=== PATIENT | female | born 1960 | race Caucasian/White ===

== ENCOUNTER 2024-08-03 18:58 | Inpatient (IN) ==
[2024-08-03 19:34] LABS: Basophils % (auto) 0.5 %; Eosinophils # (auto) 0.17 K/uL (0.00-0.50); Eosinophils % (auto) 0.9 %; Hematocrit (blood only) 38.6 % (37.0-47.0); Immature Granulocytes % (auto) 0.5 %; Lymphocytes # (auto) 2.38 K/uL (1.20-3.40); Lymphocytes % (auto) 12.4 %; Mean Corpuscular Hemoglobin 28.2 pg (25.0-34.0); Mean Corpuscular Hgb Conc 33.7 g/dL (32.0-36.0); Mean Corpuscular Volume 83.7 fL (80.0-100.0); Mean Platelet Volume 9.5 fL (9.4-12.4); Monocytes # (auto) 1.62 K/uL (0.11-0.59); Monocytes % (auto) 8.5 %; Neutrophils # (auto) 14.75 K/uL (1.40-6.50); Neutrophils % (auto) 77.2 %; Platelet Count 442 K/uL (130-400); RDW Coefficient of Variation 13.5 % (11.5-14.5); RDW Standard Deviation 41.7 fL (36.4-46.3); Red Blood Count 4.61 M/uL (4.20-5.40); White Blood Count 19.12 K/ul (4.8-10.8)
[2024-08-03 19:53] LABS: Albumin Globulin Ratio 1.1 (0.9-2); Albumin Level 4.2 gm/dl (3.4-5.0); BUN Creatinine Ratio 20.5 (10-20); Bilirubin,Total 0.6 mg/dl (0.2-1.0); Calcium 9.6 mg/dl (8.6-10.3); Creatinine Clr Calc Pharmacy 80.7 ml/min; Est GFR (African American) 93.8 ml/min; Est GFR (Non-African American) 80.9 ml/min; Globulin 3.8 gm/dl (2.5-4.0); Potassium 3.7 mmol/L (3.5-5.1)
[2024-08-03] MEDS ORDERED: VANCOMYCIN CONSULT ACTIVE PRN (19:53)
[2024-08-03] MEDS: PIPERACILLIN/TAZOBACTAM 4.5 GM/100 ML BAG IV ONE (19:55)
[2024-08-03] MEDS: SODIUM CHLORIDE 0.9% 1,000 ML IV ONE ×2 (19:55→20:59)
--- NOTE | 2024-08-03 20:00 | Emergency Department Note ---
Impression & Plan Sepsis, Cellulitis of left leg ED Provider Note HISTORY OF PRESENT ILLNESS: Patient is a 63-year-old female presenting with left leg redness and swelling. Patient reports that she noticed the left lower leg being red and slightly swollen starting about a week ago. She reports over the last week her redness and swelling has progressed up her leg, more noticeably in the last 48 hours. She denies any recent antibiotic use. Denies any trauma to the leg. She reports she thought she got bit by something about a week ago, as she had an itchy wound on the back of her left calf. She is unsure what she was bit by. Denies any fevers at home. Denies any recent antibiotic or steroid use. She denies being diabetic. Denies any significant pain to the leg. She believes her tetanus is up-to-date. She noticed the progressively worsening redness coming up her leg, prompting her to come and get evaluated today. Patient denies any DVT or PE history. She is not on any anticoagulation. ROS: as above PHYSICAL EXAM: Constitutional: Patient appears in no acute distress. HENT: Head: Normocephalic and atraumatic. Eyes: EOMI, PERRL Mouth/Throat: Mucous membranes moist. Neck: Trachea midline. Neck supple. Cardiovascular: Tachycardic with regular rhythm. No murmurs, rubs or gallops. Intact distal pulses. Pulmonary/Chest: No respiratory distress. Breath sounds clear and equal bilaterally. No wheezes or rales. No chest wall tenderness to palpation. Abdominal: Abdomen soft, no tenderness, rebound or guarding. Musculoskeletal: - LLE: Left leg is erythematous from the ankle up to the knee. There are well-healed scabs to the anterior johnson. +2 pitting edema of the extremity. No palpable crepitus. Intact DP and PT pulses. Patient is able to wiggle toes and dorsiflex and plantarflex the ankle. She does have a scabbed over wound on the posterior calf. Skin: Warm and dry. No rash, erythema, pallor or cyanosis Psychiatric: Appropriate mood and affect for situation. Neurological: Alert and keenly responsive. CN II-XII grossly intact, moving all extremities equally and fully. MDM: - Vitals signs showed hypertension and tachycardia - History obtained via patient. History as above. - Chronic conditions affecting care: HTN - Differential diagnoses include, but are not limited to: Cellulitis; necrotizing fasciitis; contact dermatitis - Order placed for continuous cardiac monitoring. At this time, monitor showed rate of 95 bpm with normal sinus rhythm, per my interpretation. - External medical records reviewed. - EKG interpreted by myself showed normal sinus rhythm. Rate 98 bpm. QT 368. No acute ischemic changes. - Laboratory workup interpreted by myself showed leukocytosis (WBC 19.12) with neutrophilic predominance; normal lactate; grossly normal electrolytes; hyperglycemia (glucose 126); normal procalcitonin - CRP ordered - Xray left tib-fib's showed edema of the tissues of the lower extremity but no obvious gas, per my interpretation. - Patient has no appreciable tenderness to palpation of the overlying erythema. - Given patient's tachycardia, leukocytosis and obvious cellulitis of her left lower extremity, she meets sepsis criteria. - Blood culture obtained. - Patient given IV vancomycin, zosyn and clindamycin for antibiotic coverage. - Patient given 2L NS in ER. Tetanus updated. Patient sepsis fluid volume calculation based on ideal body weight is 1568.10 mL. - Discussion was had with wrapper caser about patient's case and need for admission - Hospitalist, Dr. Mohan, consulted for admission - Patient admitted to [facility] for further evaluation and management. I have personally spent 38 minutes of critical care time in the direct management of this patient. This includes bedside care, interpretation of diagnostic studies, and testing, discussion with consultants, patient, and family members, and other required patient management activities. This 38 minutes is in excess of all separately billable procedures. ASSESSMENT AND PLAN: Diagnosis: Sepsis; left lower extremity cellulitis Plan: Admit Past Med/Surg History Problem List (Updated 08/03/24 @ 20:44 by Aggie Avila MD) Cellulitis of left leg (Acute) Sepsis (Acute) Lab test negative for COVID-19 virus (Acute) Social History Smoking Status: Never smoker Preferred Language: Kazakh Feels Safe at Home: Yes Allergies Allergies Allergy/AdvReac Type Severity Reaction Status Date / Time No Known Allergies Allergy Unverified 08/03/24 20:39 Home Meds Home Medications Medication Instructions Recorded Confirmed nortriptyline 50 mg capsule 50 mg PO HS 03/20/24 08/03/24 propranolol 60 mg capsule,24 60 mg PO QAM 03/20/24 08/03/24 hr,extended release rosuvastatin 10 mg tablet 10 mg PO HS 03/20/24 08/03/24 tolterodine 2 mg capsule,extended 2 mg PO QAM 03/20/24 08/03/24 release 24 hr acetaminophen 300 mg-codeine 30 mg 1 tab PO Q6H PRN Mild Pain (Scale 08/03/24 08/03/24 tablet Score 1-4) aspirin 81 mg tablet,delayed 81 mg PO DAILY 08/03/24 08/03/24 release celecoxib 200 mg capsule 200 mg PO DAILY 08/03/24 08/03/24 gabapentin 300 mg capsule 300 mg PO BID 08/03/24 08/03/24 methimazole 5 mg tablet 5 mg PO QAM 08/03/24 08/03/24 oxycodone 5 mg tablet 5 mg PO Q4H PRN Pain 08/03/24 08/03/24 Results & Data (ED) Vital Signs Vital Signs - 24 hr 08/03/24 19:06 08/03/24 19:34 08/03/24 19:57 Temperature 36.2 C L Temperature Source Temporal Artery Scan Pulse Rate 97 H 95 H Pulse Rate [Finger] 97 H Pulse Rhythm [Finger] Regular Pulse Strength [Finger] Normal Respiratory Rate 16 20 Respiratory Effort / Characteristics Non-Labored Non-Labored Spontaneous Respiratory Depth Normal Normal Respiratory Pattern Regular Regular Blood Pressure 141/82 H Blood Pressure [Left Arm] 135/101 H Blood Pressure Mean 101 Blood Pressure Mean [Left Arm] 112 Pulse Oximetry 97 97 Oxygen Delivery Method Room Air Room Air Sepsis Recent Fever Within 48 Hours No Sepsis New/Unexplained Change in Mental Status No Sepsis Action Taken by Nursing No Action Required Laboratory Data 08/03/24 19:15 08/03/24 19:15 Lab Results 08/03/24 08/03/24 Range/Units 19:15 19:48 WBC 19.12 H (4.8-10.8) K/ul RBC 4.61 (4.20-5.40) M/uL Hgb 13.0 (12.0-16.0) g/dl Hct 38.6 (37.0-47.0) % MCV 83.7 (80.0-100.0) fL MCH 28.2 (25.0-34.0) pg MCHC 33.7 (32.0-36.0) g/dL RDW Std Deviation 41.7 (36.4-46.3) fL RDW Coeff of Elina 13.5 (11.5-14.5) % Plt Count 442 H (130-400) K/uL MPV 9.5 (9.4-12.4) fL Immature Gran % (Auto) 0.5 % Neut % (Auto) 77.2 % Lymph % (Auto) 12.4 % [place] % (Auto) 8.5 % Eos % (Auto) 0.9 % Baso % (Auto) 0.5 % Neut # (Auto) 14.75 H (1.40-6.50) K/uL Lymph # (Auto) 2.38 (1.20-3.40) K/uL [place] # (Auto) 1.62 H (0.11-0.59) K/uL Eos # (Auto) 0.17 (0.00-0.50) K/uL Baso # (Auto) 0.10 (0.00-0.20) K/uL Immature Gran # (Auto) 0.10 (0.01-0.20) K/uL Sodium 135 L (136-145) mmol/L Potassium 3.7 (3.5-5.1) mmol/L Chloride 100 (98-107) mmol/L Carbon Dioxide 27 (21-32) mmol/L Anion Gap 8 (3-11) BUN 16 (6-23) mg/dl Creatinine 0.78 (0.6-1.2) mg/dl Est Cr Clr Drug Dosing 80.7 ml/min Est GFR ( Amer) 93.8 ml/min Est GFR (Non-Af Amer) 80.9 ml/min BUN/Creatinine Ratio 20.5 H (10-20) Glucose 126 H (70-99(Fasting)) mg/dl Lactate 0.9 (0.4-2.0) mmol/L Calcium 9.6 (8.6-10.3) mg/dl Total Bilirubin 0.6 (0.2-1.0) mg/dl AST 17 (13-39) U/L ALT 17 (7-52) U/L Alkaline Phosphatase 149 H (34-104) U/L Total Protein 8.0 (6.0-8.3) gm/dl Albumin 4.2 (3.4-5.0) gm/dl Globulin 3.8 (2.5-4.0) gm/dl Albumin/Globulin Ratio 1.1 (0.9-2) Procalcitonin 0.09 (0-0.5) ng/ml Administered Medications Vancomycin HCl 2,250 mg/ (Sodium Chloride) 545 mls @ 200 mls/hr IV NOW ONE Stop: 08/03/24 22:36 Last Admin: 08/03/24 20:54 Dose: 200 mls/hr Documented By: SALOMON Sodium Chloride (Nss) 1,000 mls @ 999 mls/hr IV .Q1H1M ONE Stop: 08/03/24 21:43 Last Admin: 08/03/24 20:59 Dose: 999 mls/hr Documented By: SALOMON Discontinued Medications Diphtheria/Pertussis/Tetanus Vacc (Diphther/Tetan/Pertus Vaccine (Tdap, Adol/Adult) 0.5ml) 0.5 ml IM .ONCE ONE Stop: 08/03/24 20:10 Last Admin: 08/03/24 20:43 Dose: 0.5 ml Documented By: SALOMON Fentanyl Citrate (Fentanyl Citrate Pf 100 Mcg/2 Ml Vial) 50 mcg IV NOW STA Stop: 08/03/24 21:05 Last Admin: 08/03/24 21:18 Dose: 50 mcg Documented By: SALOMON Sodium Chloride (Nss) 1,000 mls @ 999 mls/hr IV .Q1H1M ONE Stop: 08/03/24 20:40 Last Infusion: 08/03/24 20:59 Dose: Infused Documented By: Admin: 08/03/24 19:55 Dose: 999 mls/hr Documented By: TOM Piperacillin Sod/Tazobactam Sod (Zosyn) 4.5 gm in 100 mls @ 200 mls/hr IV NOW ONE Stop: 08/03/24 20:09 Last Infusion: 08/03/24 20:42 Dose: Infused Documented By: Admin: 08/03/24 19:55 Dose: 200 mls/hr Documented By: TOM Clindamycin Phosphate (Cleocin/D5w) 900 mg in 50 mls @ 100 mls/hr IV NOW ONE Stop: 08/03/24 20:09 Last Infusion: 08/03/24 21:13 Dose: Infused Documented By: Admin: 08/03/24 20:42 Dose: 100 mls/hr Documented By: SALOMON Discharge Plan Visit Data Chief Complaint: Bite Stated Complaint: LEFT LEG SWOLLEN POSSIBLE BITE ED Provider: Aggie Avila Discharge Problem: Sepsis, Cellulitis of left leg Forms Stand Alone Forms: [facility] Prescriptions Prescriptions: No Action celecoxib 200 mg capsule 200 mg PO DAILY acetaminophen-codeine 300-30 mg tablet 1 tab PO Q6H PRN (Reason: Mild Pain (Scale Score 1-4)) aspirin 81 mg Tablet,Delayed Release (Dr/Ec) 81 mg PO DAILY methimazole 5 mg tablet 5 mg PO QAM gabapentin 300 mg capsule 300 mg PO BID oxycodone 5 mg tablet 5 mg PO Q4H PRN (Reason: Pain) tolterodine 2 mg capsule,extended release 24hr 2 mg PO QAM propranolol 60 mg capsule,extended release 24 hr 60 mg PO QAM nortriptyline 50 mg capsule 50 mg PO HS rosuvastatin 10 mg tablet 10 mg PO HS Referrals Referrals: Sophia Ramirez MD [Primary Care Provider] -
[2024-08-03] MEDS: CLINDAMYCIN/D5W 900 MG/50 ML BAG IV ONE (20:42)
[2024-08-03] MEDS: DIPHTHER/TETAN/PERTUS Vaccine (Tdap, Adol/Adult) 0.5mL IM ONE (20:43)
[2024-08-03] MEDS: VANCOMYCIN HCL 2,250 MG in SODIUM CHLORIDE 0.9% 500 ML IV ONE (20:54)
[2024-08-03] MEDS: fentaNYL citrate PF 100 MCG/2 ML VIAL IV STA (21:18)
[2024-08-03 22:25] LABS: C Reactive Protein 32.5 mg/dl (0-0.5)
--- NOTE | 2024-08-03 22:36 | History & Physical Report ---
Date of Service August 03, 2024 Assessment & Plan (1) Cellulitis of left leg: Plan: 63-year-old female with past medical history significant for prediabetes, hyperlipidemia, allergic rhinitis, incidental pulmonary nodule, hypertension, overactive bladder, osteoarthrosis, chronic bilateral low back pain, myelopathy, postconcussion syndrome, lichen sclerosis, obesity, insomnia, hyperthyroidism comes because of left lower extremity cellulitis. Patient states she had a bug bite in the left calf region about a week ago she thinks it might be a spider bite. She developed small wound at the bite site. Also developed erythema spreading into the left leg below knee downwards. And having a lot of pain. And having pain while ambulating. As it is is getting worse she came to the ER today. Denies any fevers. About 6 to 7 weeks ago she had a back surgery in [place] and she is ambulating with the cane currently. Has mild headache. Vision is okay. No runny nose or sore throat. Appetite is okay. No chest pain or shortness of breath. No nausea. No abdominal pain. Normal bowel and bladder movements. Hemodynamics are okay currently. Resting comfortably. Cellulitis of left leg Bug bite Will follow Lyme screen Hemodynamics okay Afebrile Lactic acid 0.9 CRP 32 WBC 19 Received Vanco and Zosyn and clinda in the ER Will continue with Vanco and Zosyn Gentle fluids Follow cultures Will also follow Dopplers to rule out DVT-No DVT Will Follow the response Close monitor Prediabetes Will follow HbA1c levels Diabetic diet Hyperthyroidism On methimazole Follow TSH Hypertension On propranolol and lisinopril/hctz Will monitor Hyperlipidemia On statin Chronic back pain Recent back surgery pt/ot when stable Continue home pain medications DVT prophylaxis Lovenox Disposition Medical floor Full code History of Present Illness Chief Complaint: Left lower extreme cellulitis Primary Care Provider: Sophia Ramirez MD 63-year-old female with past medical history significant for prediabetes, hyperlipidemia, allergic rhinitis, incidental pulmonary nodule, hypertension, ov eractive bladder, osteoarthrosis, chronic bilateral low back pain, myelopathy, postconcussion syndrome, lichen sclerosis, obesity, insomnia, hyperthyroidism comes because of left lower extremity cellulitis. Patient states she had a bug bite in the left calf region about a week ago she thinks it might be a spider bite. She developed small wound at the bite site. Also developed erythema spreading into the left leg below knee downwards. And having a lot of pain. And having pain while ambulating. As it is is getting worse she came to the ER today. Denies any fevers. About 6 to 7 weeks ago she had a back surgery in [place] and she is ambulating with the cane currently. Has mild headache. Vision is okay. No runny nose or sore throat. Appetite is okay. No chest pain or shortness of breath. No nausea. No abdominal pain. Normal bowel and bladder movements. Hemodynamics are okay currently. Resting comfortably. Past medical history. As mentioned above. Past surgical history.Colonoscopy. Ligation of oviducts. Laminectomy. Left Achilles tendon tenotomy. Social history. No smoking. Quit alcohol 1997. No drug use. Family history. Sister had breast cancer. Mother had hypertension. Maternal grandmother had SLE. Paternal grandmother had diabetes, heart disorder. Allergies Allergy/AdvReac Type Severity Reaction Status Date / Time No Known Allergies Allergy Unverified 08/03/24 20:39 Home Medications Medication Instructions Recorded Confirmed Type nortriptyline 50 mg capsule 50 mg PO HS 03/20/24 08/03/24 History propranolol 60 mg capsule,24 60 mg PO QAM 03/20/24 08/03/24 History hr,extended release rosuvastatin 10 mg tablet 10 mg PO HS 03/20/24 08/03/24 History tolterodine 2 mg capsule,extended 2 mg PO QAM 03/20/24 08/03/24 History release 24 hr acetaminophen 300 mg-codeine 30 mg 1 tab PO Q6H PRN Mild Pain (Scale 08/03/24 08/03/24 History tablet Score 1-4) aspirin 81 mg tablet,delayed 81 mg PO DAILY 08/03/24 08/03/24 History release celecoxib 200 mg capsule 200 mg PO DAILY 08/03/24 08/03/24 History gabapentin 300 mg capsule 300 mg PO BID 08/03/24 08/03/24 History lisinopril 10 1 tab PO DAILY 08/03/24 08/03/24 History mg-hydrochlorothiazide 12.5 mg tablet methimazole 5 mg tablet 5 mg PO QAM 08/03/24 08/03/24 History oxycodone 5 mg tablet 5 mg PO Q4H PRN Pain 08/03/24 08/03/24 History Past Med/Surg History Problem List (Updated 08/03/24 @ 20:44 by Aggie Avila MD) Cellulitis of left leg (Acute) Sepsis (Acute) Lab test negative for COVID-19 virus (Acute) Social History Smoking Status: Never smoker Second Hand Exposure: No; Do You Dip or Chew Tobacco: No; Tobacco Cessation Education Requested by Patient: No Hx Alcohol Use: No Hx Substance Use: No Preferred Language: Belarusian Communication Ability: Effective High Wire Artist Required: No Beliefs That Will Affect Care: None Current Living Situation: Significant Other Current Living Situation Comment: boyfriend Feels Safe at Home: Yes Safety Concerns: Feels Safe At This Time Assistive Devices: Cane and Glasses Review of Systems Review of Systems: All systems reviewed & are unremarkable except as noted in HPI & below Physical Exam Physical Exam: General- Not in distress. Head- atraumatic Eyes- PERRL. ENT- oropharynx clear Neck- supple, no JVD. Lungs- clear to auscultation no wheezing or crackles. Heart- regular rhythm; no murmur, no gallop. Abdomen- normal bowel sounds, soft, nontender, no distension. Extremities- Left lower extremity erythematous and edematous and warm on palpation. Small wound seen in left calf lateral aspect. no obvious drainage seen Neuro- alert, oriented PERRL, no facial palsy; no dysarthria; moves extremities Results & Data Results & Data Vital Signs (Past 12 Hours) Vital Signs Temp Pulse Pulse Resp BP BP Pulse Ox 08/03/24 21:21 98 H 20 97 08/03/24 21:21 152/102 H 08/03/24 21:21 152/102 H 08/03/24 21:18 98 H 20 98 08/03/24 20:53 155/107 H 08/03/24 20:48 99 H 20 92 08/03/24 20:27 101 H 18 98 08/03/24 20:06 100 H 26 H 96 08/03/24 20:00 135/101 H 08/03/24 20:00 135/101 H 08/03/24 19:57 97 H 20 135/101 H 97 08/03/24 19:45 96 H 17 97 08/03/24 19:34 95 H 08/03/24 19:33 93 H 19 97 08/03/24 19:30 138/94 08/03/24 19:30 138/94 08/03/24 19:30 138/94 08/03/24 19:06 36.2 C L 97 H 16 141/82 H 97 O2 Del Method 08/03/24 21:21 08/03/24 21:21 08/03/24 21:21 08/03/24 21:18 08/03/24 20:53 08/03/24 20:48 08/03/24 20:27 08/03/24 20:06 08/03/24 20:00 08/03/24 20:00 08/03/24 19:57 Room Air 08/03/24 19:45 08/03/24 19:34 08/03/24 19:33 08/03/24 19:30 08/03/24 19:30 08/03/24 19:30 08/03/24 19:06 Room Air Diagnostic Findings Laboratory Results WBC 19.12 K/ul (4.8-10.8) H 08/03/24 19:15 RBC 4.61 M/uL (4.20-5.40) 08/03/24 19:15 Hgb 13.0 g/dl (12.0-16.0) 08/03/24 19:15 Hct 38.6 % (37.0-47.0) 08/03/24 19:15 MCV 83.7 fL (80.0-100.0) 08/03/24 19:15 MCH 28.2 pg (25.0-34.0) 08/03/24 19:15 MCHC 33.7 g/dL (32.0-36.0) 08/03/24 19:15 RDW Std Deviation 41.7 fL (36.4-46.3) 08/03/24 19:15 RDW Coeff of Elina 13.5 % (11.5-14.5) 08/03/24 19:15 Plt Count 442 K/uL (130-400) H 08/03/24 19:15 MPV 9.5 fL (9.4-12.4) 08/03/24 19:15 Immature Gran % (Auto) 0.5 % 08/03/24 19:15 Neut % (Auto) 77.2 % 08/03/24 19:15 Lymph % (Auto) 12.4 % 08/03/24 19:15 [place] % (Auto) 8.5 % 08/03/24 19:15 Eos % (Auto) 0.9 % 08/03/24 19:15 Baso % (Auto) 0.5 % 08/03/24 19:15 Neut # (Auto) 14.75 K/uL (1.40-6.50) H 08/03/24 19:15 Lymph # (Auto) 2.38 K/uL (1.20-3.40) 08/03/24 19:15 [place] # (Auto) 1.62 K/uL (0.11-0.59) H 08/03/24 19:15 Eos # (Auto) 0.17 K/uL (0.00-0.50) 08/03/24 19:15 Baso # (Auto) 0.10 K/uL (0.00-0.20) 08/03/24 19:15 Immature Gran # (Auto) 0.10 K/uL (0.01-0.20) 08/03/24 19:15 Sodium 135 mmol/L (136-145) L 08/03/24 19:15 Potassium 3.7 mmol/L (3.5-5.1) 08/03/24 19:15 Chloride 100 mmol/L (98-107) 08/03/24 19:15 Carbon Dioxide 27 mmol/L (21-32) 08/03/24 19:15 Anion Gap 8 (3-11) 08/03/24 19:15 BUN 16 mg/dl (6-23) 08/03/24 19:15 Creatinine 0.78 mg/dl (0.6-1.2) 08/03/24 19:15 Est Cr Clr Drug Dosing 80.7 ml/min 08/03/24 19:15 Est GFR ( Amer) 93.8 ml/min 08/03/24 19:15 Est GFR (Non-Af Amer) 80.9 ml/min 08/03/24 19:15 BUN/Creatinine Ratio 20.5 (10-20) H 08/03/24 19:15 Glucose 126 mg/dl (70-99(Fasting)) H 08/03/24 19:15 Lactate 0.9 mmol/L (0.4-2.0) 08/03/24 19:48 Calcium 9.6 mg/dl (8.6-10.3) 08/03/24 19:15 Total Bilirubin 0.6 mg/dl (0.2-1.0) 08/03/24 19:15 AST 17 U/L (13-39) 08/03/24 19:15 ALT 17 U/L (7-52) 08/03/24 19:15 Alkaline Phosphatase 149 U/L (34-104) H 08/03/24 19:15 C-Reactive Protein 32.50 mg/dl (0-0.5) H 08/03/24 19:15 Total Protein 8.0 gm/dl (6.0-8.3) 08/03/24 19:15 Albumin 4.2 gm/dl (3.4-5.0) 08/03/24 19:15 Globulin 3.8 gm/dl (2.5-4.0) 08/03/24 19:15 Albumin/Globulin Ratio 1.1 (0.9-2) 08/03/24 19:15 Procalcitonin 0.09 ng/ml (0-0.5) 08/03/24 19:15 ECG Additional Comments: ECG normal sinus rhythm rate of 98. No significant change was found. Code Status & VTE Plan VTE Prophylaxis Plan VTE Prophylaxis will be ordered: Yes
[2024-08-03] MEDS ORDERED: HYDROmorphone INJ 0.5 MG/0.5 ML SYR IV PRN (23:34)
[2024-08-03] MEDS ORDERED: POLYETHYLENE (MIRALAX) 17 GM PACK PO PRN (23:34)
[2024-08-04] MEDS: GABAPENTIN 300 MG CAP PO SCH (00:07)
[2024-08-04] MEDS: cloNIDine HCL 0.1 MG TAB PO ONE (00:08)
[2024-08-04] MEDS: NORTRIPTYLINE HCL 25 MG CAP PO SCH (00:08)
[2024-08-04] MEDS: oxyCODONE HCL IR 5 MG TAB (IMMEDIATE RELEASE) PO PRN (00:08)
[2024-08-04] MEDS: SODIUM CHLORIDE 0.9% 1,000 ML IV SCH (00:31)
[2024-08-04] MEDS: PIPERACILLIN/TAZOBACTAM 4.5 GM/100 ML BAG IV SCH (01:27)
--- OUTSIDE RECORDS SUMMARY | 2024-08-04 02:23 | External Medical Summary | Summary of Care ---
Author Name Unknown Organization [facility] Address [address] [place] [address] Phone [phone] Care Team Providers Care Chief Compressor Station Engineer Name Role Phone Sophia Panda MD Primary Care Provide r Reason for Visit * Reason Comments eRx-Medication Refill Encounter Details Date Type Department Care Team (Late st Contact Info) Description 07/29/2024 Refill Family Medicine [address] [phone] Sophia Panda MD [address] [place] [address] [place] [id number] DDD (degenerative disc disease), thoracolumbar Allergies Active Allergy Reactions Criticality Noted Date Comments No Known Drug Allergy 06/24/2001 documented as of this encounter (statuses as of 07/30/2024) Medications Medication Sig Dispensed Refills Start Date End Date Status methIMAzole 5 MG Oral Tablet (Tapazole) Take 1 Tablet by mouth in the morning. 30 Tablet 5 04/02/2024 Active Sennosides 8.6 MG Oral Tablet (Senokot) Take 2 Tablets by mouth daily as needed for Constipation. 30 Tablet 05/12/2024 Active Gabapentin 300 MG Oral Capsule (Neurontin)Indicati ons:Chronic bilateral low back pain with left-sided sciatica Take 1 Capsule by mouth in the morning and 1 Capsule before bedtime. 60 Capsule 5 05/18/2024 Active Acetaminophen 325 MG Oral Tablet (Tylenol) Take 2 Tablets by mouth every 6 hours as needed for Pain, Moderate or Pain, Mild. 30 Tablet 05/25/2024 Active Propranolol HCl ER 60 MG Oral Capsule Extended Release 24 Hour (Inderal LA)Indications:Prim stevie hypertension Take 1 Capsule by mouth in the morning. 90 Capsule 3 06/10/2024 Active Lisinopril-hydroCHL OROthiazide 10-12.5 MG Oral TabletIndications:P rimary hypertension Take 1 Tablet by mouth in the morning. 90 Tablet 3 06/12/2024 Active Rosuvastatin Calcium 10 MG Oral Tablet (Crestor)Indication s:Mixed hyperlipidemia TAKE ONE TABLET BY MOUTH AT BEDTIME 90 Tablet 3 07/01/2024 Active Cyclobenzaprine HCl 10 MG Oral Tablet (Flexeril) Take 1 Tablet by mouth 3 times a day as needed for Muscle spasms. 30 Tablet 07/10/2024 Active Nortriptyline HCl 50 MG Oral Capsule (Pamelor)Indication s:Primary insomnia TAKE ONE CAPSULE BY MOUTH BEFORE BED 90 Capsule 3 07/13/2024 Active Tolterodine Tartrate ER 2 MG Oral Capsule Extended Release 24 Hour (Detrol LA)Indications:Over active bladder TAKE ONE CAPSULE BY MOUTH IN THE MORNING 90 Capsule 2 07/13/2024 Active Acetaminophen-Codei ne 300-30 MG Oral Tablet Take 1 Tablet by mouth every 6 hours as needed for Pain, Mild. 40 Tablet 1 07/15/2024 Active oxyCODONE HCl 5 MG Oral Tablet (Oxy IR) Take 1 Tablet by mouth every 4 hours as needed for Pain, Severe. 20 Tablet 07/15/2024 Active Celecoxib 200 MG Oral Capsule (CeleBREX)Indicatio ns:DDD (degenerative disc disease), thoracolumbar TAKE ONE CAPSULE BY MOUTH IN THE MORNING 30 Capsule 1 07/30/2024 Active Celecoxib 200 MG Oral Capsule (CeleBREX)Indicatio ns:DDD (degenerative disc disease), thoracolumbar Take 1 Capsule by mouth in the morning. 30 Capsule 1 06/08/2024 Discontinued documented as of this encounter (statuses as of 07/30/2024) Active Problems Problem Noted Date Diagnosed Date BMI 37.0-37.9, adult 05/18/2024 Overview: 211 Myelopathy 05/12/2024 DDD (degenerative disc disease), thoracolumbar 0 05/12/2024 Chronic bilateral low back pain with left-sided sciatica 03/31/2024 Mixed hyperlipidemia 03/31/2024 Insomnia 03/31/2024 Prediabetes 03/02/2024 Overview: Per Prediabetes protocol Post concussion syndrome 07/22/2017 Incidental pulmonary nodule, > 3mm and < 8mm 07/2017 Overview: 5mm and 6 mm LLL Primary hypertension 06/15/2016 Lichen sclerosus 02/29/2016 Overactive bladder 06/15/2015 Allergic rhinitis due to allergen GENERAL OSTEOARTHROSIS documented as of this encounter (statuses as of 07/30/2024) Resolved Problems Problem Noted Date Diagnosed Date Resolved Date IRON DEFIC ANEMIA 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 Major depressive disorder Overview: ICD-10 update of inactive term PLANTAR FIBROMATOSIS 013 BMI 33.0-33.9,adult 06/15/20 15 HTN, goal below 140/90 06/27 documented as of this encounter (statuses as of 07/30/2024) Immunizations Name Administration Dates Next Due COVID-19 mRNA, LNP-s, No Pre serve, 2-Dose Series (Moderna) 03/21/2021,02/28/2021 COVID-19, LNP-s, No Preserve , Esvin-sucrose, Ages 12+ (Pfizer) 04/03/2022 Covid-19, Mrna, Lnp-s, Pf, B ivalent, 30 Mcg, IM, 12 yrs and above (Pfizer) 03/14/2023 Seasonal Influenza, PF, 6 M & above, IM , (FluLaval or Fluzone) 10/01/2023,08/22/2022,09/21/2021,2019,09/10/2019,09/05/2018 Seasonal Influenza, Quadriva lent, No Preserve, IM 08/09/2017,02/18/2017,08/22/2015 Seasonal Influenza, Trivalen t, (IIV3), with Preserv, (Fluzone) 10/14/2014 TDAP (age 10 and older)(Boostrix) 10/14/2014 Zoster Vaccine Recombinant (Shingrix) 05/16/2020 ,03/14/2020 documented as of this encounter Social History Tobacco Use Types Packs/Day Years Used Date Smoking Tobacco: Never Smokeless Tobacco: Never Alcohol Use Standard Drinks/Week Comments Not Currently 0 (1 standard drink = 0.6 oz pure alcohol) 6 pack of beer qdaily x 2years. Quit 1997. PHQ-2 Answer Date Recorded PHQ-2 Score -1 09/19/2020 Hunger Vital Sign Answer Date Recorded Worried About Running Out of Food in the Last Ye ar Never true 03/14/2020 Ran Out of Food in the Last Year Never true 03/14/2020 Utilities Answer Date Recorded Do you have trouble paying y our heating, water, or electric bill? (Adult - for ages 18 years and over) Not on file 05/12/2024 Is your family able to pay t he heat, water, or electric bill? (Household - for ages 0-17 years) Not on file 05/12/2024 Does your family have access to good internet? (Household - for ages 0-17 years) Not on file 05/12/2024 Social Connections Answer Date Recorded How often do you feel lonely or isolated from those around you? (Adult - for ages 18 years and over) Not on file 05/12/2024 Sex and Gender Information Value Date Recorded Sex Assigned at Not on file Gender Identity Not on file Sexual Orientation Not on file Job Start Date Occupation Industry Not on file Not on file Not on file documented as of this encounter Functional Status Functional Status Response Date of Assess ment Are you deaf or do you have serious difficulty h earing? No 05/11/2024 Are you blind or do you have serious difficulty seeing, even when wearing glasses? No 05/11/2024 Do you have serious difficul ty walking or climbing stairs? (5 years old or older) No 05/11/2024 Do you have difficulty dress ing or bathing? (5 years old or older) No 05/11/2024 Because of a physical, menta l, or emotional condition, do you have difficulty doing errands alone such as visiting a doctor s office or shopping? (15 years old or older) No 05/11/20 24 Cognitive Status Response Date of Assessm ent Because of a physical, menta l, or emotional condition, do you have serious difficulty concentrating, remembering, or making decisions? (5 years old or older) No 05/11/2024 documented as of this encounter Miscellaneous Notes * Telephone Encounter - Segun Khalil [facility] [place] - 07/30/2024 5:48 PM EDTSigned Prescriptions: Disp Refills Celecoxib 200 MG Oral Capsule (CeleBREX) 30 Cap*1 Sig: TAKE ONECAPSULE BY MOUTH IN THE MORNINGAuthorizing Provider: Adolfo PANDA User: SEGUN HOWELL documented in this encounter Plan of Treatment Upcoming Encounters Date Type Department Care Team (Late st Contact Info) Description 08/06/2024 10:15 AM EDT Office Visit Orthopaedics [facility] [address] [facility] [place] [address] Trevor Palacio PA-C [address] [place] [address] 10/02/2024 11:30 AM EST Office Visit Endocrinology [address] [place] [phone] Nikhil Cruz CRNP [address] [facility] [id number] 10/15/2024 11:00 AM EST Office Visit Neurosurgery, [facility] [address] [facility] [place] [phone] Richard Cazares MD [address] [facility] [place] [address] 02/04/2025 2:30 PM EDT Imaging Radiology [address] [place] [address] 03/15/2025 2:00 PM EDT Office Visit Family Medicine [address] [place] [phone] Sophia Panda MD [address] [place] [address] [place] [address] Scheduled Procedures Name Priority Associated Diagnoses Date/Ti me COLONOSCOPY FLEXIBLE PROXIMA L DIAGNOSTIC Recall Special screening for malignant neoplasms, colon Health Maintenance Due Date Last Done Comments HPV/Co-Test 1990 Cologuard 2005 Fecal Occult Blood Test 2005 12/12/2001 Sigmoidoscopy 2005 Depression Screening 09/19/2021 09/19/2020 Cervical Cancer Screening 01/17/2024 Pap Smear 01/17/2024 01/17/2021, 11/26, 12/21/2015, Additional history exists COVID-19 Vaccine ( season) 2024 03/14/2023, 04/03/2022, 03/21/2021, Additional history exists Influenza Vaccine (FLU shot) (#1) 2024 10/01/2023, 08/22/2022, 09/21/2021, Additional history exists DTap/Tdap Vaccines (2 - Td or Tdap) 10/14/2024 10/14/2014 Mammogram 02/02/2025 02/03/2024, 03/07/2023, 01/30/2022, Additional history exists HbA1c 02/26/2025 02/27/2024 GFR 05/01/2025 05/01/2024, 02/23, 01/19/2022, Additional history exists Albumin/Creatinine Ratio 10/01/2025 022, 09/21/2021, 09/19/2020, Additional history exists Lipid Panel 03/10/2029 03/10/2024, 02/23, 01/01/2017 Colonoscopy 05/03/2031 05/03/2021, 0607/2021, 01/10/2016, Additional history exists Colorectal Cancer Screening 05/03/2031 RETIRED - COLONOSCOPY-EVERY 5 YRS AGES 18-100 Discontinued 05/03/2021, 05/03/2021, 01/10/2016, Additional history exists HPV (Gardasil) Vaccine Aged Out No lo nger eligible based on patient's age to complete this topic Hepatitis B Vaccine Aged Out No longe r eligible based on patient's age to complete this topic MENINGOCOCCAL (MENACTRA/MENVEO) Aged Out No longer eligible based on patient's age to complete this topic Pneumococcal Vaccine: Pediatrics (0 to 5 Years) and At-Risk Patients (6 to 64 Years) Aged Out No longer eligible based on patient's age to complete this topic documented as of this encounter Medical Devices Not on filedocumented as of this encounter Visit Diagnoses Diagnosis DDD (degenerative disc disease), thoracolumbar Degeneration of thoracic or thoracolumbar intervertebral disc documented in this encounter Advance Directives * Full Code (Latest Code Status on File) Date Activated Date Inactivated Comments 05/11/2024 11:10 AM 05/12/2024 9:09 PM This order reflects the patients wishes and were consensually agreed upon. Question Answer Comments Discussion of Advance Directives occurred with: Patient * Full Code Date Activated Date Inactivated Comments 05/11/2024 6:39 AM 05/11/2024 11:10 AM This order reflects the patients wishes and were consensually agreed upon. Question Answer Comments Discussion of Advance Directives occurred with: Patient Care Teams Chief Compressor Station Engineer Relationship Specialty Start Date End Date Sophia Panda MD [address] [place] [address] [place] [phone] PCP - General Family Medicine 03/31/24 documented as of this encounter
--- OUTSIDE RECORDS SUMMARY | 2024-08-04 02:23 | External Medical Summary | Summary of Care ---
Author Name Unknown Organization [facility] Address [address] [place] [address] Phone [phone] Care Team Providers Care Breakfast Supervisor Name Role Phone Sophia Ramirez MD Primary Care Provide r Reason for Visit * Reason Comments eRx-Medication Refill Encounter Details Date Type Department Care Team (Late st Contact Info) Description 07/30/2024 Refill Family Medicine [address] [phone] Gonzales Elizondo MD [address] [place] [address] [place] [address] Primary hypertension Allergies Active Allergy Reactions Criticality Noted Date Comments No Known Drug Allergy 06/24/2001 documented as of this encounter (statuses as of 07/31/2024) Medications Medication Sig Dispensed Refills Start Date End Date Status methIMAzole 5 MG Oral Tablet (Tapazole) Take 1 Tablet by mouth in the morning. 30 Tablet 5 04/02/2024 Active Sennosides 8.6 MG Oral Tablet (Senokot) Take 2 Tablets by mouth daily as needed for Constipation. 30 Tablet 05/12/2024 Active Gabapentin 300 MG Oral Capsule (Neurontin)Indications :Chronic bilateral low back pain with left-sided sciatica Take 1 Capsule by mouth in the morning and 1 Capsule before bedtime. 60 Capsule 5 05/18/2024 Active Acetaminophen 325 MG Oral Tablet (Tylenol) Take 2 Tablets by mouth every 6 hours as needed for Pain, Moderate or Pain, Mild. 30 Tablet 05/25/2024 Active Propranolol HCl ER 60 MG Oral Capsule Extended Release 24 Hour (Inderal LA)Indications:Primary hypertension Take 1 Capsule by mouth in the morning. 90 Capsule 3 06/10/2024 Active Lisinopril-hydroCHLORO thiazide 10-12.5 MG Oral TabletIndications:Prim stevie hypertension Take 1 Tablet by mouth in the morning. 90 Tablet 3 06/12/2024 Active Rosuvastatin Calcium 10 MG Oral Tablet (Crestor)Indications:M ixed hyperlipidemia TAKE ONE TABLET BY MOUTH AT BEDTIME 90 Tablet 3 07/01/2024 Active Cyclobenzaprine HCl 10 MG Oral Tablet (Flexeril) Take 1 Tablet by mouth 3 times a day as needed for Muscle spasms. 30 Tablet 07/10/2024 Active Nortriptyline HCl 50 MG Oral Capsule (Pamelor)Indications:P rimary insomnia TAKE ONE CAPSULE BY MOUTH BEFORE BED 90 Capsule 3 07/13/2024 Active Tolterodine Tartrate ER 2 MG Oral Capsule Extended Release 24 Hour (Detrol LA)Indications:Overact darinel bladder TAKE ONE CAPSULE BY MOUTH IN THE MORNING 90 Capsule 2 07/13/2024 Active Acetaminophen-Codeine 300-30 MG Oral Tablet Take 1 Tablet by mouth every 6 hours as needed for Pain, Mild. 40 Tablet 1 07/15/2024 Active oxyCODONE HCl 5 MG Oral Tablet (Oxy IR) Take 1 Tablet by mouth every 4 hours as needed for Pain, Severe. 20 Tablet 07/15/2024 Active Celecoxib 200 MG Oral Capsule (CeleBREX)Indications: DDD (degenerative disc disease), thoracolumbar TAKE ONE CAPSULE BY MOUTH IN THE MORNING 30 Capsule 1 07/30/2024 Active documented as of this encounter (statuses as of 07/31/2024) Active Problems Problem Noted Date Diagnosed Date [...] as of this encounter (statuses as of 07/31/2024) Resolved Problems Problem Noted Date Diagnosed Date Resolved Date IRON DEFIC ANEMIA 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 Major depressive disorder Overview: ICD-10 update of inactive term PLANTAR FIBROMATOSIS 013 BMI 33.0-33.9,adult 06/15/20 15 HTN, goal below 140/90 06/27 documented as of this encounter (statuses as of 07/31/2024) Immunizations Name Administration Dates Next Due COVID-19 [...] (15 years old or older) No 05/11/20 Cognitive Status Response Date of Assessm ent Because of a physical, menta l, or emotional condition, do you have serious difficulty concentrating, remembering, or making decisions? (5 years old or older) No 05/11/2024 documented as of this encounter Miscellaneous Notes * Telephone Encounter - [facility] - 07/31/2024 6:22 PM EDT Refused Prescriptions: Disp Refills Lisinopril-hydroCHLOROthiazide 10-12.5 MG *5 Tabl*0 Sig: Take 1Tablet by mouth in the morning.Refused By: [facility] Ref[facility]: Too soon--------- documented in this encounter Plan of Treatment Upcoming Encounters Date Type Department Care Team (Late st Contact Info) Description 08/06/2024 10:15 AM EDT Office [facility] [place] [address] Trevor Palacio PA-C [address] [place] [address] 10/02/2024 11:30 AM EST Office Visit Endocrinology [address] [place] [phone] Nikhil Cruz CRNP [address] [facility] [place] [address] 10/15/2024 11:00 AM EST Office Visit NeurosurgeryMelanie [address] [place] [phone] [facility] [address] [facility] [address] 02/04/2025 2:30 PM EDT Imaging Radiology [address] [place] [address] 03/15/2025 2:00 PM EDT Office Visit Family Medicine [address] [place] [address] Sophia Ramirez MD [address] [place] [address] [place] [phone] Scheduled Procedures Name Priority Associated Diagnoses Date/Ti [...] or Tdap) 10/14/2024 10/14/2014 Mammogram 02/02/2025 02/03/2024, 07/2023, 01/30/2022, Additional history exists HbA1c 02/26/2025 02/27/2024 [...] as of this encounter Visit Diagnoses Diagnosis Primary hypertension Unspecified essential hypertension documented in this encounter Advance Directives * [...] Advance Directives occurred with: Patient Care Teams Breakfast Supervisor Relationship Specialty Start Date End Date Sopiha Ramirez MD [address] [place] [address] [place] [address] PCP - General Family Medicine 03/31/24 documented as of this encounter
--- OUTSIDE RECORDS SUMMARY | 2024-08-04 02:24 | External Medical Summary | Summary of Care ---
Author Name Unknown Organization [facility] Address [address] [place] [address] Phone [phone] Care Team Providers Care Scaffolder Name Role Phone Deshawn Panda MD Primary Care Provide r Reason for Visit * Reason Comments eRx-Medication Refill Encounter Details Date Type Department Care Team (Late st Contact Info) Description 07/11/2024 Refill Family Medicine [address] [phone] Deshawn Panda MD [address] [place] [address] [place] [phone] Primary insomnia; Overactive bladder Allergies Active Allergy Reactions Criticality Noted Date Comments No Known Drug Allergy 06/24/2001 documented as of this encounter (statuses as of 07/13/2024) Medications Medication Sig Dispensed Refills Start Date [...] or Pain, Mild. 30 Tablet 05/25/2024 Active oxyCODONE HCl 5 MG Oral Tablet (Oxy IR) Take 1 Tablet by mouth every 6 hours as needed for Pain, Severe (Postop. May take 2 for severe pain if needed.). 30 Tablet 05/25/2024 Active Celecoxib 200 MG Oral Capsule (CeleBREX)Indicatio ns:DDD (degenerative disc disease), thoracolumbar Take 1 Capsule by mouth in the morning. 30 Capsule 1 06/08/2024 Active Propranolol HCl ER 60 MG Oral [...] THE MORNING 90 Capsule 2 07/13/2024 Active Nortriptyline HCl 50 MG Oral Capsule (Pamelor)Indication s:Primary insomnia TAKE ONE CAPSULE BY MOUTH BEFORE BED 90 Capsule 2 09/09/2023 4 Discontinued Tolterodine Tartrate ER 2 MG Oral Capsule Extended Release 24 Hour (Detrol LA)Indications:Over active bladder TAKE ONE CAPSULE BY MOUTH IN THE MORNING 90 Capsule 2 09/10/2023 4 Discontinued documented as of this encounter (statuses as of 07/13/2024) Active Problems Problem Noted Date Diagnosed Date [...] as of this encounter (statuses as of 07/13/2024) Resolved Problems Problem Noted Date Diagnosed Date Resolved Date IRON DEFIC ANEMIA 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 Major depressive disorder Overview: ICD-10 update of inactive term PLANTAR FIBROMATOSIS 013 BMI 33.0-33.9,adult 06/15/20 15 HTN, goal below 140/90 06/27 documented as of this encounter (statuses as of 07/13/2024) Immunizations Name Administration Dates Next Due COVID-19 [...] lent, No Preserve, IM 08/09/2017,02/18/2017,08/22/2015 Seasonal Influenza, Split, I IV3, With Preserve, Inj 10/14/2014 TDAP (age 10 and older)(Boostrix) 10/14/2014 [...] encounter Miscellaneous Notes * Telephone Encounter - Deshawn Panda MD - 07/13/2024 12:53 PM EDT Signed Prescriptions: Disp Refills Nortriptyline HCl 50 MG Oral Capsule (Sharon*90 Cap*3 Sig: TAKE ONE CAPSULE BY MOUTH BEFORE BED Authorizing Provider: DESHAWN PANDA Ordering User: JUSTIN CASTILLO Tolterodine Tartrate ER 2 MG Oral Capsule *90 Cap*2 Sig: TAKE ONE CAPSULE BY MOUTH IN THE MORNING Authorizing Provider: DESHAWN PANDA * [facility] 12:52 PM EDT Pending Prescriptions: Disp Refills Tolterodine Tartrate ER 2 MG Oral Capsule *90 Cap*2 Sig: TAKE ONE CAPSULE BY MOUTH IN THE MORNING Signed Prescriptions: Disp Refills Nortriptyline HCl 50 MG Oral Capsule (Sharon*90 Cap*3 Sig: TAKE ONE CAPSULE BY MOUTH BEFORE BED Authorizing Provider: DESHAWN PANDA Ordering User: JUSTIN CASTILLO < BR> * Telephone Encounter - Justin Castillo [facility] - 07/13/2024 12:52 PM EDT [facility] is currently not authorized to approve refills for the pended medication(s) per refill protocol. Please approve if appropriate. Thank you, Justin Castillo, PharmD Clinical Pharmacist [facility] ([facility]) [phone] 07/13/2024, 12:52 PM * Telephone Encounter - Justin Castillo [facility] - 07/13/2024 12:51 PM EDT Did you pend patient's preferred pharmacy and medication before forwarding?yes [facility] [address] [place] Pending Prescriptions: Disp Refills Tolterodine Tartrate ER 2 MG Oral Capsule*90 Cap*2 Sig: TAKE ONE CAPSULE BY MOUTH IN THE MORNING Signed Prescriptions: Disp Refills Nortriptyline HCl 50 MG Oral Capsule (Sharon*90 Cap*3 Sig: TAKE ONE CAPSULE BY MOUTH BEFORE BED Authorizing Provider: DESHAWN PANDA Ordering User: JUSTIN CASTILLO Last Visit: 07/01/2024 (in office), Visit date not found (telemedicine) Next Visit: 03/15/2025 If no future appointments scheduled, and last appointment is greater than a year ago, please schedule patient for a follow-up appointment Last date the medication was ordered: 09/10/2023 Is this request for a controlled substance?No Urine Drug Screen:No results found for this or any previous visit. Patient Phone Numbers Labs: Lab Results Component Value Date/Time CREAT 0.8 05/01/2024 02:01 PM CREAT 0.97 01/19/2022 12:00 AM CREAT 0.9 09/19/2020 02:17 PM POTASSIUM 3.8 05/01/2024 02:01 PM POTASSIUM 3.6 01/19/2022 12:00 AM POTASSIUM 4.2 09/19/2020 02:17 PM TSH 0.13 (L) 07/01/2024 11:30 AM TSH 0.25 (L) 04/22/2003 11:45 AM LDLCALC 76 01/01/2017 09:32 AM LDLDIRECT 42 03/10/2024 02:10 PM LDLDIRECT NOT APPLICABLE 01/01/2017 09:32 AM ALT 37 (H) 04/06/2024 01:28 PM ALT 32 03/04/2020 08:05 AM HGBA1C 6.4 (H) 02/27/2024 11:33 AM documented in this encounter Plan of Treatment Upcoming Encounters Date Type Department Care Team (Late st Contact Info) Description 07/14/2024 2:00 PM EDT Office Visit Neurosurgery, [place] [address] [facility] [place] [address] Richard Cazares MD [address] [place] [address] 08/06/2024 10:15 AM EDT Office Visit Orthopaedics [facility] [address] [place] [address] Trevor Palacio PA-C [address] [place] [address] 10/02/2024 11:30 AM EST Office Visit Endocrinology [place] [address] [place] [phone] Nikhil Cruz CRNP [address] [place] [facility] [place] [address] 02/04/2025 2:30 PM EDT Imaging Radiology [address] [place] [address] 03/15/2025 2:00 PM EDT Office Visit Family Medicine [address] [place] [phone] Deshawn Panda MD [address] [place] [address] [place] [address] Scheduled Procedures Name Priority Associated Diagnoses Date/Ti me COLONOSCOPY FLEXIBLE PROXIMA L DIAGNOSTIC Recall Special screening for malignant neoplasms, colon Health Maintenance Due Date Last Done Comments HPV/Co-Test 1990 Cologuard 2005 Fecal Occult Blood Test 2005 12/12/2001 Sigmoidoscopy 2005 Depression Screening 09/19/2021 09/19/2020 COVID-19 Vaccine (2022- season) 2023 03/14/2023, 04/03/2022, 03/21/2021, Additional history exists Cervical Cancer Screening 01/17/2024 Pap Smear 01/17/2024 01/17/2021, 11/26, 12/21/2015, Additional history exists Influenza Vaccine (FLU shot) (#1) 2024 10/01/2023, 08/22/2022, 09/21/2021, Additional history exists DTaP,Tdap,and Td Vaccines (2 - Td or Tdap) 10/14/2024 10/14/2014 Mammogram 02/02/2025 02/03/2024, 07/2023, 01/30/2022, Additional history exists HbA1c 02/26/2025 02/27/2024 GFR 05/01/2025 05/01/2024, 02/23, 01/19/2022, Additional history exists Albumin/Creatinine Ratio 10/01/2025 022, 09/21/2021, 09/19/2020, Additional history exists Lipid Panel 03/10/2029 03/10/2024, 02/23, 01/01/2017 Colonoscopy 05/03/2031 05/03/2021, 07/2021, 01/10/2016, Additional history exists Colorectal Cancer Screening [...] of this encounter Visit Diagnoses Diagnosis Primary insomnia Persistent disorder of initiating or maintaining sleep Overactive bladder Hypertonicity of bladder documented in this encounter Advance Directives * [...] Advance Directives occurred with: Patient Care Teams Scaffolder Relationship Specialty Start Date End Date Deshawn Panda MD [address] [place] [address] [place] [phone] PCP - General Family Medicine 03/31/24 documented as of this encounter
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
--- OUTSIDE RECORDS SUMMARY | 2024-08-04 02:24 | External Medical Summary | Summary of Care ---
Author Name Unknown Organization [facility] Address [address] [place] [address] Phone [phone] Care Team Providers Care Commercial Real Estate Manager Name Role Phone Sophia Ramirez MD Primary Care Provide r Reason for Visit * Reason Comments Outpatient Testing Encounter Details Date Type Department Care Team (Late st Contact Info) Description 07/01/2024 11:30 AM EDT Laboratory Laboratory [address] [place] [phone] [place] [address] Arrived Allergies Active Allergy Reactions Criticality Noted Date Comments No Known Drug Allergy 06/24/2001 documented as of this encounter (statuses as of 07/01/2024) Medications Medication Sig Dispensed Refills Start Date End Date Status Nortriptyline HCl 50 MG Oral Capsule (Pamelor)Indications:P [...] 05/21/2024 Active Gabapentin 300 MG Oral Capsule (Neurontin)Indications [...] 05/25/2024 Active Celecoxib 200 MG Oral Capsule (CeleBREX)Indications: DDD (degenerative disc disease), thoracolumbar Take 1 Capsule [...] AT BEDTIME 90 Tablet 3 07/01/2024 Active documented as of this encounter (statuses [...] No 05/11/2024 documented as of this encounter Plan of Treatment Upcoming Encounters Date Type Department Care Team (Late st Contact Info) Description 07/14/2024 2:00 PM EDT [facility] [place] [facility] [address] Richard Cazares MD [address] [facility] [place] [address] 08/06/2024 10:15 AM EDT Office Visit Orthopaedics [facility] [address] [place] [address] Trevor Palacio PA-C [address] [place] [address] 10/02/2024 11:30 AM EST Office Visit Endocrinology [facility] [place] [address] [place] [place] [phone] Nikhil Cruz CRNP [address] [place] [facility] [place] [address] 02/04/2025 2:30 PM EDT Imaging Radiology [address] [place] [address] 03/15/2025 2:00 PM EDT Office Visit Family Medicine [address] [place] [phone] Sophia Ramirez MD [address] [place] [address] [place] [address] Scheduled Procedures Name Priority Associated Diagnoses Date/Ti [...] Not on filedocumented as of this encounter Advance Directives * Full Code [...] Advance Directives occurred with: Patient Care Teams Commercial Real Estate Manager Relationship Specialty Start Date End Date Sophia Ramirez MD [address] [place] [address] [place] [phone] PCP - General Family Medicine 03/31/24 documented as of this encounter
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
--- OUTSIDE RECORDS SUMMARY | 2024-08-04 02:24 | External Medical Summary ---
Author Name Unknown Address Unknown Organization [id number]:LABORATORY [facility] - [address] [place] [address] Laboratory Report Ordering Provider Test Date Status AMARILYS HESS 07/01/2024 11:30:48 Padmini l Observation Date Value Abnormality Reference (Units ) Status T3, Free 07/01/2024 11:30:48 3.7 2.5-4.3 (p g/mL) Final Performing Location LABORATORY [facility] - [address] [place] [address]
--- OUTSIDE RECORDS SUMMARY | 2024-08-04 02:24 | External Medical Summary | Summary of Care ---
Author Name Unknown Organization [facility] Address [address] [place] [address] Phone [phone] Care Team Providers Care Publication Specialist Name Role Phone Sophia Panda MD Primary Care Provide r Reason for Visit * Reason Comments eRx-Medication Refill Encounter Details Date Type Department Care Team (Late st Contact Info) Description 06/11/2024 Refill Family Medicine [address] [phone] Gonzales Elizondo MD [address] [place] [address] [place] [address] Dyslipidemia, goal LDL below 100; Primary hypertension Allergies Active Allergy Reactions Criticality Noted Date Comments No Known Drug Allergy 06/24/2001 documented as of this encounter (statuses as of 06/12/2024) Medications Medication Sig Dispensed Refills Start Date End Date Status Nortriptyline HCl 50 MG Oral Capsule (Pamelor)Indication [...] 05/21/2024 Active Gabapentin 300 MG Oral Capsule (Neurontin)Indicati [...] the morning. 90 Capsule 3 06/10/2024 Active Rosuvastatin Calcium 10 MG Oral Tablet (Crestor)Indication s:Dyslipidemia, goal LDL below 100 TAKE ONE TABLET BY MOUTH AT BEDTIME 90 Tablet 3 06/12/2024 Active Lisinopril-hydroCHL OROthiazide 10-12.5 MG Oral TabletIndications:P rimary hypertension Take 1 Tablet by mouth in the morning. 90 Tablet 3 06/12/2024 Active Lisinopril-hydroCHL OROthiazide 10-12.5 MG Oral TabletIndications:P rimary hypertension Take 1 Tablet by mouth in the morning. 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 Major depressive disorder Overview: ICD-10 update of inactive term PLANTAR FIBROMATOSIS 013 BMI 33.0-33.9,adult 06/15/20 15 HTN, goal below 140/90 06/27 documented as of this encounter (statuses as of 06/12/2024) Immunizations Name Administration Dates Next Due COVID-19 [...] encounter Miscellaneous Notes * Telephone Encounter - Paula Herzog [facility] - 06/12/2024 5:49 AM EDTSigned Prescriptions: Disp Refills Rosuvastatin Calcium 10 MG Oral Tablet (Cr*90 Tab*3 Sig: TAKE ONE TABLET BY MOUTH AT BEDTIMEAuthorizing Provider: Adolfo PANDA User: PAULA HERZOG Lisinopril- hydroCHLOROthiazide 10-12.5 MG *90 Tab*3 Sig: Take 1 Tablet by mouth in the morning.Authorizing Provider: Adolfo PANDA User: PAULA HERZOG documented in this encounter Plan of Treatment Upcoming Encounters Date Type Department Care Team (Late st Contact Info) Description 07/01/2024 10:40 AM EDT Office Visit Family Medicine [address] [place] [phone] Sophia Padna MD [address] [place] [address] [place] [address] 07/13/2024 1:00 PM EDT Office Visit Endocrinology [address] [place] [phone] Nikhil Cruz CRNP [address] [place] [address] 07/14/2024 2:00 PM EDT Office Visit Neurosurgery, [place] [address] [place] [address] Richard Cazares MD [address] [place] [address] 08/06/2024 10:15 AM EDT Office Visit Orthopaedics [facility] [address] [place] [address] Trevor Palacio PA-C [address] [place] [address] 02/04/2025 2:30 PM EDT Imaging Radiology [address] [place] [address] Scheduled Procedures Name Priority Associated Diagnoses Date/Ti [...] or Tdap) 10/14/2024 10/14/2014 Mammogram 02/02/2025 02/03/2024, 03/0 07/2023, 01/30/2022, Additional history exists HbA1c 02/26/2025 [...] as of this encounter Visit Diagnoses Diagnosis Dyslipidemia, goal LDL below 100 Other and unspecified hyperlipidemia Primary hypertension Unspecified essential hypertension documented in [...] Advance Directives occurred with: Patient Care Teams Publication Specialist Relationship Specialty Start Date End Date Sophia Panda MD [address] [place] [address] [place] [address] PCP - General Family Medicine 03/31/24 documented as of this encounter
--- OUTSIDE RECORDS SUMMARY | 2024-08-04 02:24 | External Medical Summary | Summary of Care ---
Author Name Unknown Organization [facility] Address [address] [place] [address] Phone [phone] Care Team Providers Care Pool Installer Name Role Phone Sophia Ramirez MD Primary Care Provide r Encounter Details Date Type Department Care Team (Late st Contact Info) Description 07/14/2024 2:00 PM EDT Office Visit Neurosurgery, [place] [address] [place] [address] Richard Cazares MD [address] [place] [address] Myelopathy (HCC)* Allergies Active Allergy Reactions Criticality Noted Date Comments No Known Drug Allergy 06/24/2001 documented as of this encounter (statuses as of 07/15/2024) Medications Medication Sig Dispensed Refills Start Date [...] as of this encounter (statuses as of 07/15/2024) Active Problems Problem Noted Date Diagnosed Date [...] as of this encounter (statuses as of 07/15/2024) Resolved Problems Problem Noted Date Diagnosed Date Resolved Date IRON DEFIC ANEMIA 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 Major depressive disorder Overview: ICD-10 update of inactive term PLANTAR FIBROMATOSIS 013 BMI 33.0-33.9,adult 06/15/20 15 HTN, goal below 140/90 06/27 documented as of this encounter (statuses as of 07/15/2024) Immunizations Name Administration Dates Next Due COVID-19 [...] 2:15 PM EDT PRO[place] [address] Name: Cecilia Perla Date: 07/14/2024 Time: 2:15 PM 63-year-old [...] Depressive disorder, not elsewhere classified admitted at [facility] x 4 days in January 2001 Generalized [...] performed by Rosa Hall DO at END[facility]COPY [facility] COLONOSCOPY, DIAGNOSTIC (RECTUM) 05/03/2021 normal repeat 10 years, performed by Jam Jones MD at ENDOSCOPY [facility] CT CHEST WO CONTRAST 07/07/2017 6 mm [...] repeat 1 year MAMMOGRAM SCREENING-BILATERAL Bilateral 1988 [place] TENOTOMY PRQ ACHILLES TENDON SPX LOCAL ANES Right 01/26/2022 Dr Gage, debridement REMOVE ADDED SPINE LAMINA, 1 SEG N/A 05/11/2024 LAMINECTOMY FACETECTOMY AND FORAMINOTOMY ADDITIONAL LEVELS performed by Richard Cazares MD at [place] [facility] REMOVE LUMBAR SPINE LAMINA, 3+ SEGS N/A 05/11/2024 LAMINECTOMY DECOMPRESSION SPINAL CORD POSTERIOR LUMBAR performed by Richard Cazares MD at [place] [facility] REMOVE THORACIC SPINE LAMINA, 1 SEG N/A 05/11/2024 LAMINECTOMY FACETECTOMY AND FORAMINOTOMY POSTERIOR THORACIC performed by Richard Cazares MD at [facility] TENOTOMY ACHILLES TENDON, PERC; LOCAL ANESTHESIA Left [...] known drug allergy VITALS: LMP 09/25/2001 [facility] This document was dictated using voice recognition software. Please excuse any errors. documented in this encounter Plan of Treatment Upcoming Encounters Date Type Department Care Team (Late st Contact Info) Description 08/06/2024 10:15 AM EDT Office Visit [facility] [place] [address] Trevor Palacio PA-C [facility] [address] 10/02/2024 11:30 AM EST Office Visit Endocrinology [address] [place] [phone] Nikhil Cruz CRNP [address] [place] [address] 10/15/2024 11:00 AM EST Office Visit Neurosurgery, [place] [address] [facility] [place] [address] Richard Cazares MD [address] [place] [address] 02/04/2025 2:30 PM EDT Imaging Radiology [address] [place] [address] 03/15/2025 2:00 PM EDT Office Visit Family Medicine [address] [place] [phone] Sophia Ramirez MD [address] [place] [address] [place] [address] Scheduled Procedures Name Priority [...] Advance Directives occurred with: Patient Care Teams Pool Installer Relationship Specialty Start Date End Date Sophia Ramirez MD [address] [place] [address] [place] [address] PCP - General Family Medicine 03/31/24 documented as of this encounter
--- OUTSIDE RECORDS SUMMARY | 2024-08-04 02:24 | External Medical Summary | Summary of Care ---
Author Name Unknown Organization [facility] Address [address] [place] [address] Phone [phone] Care Team Providers Care Clinic Clerk Name Role Phone Sophia Ramirez MD Primary Care Provide r Reason for Visit * Reason Onset Date Comments Forms Request 06/25/2024 Juan C / [facility] [place] Plan of Care Encounter Details Date Type Department Care Team (Late st Contact Info) Description 06/25/2024 Telephone [facility] [place] [address] [place] [address] Specified, Harry No Resource [address] [place] [address] Forms Request (Octavio / [facility] ... Allergies Active Allergy Reactions Criticality Noted Date Comments No Known Drug Allergy 06/24/2001 documented as of this encounter (statuses as of 06/30/2024) Medications Medication Sig Dispensed Refills Start Date End Date Status Nortriptyline HCl 50 MG Oral Capsule (Pamelor)Indications: Primary insomnia TAKE ONE CAPSULE BY MOUTH BEFORE BED 90 Capsule 2 09/09/2023 Active Tolterodine Tartrate ER 2 MG Oral Capsule Extended Release 24 Hour (Detrol LA)Indications:Overac tive bladder TAKE ONE CAPSULE BY MOUTH IN [...] 05/21/2024 Active Gabapentin 300 MG Oral Capsule (Neurontin)Indication s:Chronic bilateral low back pain with left-sided sciatica [...] 05/25/2024 Active Celecoxib 200 MG Oral Capsule (CeleBREX)Indications :DDD (degenerative disc disease), thoracolumbar Take 1 Capsule by mouth in the morning. 30 Capsule 1 06/08/2024 Active Propranolol HCl ER 60 MG Oral Capsule Extended Release 24 Hour (Inderal LA)Indications:Primar y hypertension Take 1 Capsule by mouth in the morning. 90 Capsule 3 06/10/2024 Active Rosuvastatin Calcium 10 MG Oral Tablet (Crestor)Indications: Dyslipidemia, goal LDL below 100 TAKE ONE TABLET BY MOUTH AT BEDTIME 90 Tablet 3 06/12/2024 Active Lisinopril-hydroCHLOR Othiazide 10-12.5 MG Oral TabletIndications:Ilsa susan hypertension Take 1 Tablet by mouth in the morning. 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 Major depressive disorder Overview: ICD-10 update of inactive term PLANTAR FIBROMATOSIS 013 BMI 33.0-33.9,adult 06/15/20 15 HTN, goal below 140/90 06/27 documented as of this encounter (statuses as of 06/30/2024) Immunizations Name Administration Dates Next Due COVID-19 mRNA, LNP-s, No Pre serve, 2-Dose Series (Moderna) 03/21/2021,02/28/2021 COVID-19, LNP-s, No Preserve , Esvin-sucrose, Ages 12+ (Pfizer) 04/03/2022 Covid-19, Mrna, Lnp-s, Pf, B ivalent, 30 Mcg, IM, 12 yrs and above ([employer]) 03/14/2023 Seasonal Influenza, PF, 6 M & [...] encounter Miscellaneous Notes * Telephone Encounter - Glenna Galeana OSA - 06/30/2024 10:34 AM EDT [facility] Plan of Care signed and faxed to [phone] on 06.30.24. Scanned into patients chart. * Telephone Encounter - Glenna Galeana OSA - 06/25/2024 9:28 AM EDT Received [facility] Plan of Care from [facility] on 06.25.24. Placed in providers bin for signature. documented in this encounter Plan of Treatment Upcoming Encounters Date Type Department Care Team (Late st Contact Info) Description 07/01/2024 10:40 AM EDT Office Visit Family Medicine [address] [phone] Sophia Ramirez MD [address] [place] [address] [place] [address] 07/13/2024 1:00 PM EDT Office Visit Endocrinology [address] [place] [phone] Nikhil Cruz CRNP [address] [facility] [place] [address] 07/14/2024 2:00 PM EDT Office Visit Neurosurgery[place] [address] [place] [id number] Richard [facility]azares MD [address] [facility] [id number] 08/06/2024 10:15 AM EDT Office Visit Orthopaedics [address] [place] [address] Trevor Palacio PA-C [address] [place] [address] 02/04/2025 2:30 PM EDT Imaging Radiology [address] [place] [address] Scheduled Procedures Name Priority Associated Diagnoses Date/Ti [...] 03/10/2029 03/10/2024, 02/23, 01/01/2017 Colonoscopy 05/03/2031 05/03/2021, 06/07/2021, 01/10/2016, Additional history exists Colorectal Cancer Screening [...] Advance Directives occurred with: Patient Care Teams Clinic Clerk Relationship Specialty Start Date End Date Sophia Ramirez MD [address] [place] [address] [place] [address] PCP - General Family Medicine 03/31/24 documented as of this encounter
--- OUTSIDE RECORDS SUMMARY | 2024-08-04 02:24 | External Medical Summary ---
Author Name Unknown Address Unknown Organization K01:LABORATORY [facility] [place] - [address] [place] [address] Laboratory Report Ordering Provider Test Date Status JUSTINE HESSPETER 07/01/2024 11:30:48 Padmini l Observation Date Value Abnormality Reference (Units ) Status TSH 07/01/2024 11:30:48 0.13 Below low normal 0.2 7-4.20 (uIU/mL) Final Performing Location LABORATORY [facility] [place] - [address] [place] [address]
--- OUTSIDE RECORDS SUMMARY | 2024-08-04 02:24 | External Medical Summary | Summary of Care ---
Author Name Unknown Organization [facility] Address [address] [place] [address] Phone [phone] Care Team Providers Care Cookee Name Role Phone Sophia Ramirez MD Primary Care Provide r Reason for Visit * Reason Comments eRx-Medication Refill Encounter Details Date Type Department Care Team (Late st Contact Info) Description 07/01/2024 Refill Family Medicine [address] [phone] Gonzales Elizondo MD [address] [place] [address] [place] [address] Primary hypertension Allergies Active Allergy Reactions Criticality Noted Date Comments No Known Drug Allergy 06/24/2001 documented as of this encounter (statuses as of 07/02/2024) Medications Medication Sig Dispensed Refills Start Date [...] as of this encounter (statuses as of 07/02/2024) Active Problems Problem Noted Date Diagnosed Date [...] as of this encounter (statuses as of 07/02/2024) Resolved Problems Problem Noted Date Diagnosed Date Resolved Date IRON DEFIC ANEMIA 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 Major depressive disorder Overview: ICD-10 update of inactive term PLANTAR FIBROMATOSIS 013 BMI 33.0-33.9,adult 06/15/20 15 HTN, goal below 140/90 06/27 documented as of this encounter (statuses as of 07/02/2024) Immunizations Name Administration Dates Next Due COVID-19 [...] encounter Miscellaneous Notes * Telephone Encounter - Rajwinder Mera [facility] - 07/02/2024 10:05 AM EDTRefused Prescriptions: Disp Refills Lisinopril-hydroCHLOROthiazide 10-12.5 MG *90 Tab*2 Sig: Take 1Tablet by mouth in the morning.Refused By: RAJWINDER MERA for Refusal: Too soonReason for Refusal Comment: 90 day with 3 refills sent 06/12/24 documented in this encounter Plan of Treatment Upcoming Encounters Date Type Department Care Team (Late st Contact Info) Description 07/14/2024 2:00 PM EDT Office Visit Melanie Reed [address] [facility] [place] [address] Richard Cazares MD [address] [facility] [place] [address] 08/06/2024 10:15 AM EDT Office Visit Orthopaedics [facility] 132 [facility] [place] [address] Trevor Palacio PA-C 132 [facility] [place] [address] 10/02/2024 11:30 AM EST Office Visit Endocrinology [address] [place] [phone] Nikhil Cruz CRNP [address] [facility] [place] [address] 02/04/2025 2:30 PM EDT Imaging Radiology [address] [place] [address] 03/15/2025 2:00 PM EDT Office Visit Family Medicine [facility] [place] [place] [phone] Sophia Ramirez MD [address] [place] [address] [place] [address] Scheduled Procedures Name Priority Associated Diagnoses Date/Ti [...] 03/10/2029 03/10/2024, 02/23, 01/01/2017 Colonoscopy 05/03/2031 05/03/2021, 06/0 07/2021, 01/10/2016, Additional history exists Colorectal Cancer [...] Advance Directives occurred with: Patient Care Teams [place]e Relationship Specialty Start Date End Date Sophia Ramirez MD [address] [place] [address] [place] [address] PCP - General Family Medicine 03/31/24 documented as of this encounter
--- OUTSIDE RECORDS SUMMARY | 2024-08-04 02:24 | External Medical Summary | Summary of Care ---
Author Name Unknown Organization [facility] Address [address] [place] [address] Phone [phone] Care Team Providers Care Fur Comber Name Role Phone Sophia Ramirez MD Primary Care Provide r Reason for Visit * Reason Onset Date Comments Medication Problem 07/15/2024 Encounter Details Date Type Department Care Team (Late st Contact Info) Description 07/15/[address] [facility], [place] [address] [place] [address] Richard Cazares MD [address] [place] [address] Medication Problem Allergies Active Allergy Reactions Criticality Noted Date [...] or Pain, Mild. 30 Tablet 05/25/2024 Active Celecoxib 200 MG [...] for Pain, Severe. 20 Tablet 07/15/2024 Active documented as of this encounter (statuses [...] encounter Miscellaneous Notes * Telephone Encounter - Veronica Byers RN - 07/15/2024 9:34 AM EDT Called patient to relay that we have resubscribed the medications. * Telephone Encounter - Emelyn Rowley PHARM Tech - 07/15/2024 9:14 AM EDT Patient stating pharmacy did not get scripts from yesterday. Please re-send. Thank you, Emelyn Rowley Insulation Manager [facility] 07/15/2024,9:14 AM documented in this encounter Plan of Treatment Upcoming Encounters Date Type Department Care Team (Late st Contact Info) Description 08/06/2024 10:15 AM EDT Office Visit [facility] [place] [address] Trevor Palacio PA-C [address] [place] [address] 10/02/2024 11:30 AM EST Office Visit Endocrinology Melanie [address] [place] [address] Nikhil Cruz CRNP 100 [address] [facility] [place] [address] 10/15/2024 11:00 AM EST Office Visit NeurosurgeryMelanie 100 [address] [facility] [place] [address] Richard [facility]ares MD [facility] [place] [address] 02/04/2025 2:30 PM EDT Imaging Radiology [address] [place] [address] 03/15/2025 2:00 PM EDT Office Visit Family Medicine [address] [place] [phone] Sophia Ramirez MD [address] [place] [address] [place] [address] Scheduled Procedures Name Priority Associated Diagnoses Date/Ti [...] or Tdap) 10/14/2024 10/14/2014 Mammogram 02/02/2025 02/03/2024, /07/2023, 01/30/2022, Additional history exists HbA1c 02/26/2025 02/27/2024 GFR 05/01/2025 05/01/2024, 02/23, 01/19/2022, Additional history exists Albumin/Creatinine Ratio 10/01/2025 022, 09/21/2021, 09/19/2020, Additional history exists Lipid Panel 03/10/2029 03/10/2024, 02/23, 01/01/2017 Colonoscopy 05/03/2031 05/03/2021, /07/2021, 01/10/2016, Additional history exists Colorectal Cancer Screening [...] Advance Directives occurred with: Patient Care Teams Fur Comber Relationship Specialty Start Date End Date Sophia Ramirez MD [address] [place] [address] [place] [address] PCP - General Family Medicine 03/31/24 documented as of this encounter
--- OUTSIDE RECORDS SUMMARY | 2024-08-04 02:24 | External Medical Summary ---
Author Name Unknown Address Unknown Organization K01:[facility] - [address] [place] [address] Laboratory Report Ordering Provider Test Date Status DESHAWNAMARILYS 07/01/2024 11:30:48 Padmini l Observation Date Value Abnormality Reference (Units ) Status T4, Free 07/01/2024 11:30:48 1.0 0.9-1.7 (n g/dL) Final Performing Location [facility] - [address] [place] [address]
--- OUTSIDE RECORDS SUMMARY | 2024-08-04 02:24 | External Medical Summary | Summary of Care ---
Author Name Unknown Organization [facility] Address [address] [place] [address] Phone [phone] Care Team Providers Care Director Of Preclinical Research Name Role Phone Sophia Ramirez MD Primary Care Provide r Encounter Details Date Type Department Care Team (Late st Contact Info) Description 07/14/2024 2:00 PM EDT Office Visit Neurosurgery, [place] [address] [place] [address] Richard Cazares MD [address] [place] [address] Myelopathy (HCC)* Allergies Active Allergy [...] for Pain, Severe. 20 Tablet 07/15/2024 Active oxyCODONE HCl 5 MG Oral Tablet (Oxy IR) Take 1 Tablet by mouth every 6 hours as needed for Pain, Severe (Postop. May take 2 for severe pain if needed.). 30 Tablet 05/25/2024 4 Discontinued Acetaminophen-Codei ne 300-30 MG Oral Tablet Take 1 Tablet by mouth every 6 hours as needed for Pain, Mild. 40 Tablet 1 07/14/2024 4 Discontinued oxyCODONE HCl 5 MG Oral Tablet (Oxy IR) Take 1 Tablet by mouth every 4 hours as needed for Pain, Severe. 20 Tablet 07/14/2024 4 Discontinued documented as of this encounter [...] 30 Mcg, IM, 12 yrs and above ([employer]) 03/14/2023 Seasonal Influenza, PF, 6 M & [...] 2:15 PM EDT PROGRESS NOTE - Neurosurgery [facility] [place] [address] Name: Cecilia Perla Date: 07/14/2024 Time: 2:15 [...] Depressive disorder, not elsewhere classified admitted at [facility] x 4 days in January 2001 Generalized [...] performed by Rosa Hall DO at ENDOSCOPY [facility] COLONOSCOPY, DIAGNOSTIC (RECTUM) 05/03/2021 normal repeat 10 years, performed by Jam Jones MD at ENDOSCOPY [facility] CT CHEST WO CONTRAST 07/07/2017 6 [...] repeat 1 year MAMMOGRAM SCREENING-BILATERAL Bilateral 1988 [place] TENOTOMY PRQ ACHILLES TENDON SPX LOCAL ANES Right 01/26/2022 Dr Gage, debridement REMOVE ADDED SPINE LAMINA, 1 SEG N/A 05/11/2024 LAMINECTOMY FACETECTOMY AND FORAMINOTOMY ADDITIONAL LEVELS performed by Richard Cazares MD at OR [facility] REMOVE LUMBAR SPINE LAMINA, 3+ SEGS N/A 05/11/2024 LAMINECTOMY DECOMPRESSION SPINAL CORD POSTERIOR LUMBAR performed by Richard Cazares MD at [facility] REMOVE THORACIC SPINE LAMINA, 1 SEG N/A 05/11/2024 LAMINECTOMY FACETECTOMY AND FORAMINOTOMY POSTERIOR THORACIC performed by Richard Cazares MD at OR [facility] TENOTOMY ACHILLES TENDON, PERC; LOCAL ANESTHESIA Left [...] known drug allergy VITALS: LMP 09/25/2001 Richard Luna Neurosurgery This document was dictated using voice recognition software. Please excuse any errors. documented in this encounter Miscellaneous Notes * Addendum Note - Sanjiv Kelley PA-C - 07/15/2024 9:25 AM EDTAddended by: SANJIV KELLEY on: 07/15/2024 09:25 AM Modules accepted: Orders documented in this encounter Plan of Treatment Upcoming Encounters Date Type Department Care Team (Late st Contact Info) Description 08/06/2024 10:15 AM EDT Office Visit Orthopaedics [facility] [address] [place] [address] Trevor Palacio PA-C [address] [place] [address] 10/02/2024 11:30 AM EST Office Visit Endocrinology [address] [address] [place] [phone] Nikhil Cruz CRNP [address] [facility] [place] [address] 10/15/2024 11:00 AM EST Office Visit Neurosurgery, [place] [address] [facility] [place] [address] Richard Cazares MD [address] [facility] [place] [address] 02/04/2025 2:30 PM EDT Imaging Radiology [address] [place] [address] 03/15/2025 2:00 PM EDT Office Visit Family Medicine [address] [place] [phone] Sophia Ramirez MD [address] [place] [address] [place] [address] Scheduled Procedures Name Priority Associated Diagnoses Date/Ti [...] Advance Directives occurred with: Patient Care Teams Director Of Preclinical Research Relationship Specialty Start Date End Date Sophia Ramirez MD [address] [place] [address] [place] [address] PCP - General Family Medicine 03/31/24 documented as of this encounter
--- OUTSIDE RECORDS SUMMARY | 2024-08-04 02:24 | External Medical Summary | Summary of Care ---
Author Name Unknown Organization [facility] Address [address] [place] [address] Phone [phone] Care Team Providers Care Loan Supervisor Name Role Phone Sophia Ramirez MD Primary Care Provide r Reason for Visit * Reason Onset Date Comments Forms Request 06/25/2024 Debora / Thomas [place] Plan of Care Encounter Details Date Type Department Care Team (Late st Contact Info) Description 06/25/2024 Telephone [facility], [place] [address] [place] [address] Specified, Harry No Resource [address] [place] [address] Forms Request (Octavio / [facility] ... 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 Major depressive disorder Overview: ICD-10 update of inactive term PLANTAR FIBROMATOSIS 013 BMI 33.0-33.9,adult 06/15/20 15 HTN, goal below 140/90 06/27 documented as of this encounter (statuses as of 06/25/2024) Immunizations Name Administration Dates Next Due COVID-19 mRNA, LNP-s, No Pre serve, 2-Dose Series (Moderna) 03/21/2021,02/28/2021 COVID-19, LNP-s, No Preserve , Esvin-sucrose, Ages 12+ (Pfizer) 04/03/2022 Covid-19, Mrna, Lnp-s, Pf, B ivalent, 30 Mcg, IM, 12 yrs and above ([employer]) 03/14/2023 Seasonal Influenza, PF, 6 M & [...] OSA - 06/25/2024 9:28 AM EDT Received [facility] from [facility] on 06.25.24. Placed in providers bin for signature. documented in this encounter Plan of Treatment Upcoming Encounters Date Type Department Care Team (Late st Contact Info) Description 07/01/2024 10:40 AM EDT Office Visit Family Medicine [address] [place] [phone] Sophia Ramirez MD [address] [place] [address] [place] [address] 07/13/2024 1:00 PM EDT Office Visit Endocrinology [place] [address] [place] [phone] Nikhil Cruz CRNP [address] [place] [facility] [place] [address] 07/14/2024 2:00 PM EDT Office Visit Neurosurgery, [place] [address] [facility] [place] [phone] Richard Cazares MD [address] [place], [place] [phone] 08/06/2024 10:15 AM EDT Office Visit Orthopaedics [facility] [address] [place] [address] Trevor Palacio PA-C [address] [place] [address] 02/04/2025 2:30 PM EDT Imaging Radiology [address] [place] [address] Scheduled Procedures Name Priority Associated Diagnoses Date/Ti [...] Advance Directives occurred with: Patient Care Teams Loan Supervisor Relationship Specialty Start Date End Date Sophia Ramirez MD [address] [place] [address] [place] [address] PCP - General Family Medicine 03/31/24 documented as of this encounter
--- OUTSIDE RECORDS SUMMARY | 2024-08-04 02:24 | External Medical Summary | Summary of Care ---
Author Name Unknown Organization [facility] Address [address] [place] [address] Phone [phone] Care Team Providers Care Flag Football Coach Name Role Phone Sophia Ramirez MD Primary Care Provide r Reason for Visit * Reason Comments eRx-Medication Refill Encounter Details Date Type Department Care Team (Late st Contact Info) Description 07/06/2024 Refill Family Medicine [address] [phone] Gonzales Elizondo MD [address] [place] [address] [place] [address] Primary hypertension Allergies Active Allergy Reactions Criticality Noted Date Comments No Known Drug Allergy 06/24/2001 documented as of this encounter (statuses as of 07/08/2024) Medications Medication Sig Dispensed Refills Start Date [...] as of this encounter (statuses as of 07/08/2024) Active Problems Problem Noted Date Diagnosed Date [...] as of this encounter (statuses as of 07/08/2024) Resolved Problems Problem Noted Date Diagnosed Date Resolved Date IRON DEFIC ANEMIA 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 Major depressive disorder Overview: ICD-10 update of inactive term PLANTAR FIBROMATOSIS 013 BMI 33.0-33.9,adult 06/15/20 15 HTN, goal below 140/90 06/27 documented as of this encounter (statuses as of 07/08/2024) Immunizations Name Administration Dates Next Due COVID-19 [...] encounter Miscellaneous Notes * Telephone Encounter - Tayla Reddy [facility] - 07/08/2024 7:14 AM EDTRefused Prescriptions: Disp Refills Lisinopril-hydroCHLOROthiazide 10-12.5 MG *90 Tab*2 Sig: Take 1Tablet by mouth in the morning.Refused By: TAYLA REDDYeason for Refusal: Too soonReason for Refusal Comment: sent 06/12 90 with 3 refills documented in this encounter Plan of Treatment Upcoming Encounters Date Type Department Care Team (Late st Contact Info) Description 07/14/2024 2:00 PM EDT Office Visit Melanie Reed [address] [facility] [place] [address] Richard Cazares MD [address] [facility] [place] [address] 08/06/2024 10:15 AM EDT Office Visit Orthopaedics [facility] 132 [facility] [place] [address] Trevor Palacio PA-C [facility] [place] [address] 10/02/2024 11:30 AM EST Office Visit Endocrinology Melanie [address] [place] [phone] Nikhil Cruz CRNP [address] [facility] [place] [address] 02/04/2025 2:30 PM EDT Imaging Radiology [address] [place] [address] 03/15/2025 2:00 PM EDT Office Visit Family Medicine [address] [place] [phone] Sophia Ramirez MD [address] [place] [address] [place] [address] Scheduled Procedures Name Priority Associated Diagnoses Date/Ti [...] Advance Directives occurred with: Patient Care Teams Flag Football Coach Relationship Specialty Start Date End Date Sophia Ramirez MD [address] [place] [address] [place] [address] PCP - General Family Medicine 03/31/24 documented as of this encounter
--- OUTSIDE RECORDS SUMMARY | 2024-08-04 02:24 | External Medical Summary | Summary of Care ---
Author Name Unknown Organization [facility] Address [address] [place] [address] Phone [phone] Care Team Providers Care Mobile Development Manager Name Role Phone Sophia Ramirez MD Primary Care Provide r Reason for Visit * Reason Onset Date Comments Medication Refill 07/10/2024 Encounter Details Date Type Department Care Team (Late st Contact Info) Description 07/10/2024 Refill [facility] [address] [place], [place] [phone] Lily Olea PA-C [address] [place] [address] Allergies Active Allergy Reactions Criticality Noted Date Comments No Known Drug Allergy 06/24/2001 documented as of this encounter (statuses as of 07/10/2024) Medications Medication Sig Dispensed Refills Start Date [...] 05/12/2024 Active Gabapentin 300 MG Oral Capsule (Neurontin)Indicatio [...] for Muscle spasms. 30 Tablet 07/10/2024 Active Cyclobenzaprine HCl 10 MG Oral Tablet (Flexeril) Take 1 Tablet by mouth 3 times a day as needed for Muscle spasms. 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 Major depressive disorder Overview: ICD-10 update of inactive term PLANTAR FIBROMATOSIS 013 BMI 33.0-33.9,adult 06/15/20 15 HTN, goal below 140/90 06/27 documented as of this encounter (statuses as of 07/10/2024) Immunizations Name Administration Dates Next Due COVID-19 mRNA, LNP-s, No Pre serve, 2-Dose Series (Moderna) 03/21/2021,02/28/2021 COVID-19, LNP-s, No Preserve , Esvin-sucrose, Ages 12+ (Pfizer) 04/03/2022 Covid-19, Mrna, Lnp-s, Pf, B ivalent, 30 Mcg, IM, 12 yrs and above ([employer]) 03/14/2023 Seasonal Influenza, PF, 6 M & [...] encounter Miscellaneous Notes * Telephone Encounter - Lily Olea PA-C - 07/10/2024 2:10 PM EDT Signed Prescriptions: Disp Refills Cyclobenzaprine HCl 10 MG Oral Tablet (Fle*30 Tab*0 Sig: Take 1 Tablet by mouth 3 times a day as needed for Muscle spasms. Authorizing Provider: LILY OLEA * Telephone Encounter - Luli Baron CPhT - 07/10/2024 1:52 PM EDT Patient is up to date for office visits. Pending Prescriptions: Disp Refills Cyclobenzaprine HCl 10 MG Oral Tablet (Fl*30 Tab*0 Sig: Take 1 Tablet by mouth 3 times a day as needed for Muscle spasms. Last Visit: 05/25/2024 (in office), Visit date not found (telemedicine) Next Visit: 07/14/2024 If no future appointments scheduled, and last appointment is greater than a year ago, please schedule patient for a follow-up appointment Last date the medication was ordered: 05/21/24 Pharmacy: [facility], [facility] [place] Is this request for a controlled substance?No it is not controlled. Urine Drug Screen:No results found for this [...] EDT Office Visit [facility] [place] [facility] [place] [address] Richard Cazares MD [address] [place] [address] 08/06/2024 10:15 AM EDT Office Visit [facility]opaed[facility] [place] [address] Trevor Palacio PA-C [address] [place] [address] 10/02/2024 11:30 AM EST Office Visit Endocrinology [address] [place] [phone] Nikhil Cruz CRNP [address] [facility] [place] [address] 02/04/2025 2:30 PM EDT Imaging Radiology [address] [place] [address] 03/15/2025 2:00 PM EDT Office Visit Family Medicine [address] [place] [phone] Sophia Ramirez MD [address] [place] [address] [place] [phone] Scheduled Procedures Name Priority Associated Diagnoses Date/Ti [...] Advance Directives occurred with: Patient Care Teams Mobile Development Manager Relationship Specialty Start Date End Date Sophia Ramirez MD [address] [place] [address] [place] [address] PCP - General Family Medicine 03/31/24 documented as of this encounter
--- OUTSIDE RECORDS SUMMARY | 2024-08-04 02:25 | External Medical Summary ---
Author Name Unknown Address Unknown Organization K01:[facility] [address] [facility] [address] Laboratory Report Ordering Provider Test Date Status ELYSSA OSBORNE 05/11/2024 08:55:33 Final Observation Date Value Abnormality Reference (Units ) Status Body temperature 05/11/2024 08:55:33 37.0 (C) Final pH of Arterial blood 05/11/2024 08:55:33 7.390 7.350-7.450 (units) Final Carbon dioxide [Partial pressure] in Arterial blood 05/11/2024 08:55:33 41.9 35.0-45.0 (mmHg) Final Oxygen [Partial pressure] in Arterial blood 05/11/2024 08:55:33 183.0 Above high normal 75.0-100.0 (mmHg) Final Base excess, Arterial 05/11/2024 08:55:33 0.4 -2.0-2.0 (mmol/L) Final Hemoglobin [Mass/volume] in Blood by Oximetry 05/11/2024 08:55:33 11.6 Below low normal 12.0-15.3 (g/dL) Final Oxyhemoglobin, Arterial (FO2HB) 05/11/2024 08:55:33 97.1 94.0-99.0 (% total Hgb) Final Carboxyhemoglobin 05/11/2024 08:55:33 1.4 <=1.5 (% total Hgb) Final Smokers: 0-9.0 % Methemoglobin 05/11/2024 08:55:33 1.0 <=1.5 (% total Hgb) Final Deoxyhemoglobin/Hemog lobin.total in Arterial blood 05/11/2024 08:55:33 0.5 0.0-5.0 (% total Hgb) Final Oxygen content in Arterial blood 05/11/2024 08:55:33 16.3 15.0-24.0 (%vol) Final Potassium, Whole Blood 05/11/2024 08:55:33 3.8 3.5-5.1 (mmol/L) Final Sodium, Whole Blood 05/11/2024 08:55:33 137 135-146 (mmol/L) Final Chloride, Whole Blood 05/11/2024 08:55:33 106 98-107 (mmol/L) Final Calcium.ionized [Moles/volume] in Blood by Ion-selective membrane electrode (ISE) 05/11/2024 08:55:33 1.12 Below low normal 1.13-1.32 (mmol/L) Final Anion gap, Whole Blood 05/11/2024 08:55:33 6.4 Below low normal 7.0-15.0 (mmol/L) Final Glucose, whole blood 05/11/2024 08:55:33 146 Above high normal 70-120 (mg/dL) Final Oxygen/Total gas setting [Volume Fraction] Ventilator 05/11/2024 08:55:33 Not Provided (%) Final O2 FLOW, ARTERIAL - [facility] 05/11/2024 08:55:33 Not Provided (L/min) Final Bicarbonate, Venous, POC (i-STAT) 05/11/2024 08:55:33 24.8 23.0-31.0 (mmol/L) Final Performing Location [facility] [address] [facility] [address]
--- OUTSIDE RECORDS SUMMARY | 2024-08-04 02:25 | External Medical Summary | Summary of Care ---
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 Professionals, attendants, caregivers or family members are allowable visitors for patients with intellectual, developmental or cognitive disabilities, communication barriers or behavioral concerns. Because patients' and families' needs vary, they will be taken into account when applying visitation restrictions. [facility]: Contact # [phone] Directions to Surgical Suite in from the [facility] Entrance The Surgical Waiting Room can be found in the Lobby of [email or web address] through [facility] and the Waiting Room is directly in front of you. Proceed to check in and give them your name. Directions to Surgical Suite from the East Entrance Enter the East entrance and follow the hallway to the J elevator. Take the J elevator up to Level 1. Continue down the long hallway to the main [facility]. The Surgical Waiting Room will be on your Right. Proceed to check in and give them your Name. Directions to Surgical Suite from the Parking Garage Enter the [facility] lobby and proceed down the comer to the left. At the end of the comer, turn right. Continue down the long hallway to the main [facility]. The Surgical Waiting Room will be on your Right. Proceed to check in and give them your Name. THANK YOU FOR CHOOSING [facility]! documented in this encounter OR Notes * OR Surgeon - Richard Cazares MD - 05/11/2024 10:37 AM EDT Date: 11 May 2024 Patient: Cecilia Perla : 1960 Surgeon: Richard Cazares Fulfillment Associate: Naldo Tomlinson Pre-op diagnosis: Thoracic myelopathy Post-op diagnosis: same Procedure performed: 1) laminectomy, thoracic 11 and thoracic 12 2) Partial laminectomy, lumbar 1 3) medial facetectomies bilaterally, thoracic 11-12, thoracic 12-lumbar 1 4) Left lumbar 1 transpedicular diskectomy at T12-L1 5) use of ultrasonography Anesthesia: General endotracheal Blood loss: 75 cc Fluids: 1200 cc crystalloid colloid: None Urine: 200 mL Specimens: None Drains: COLLEEN x1 Complications: None immediately apparent Condition: Stable to recovery Details: Cecilia is a 63 yo F well known to me. I am following her for Thoracic myelopathy. She has cervicalspondylosis but this is not symptomatic right now. Small midthoracic disc herniation abutting the ventral cord but I do not think it was actively compressed and I think this is likely asymptomatic. The obvious area of compression is across the thoracolumbar junction. No true weakness on exam but much proprioceptive dysfunction and ataxia. She has transitional lumbosacral anatomy and I did counselthe possibility of wrong level surgery. Plan for T11, T12, L1 laminectomy, possible diskectomy, possible extension is indicated. We will use ultrasound to guide. I once again did update the risks benefits alternatives to and techniques of surgery. Specific risks include but are not limited to: pain, scarring, bleeding, surgical site hematoma, remote hematoma, need for transfusion of blood products, surgical site infection, other infection including but not limited to urinary tract infection or pneumonia, cerebrospinal fluid leak, neurologic deficit including new or worsened numbness/weakness/pain, wrong level surgery, failure to ameliorate symptoms, recurrence of symptoms, need for further operations or procedures, ischemic optic neuropathy, vascular injury, thromboembolic events including deep vein thrombosis and pulmonary embolus, myocardial infarction, stroke, coma, and . Given the thoracic location and transitional anatomy I once again did crisis intervention counselor her on the possibility of wrong level surgery. I also did crisis intervention counselor her on the potential for iatrogenic instability and need for further surgery in the future although there was no instability demonstrated on dynamic imaging, there fore I do not think a fusion is the best course at this time. Final I did crisis intervention counselor her that given the natural history of myelopathy as possible she does not experience relief although this should prevent further deterioration. An additionally there is a risk of neurologic deficit at surgery itself. She voices understanding requests to proceed. All questions answered. I discussed the scenario preoperatively with anesthesia, including the clinical myelopathy, need for arterial line placement, and maintenance of blood pressure at 85, as well as the potential difficulty with localization in the thoracic spine. After obtaining informed consent, the patient was takento the operating room, and general anesthesia was induced. IV access was obtained by Anesthesia, and SCDs were placed. An A-line was placed. A Yee was in place. The patient was flipped prone onto aWilson frame, and all pressure points were carefully padded. The patient's back was clipped and prepped sterilely. Using fluoroscopy I did identify the transitional lumbosacral anatomy and I did based on this count identify the pedicles of T11, T12, and L1. A timeout was performed identifying the correct patient, procedures, site, and side. The patient was administered a dosage of inappropriate antibiotic, with plan to continue Antibiotics for 24 hours post procedure. Using a 10. Blade scalpel, an incision was made on roughly the T11-L1 vertebral bodies. The cutaneous tissues were dissected using monopolar cautery. The fascia was opened bilaterally using monopolar cautery, and the paraspinal musculature was dissected from the spinous processes andlamina of the T11, T12 , and L1 vertebra, being careful not to violate the facet joints. I did count multiple times using fluoroscopy, including the position of the vertebra from the sacrum, as well as the ribs, to confirm levels. I placed a spinal needle at L3 in order to facilitate counting. The lamina and spinous processes of T11, T12 , and L1 were exposed, levels were confirmed, and a self-retaining retractor was placed. Next, using Amadeo rongeurs, John bone cutters, a drill, and Kerrison rongeurs, a complete laminectomy was performed at T11 and T12, with a partial superior laminectomy performed at L1. I did further perform medial facetectomies bilaterally at T11-12 and T12-L1. Theovergrown ligamentum flavum was resected using Kerrison rongeurs. At this point the extent of the spinal cord and conus was visualized. I did use an ultrasound. I noticed the disc herniation eccentric to the left side at T12-L1. In order to access the disc, I enlarged the medial facetectomy to the level of the L1 pedicle on the left side. I took down the medial border of the L1 pedicle. Using this partial transpedicular approach, I was then able to access the epidural space and very gently retract the thecal sac a few mm. I was able to visualize the T12-L1 disc herniation lying underneath. Using a bipolar, I carefully coagulated the epidural veins. Next using a knife, I incised the annulus and resected a significant portion of the disc herniation as far as I can reach towards the midline.I then did use a Kerrison rongeur to resect the overgrown annulus. After the completion of this I was quite happy with the extent of decompression. I ultrasounded once again an and I felt that the neural elements looked to be adequately decompressed and were pulsatile. I did obtain final lateral x-rays to confirm that the correct levels had been operated on. Next the wound was copiously irrigatedwith antibiotic irrigation. I did ensure hemostasis. I did have anesthesia perform a Valsalva maneuver and I did not notice any leakage of CSF. I then placed 1 subfascial COLLEEN drain in the wound. The wound was closed in layers. I used interrupted inverted 0 Vicryl sutures to close the muscle and fascia, followed by 2 0 Vicryl for the subcutaneous tissues and dermis. [place] were used to reapproximate the skin. Nylon sutures were used to suture the drains in place. A sterile dressing was next applied. At the end of the procedure all counts were correct. The patient was transported in stable condition to the recovery area. No complications were immediately apparent. Richard Luna Neurosurgery documented in this encounter Miscellaneous Notes * Ancillary Progress Note - Claritza Lara RN - 05/12/2024 1:27 PM EDT CARE MANAGEMENT - ADULT DISCHARGE NOTE [address] [address] Name: Cecilia Perla [place] [facility] [place] [id number] Date: 05/12/2024 Time: 1:27 PM The following coordination of care and discharge plan has been coordinated with the care team, patient, family and/or caregiver according to the patients needs and preferences. Discharge Final Discharge Plan (Complete only at time of Discharge): Home - Self Care (05/12/24 1300) Narrative: Patient to discharge home with no additional needs. * Progress Notes - Post-Op Global - Juventino Zamora MD - 05/12/2024 8:01 AM EDT NEUROLOGICAL SURGERY PROGRESS NOTE [address] [address] Name: Cecilia Perla [facility] Date: 05/12/2024 Time: 8:01 AM Hospital day number: 1 SUBJECTIVE: NAEO OBJECTIVE: Most recent vital signs: BP: 130 mmHg/73 mmHg (05/12/24599) Pulse: 99 (05/12/24599) Resp: 18 (05/12/24599) Temp: 36.61 C (05/12/24599) Temp Summary: Temp Min: 36.3 C (97.3 F) Max: 37 C (98.6 F) SpO2: 96 % (05/12/24599) O2 flow rate: 0 L/MIN (05/12/24599) Supplemental O2 Delivery: Room Air, None (05/12/24599) Vital signs over last 24 hours: Systolic BP: Most Recent Systolic BP Av mmHg Min: 92 mmHg Max: 130 mmHg Temperature: Most Recent Temperature Av.6 C Min: 36.28 C Max: 37 C Pulse: Pulse Avg: Pulse Av.3 Min: 83 Max: 102 Respirations: Resp Av.7 Min: 11 Max: 25 SpO2: SpO2 Av.2 % Min: 90 % Max: 100 % SpO2: SpO2 Av.2 % Min: 90 % Max: 100 % FiO2%: No data recorded ICP: No data found.CPP (adult): No data found.Intake Vent Settings: Input/Output: (last 24 hours) Intake/Output Summary (Last 24 hours) at 05/12/2024 0801 Last data filed at 05/12/2024 0540 Gross per 24 hour Intake 2180 ml Output 300 ml Net 1880 ml Wound care: Surgical Site: clean, dry, intact Drains: COLLEEN x1 Physical exam: Alert, oriented Comfortable Waking up from anesthesia Follows commands in all 4 extremities with full strength. Gross sensation intact. Labs: Reviewed Imaging studies: My interpretation of: No new images Problem list: Patient Active Problem List Diagnosis Allergic rhinitis due to allergen GENERAL OSTEOARTHROSIS BMI 35.0-35.9,adult Overactive bladder Lichen sclerosus Primary hypertension Post concussion syndrome Incidental pulmonary nodule, > 3mm and < 8mm Prediabetes Chronic bilateral low back pain with left-sided sciatica Mixed hyperlipidemia Insomnia CLINICAL HISTORY AND PLAN: 63 year old female patient with spondylotic myelopathy now status post T11-L1 laminotomies and T12/L1 left transpedicular discetomy by Dr Cazares on 05/11/2024. Med surg admission Neuro checks and vitals q4 hr HOB as tolerated Normotension Pain control with multimodal regimen Continue perioperative antibiotics as ordered Maintenance fluids until adequate p.o. intake COLLEEN drain; monitor output Bowel regimen with senna/colace Antiemetics PRN Advance diet as tolerated Incentive spirometer q1h Continue home meds VTE ppx with SCDs, TEDs, lovenox OOB as tolerated PT/OT Likely dc today Case discussed with Dr. Cazares. Associated attestation - Richard Cazares MD - 05/12/2024 8:41 AM EDT I saw and evaluated the patient today. I have reviewed the resident/fellow physician note and agree. Patient looking well this morning. She was ambulated and voided. Overall she has a legs feel significantly better after surgery and she feels more stable on her feet. Plan for PT/OT heparin today. Potential discharge this afternoon versus 1st thing tomorrow. Keep drain for now the output is minimal and bloody. All questions answered. Richard Cazares [facility] Neurosurgery This document was dictated using voice recognition software. Please excuse any errors. * Care Plan - Trish Little RN - 05/12/2024 4:48 AM EDT Problem: Pain & Impaired Comfort Goal: Patient's pain & discomfort is manageable. Outcome: Progressing Problem: Safety & Risk for Injury Goal: Patient will remain free from injury. Outcome: Progressing Problem: Daily Care & Potential Self-Care Deficit Goal: Patient's daily care needs are met. Outcome: Progressing Problem: Risk for Impaired Physical Mobility Goal: Patient will maintain optimal mobility level. Outcome: Progressing Problem: Knowledge Deficit Goal: Patient & caregiver will demonstrate understanding. Outcome: Progressing Problem: Discharge Barriers Goal: Patient's discharge needs are met. Outcome: Progressing Problem: Actual & Potential for Impaired Skin Integrity Goal: Patient will maintain skin integrity. Outcome: Progressing Goal: Patient will maintain adequate nutritional intake. Outcome: Progressing Problem: Actual & Potential for Falls Goal: Patient will remain free of falls. Outcome: Progressing Clinical Goal(s): Pt will be free from falls/ injuries on this shift (05/11/24 9318) Possible barriers to meeting goal(s)/advancing plan of care: Recent surgery, new environment Stability of the patient: Moderately stable - low risk of patient condition declining or worsening Summary regarding today's goal(s): Met: no falls recorded on this shift Recommendations: maintain fall measures * Respiratory Progress Note - Evaristo Lynn RRT - 05/11/2024 9:43 PM EDT PATIENT DRIVEN PROTOCOL - Respiratory Care Services [address] [address] Name: Cecilia Perla [place] [facility] [id number] Date: 05/11/2024 Time: 9:44 PM Patient Driven Protocol Summary: Initial evaluation performed. This Treatment Plan and medications will be reviewed by the Primary Care Team for any contraindications. Respiratory Care Treatment Plan Pulmonary Volume Expansion Therapy: Deep Breathing/Cough PRN to enhance mobilization of secretions and prevent or treat alveolar consolidation and atelectasis. . The patient will be re-evaluated: No re-evaluation needed. Indications for treatment met. The Triage Level is: (Assessment Score = 0 - 5) Level 5. Triage Level Definitions: Level 1 Severe Respiratory/Airway Compromise Level 2 Moderate Respiratory/Airway Compromise or high risk for pulmonary complications Level 3 Mild Respiratory/Airway Compromise or moderate risk for pulmonary complications Level 4 Episodic Respiratory/Airway Compromise or low risk for pulmonary complications Level 5 No Respiratory/Airway Compromise Triage 1 Triage 2 Triage 3 Triage 4 Triage 5 greater than 20 16 - 20 11 - 15 6 - 10 0 - 5 Medical Record Assessment Clinical Findings Pulmonary Status: 0 - No History Surgical Status: 1 - General Surgery Chest X-Ray: 0 - Not Performed or performed greater than 3 days ago Assessment Score: 1 Patient Assessment Clinical Findings Respiratory Pattern: 0 - RR 12 - 20; Patient only gets breathless with strenuous exercise. Breath Sounds: 0 - Clear to auscultation Cough Effectiveness: 0 - Strong non-productive Sputum Production: 0 - No sputum production Level of Activity: 1 - Ambulatory with assist O2 needed to keep SpO2 greater than or equal to 92%: 0 - Room Air Assessment Score: 1 Total Assessment Score: 2 Breath Sounds: Inspiratory and expiratory clear bilaterally.. Cough and Sputum: An effective cough produced no sputum... CXR: n/a. Vital Signs: Resp: 18 (05/11/242123) Pulse: 102 (05/11/242123) Temp: 36.6 C (97.9 F) (05/11/242126) BP: 118/67 (05/11/242123) SpO2: 93 % (05/11/242123) Primary Service: Neurosurgery. Admitting Diagnosis: Osteoarthritis of thoracic spine with myelopathy [M47.14] Spinal stenosis [M48.00] Pulmonary Diagnosis: none. Prescriptions/Home Medications/Durable Medical Equipment: Prior to Admission medications Medication Sig Last Dose Discont. methIMAzole 5 MG Oral Tablet (Tapazole) Take 1 Tablet by mouth in the morning. 05/11/2024 Gabapentin 300 MG Oral Capsule (Neurontin) Take 1 Capsule by mouth in the morning and 1 Capsule before bedtime. 05/11/2024 Rosuvastatin Calcium 10 MG Oral Tablet (Crestor) take one pill by mouth at bedtime 05/10/2024 Tolterodine Tartrate ER 2 MG Oral Capsule Extended Release 24 Hour (Detrol LA) TAKE ONE CAPSULE BY MOUTH IN THE MORNING 05/11/2024 Lisinopril-hydroCHLOROthiazide 10-12.5 MG Oral Tablet Take 1 Tablet by mouth in the morning. 05/11/2024 Nortriptyline HCl 50 MG Oral Capsule (Pamelor) TAKE ONE CAPSULE BY MOUTH BEFORE BED 05/10/2024 Propranolol HCl ER 60 MG Oral Capsule Extended Release 24 Hour (Inderal LA) Take 1 Capsule by mouthin the morning. 05/11/2024 . * Progress Notes - Post-Op [place] - Richard Cazares MD - 05/11/2024 4:56 PM EDT Patient looking very good this afternoon. She says her legs already feel much better after surgery.Strength is full. Incisional pain under good control. Drain scant bloody output. Continue current management. Pain control. Antibiotics. Drain. Tomorrow plan for PT/OT, heparin, progress towards discharge. She would multiple family members at bedside today. All questions answered. Richard Cazares [facility] Neurosurgery This document was dictated using voice recognition software. Please excuse any errors. * Progress Notes - Post-Op Naldo Clayton MD - 05/11/2024 11:12 AM EDT NEUROLOGICAL SURGERY PROGRESS NOTE [address] [address] Name: Cecilia Perla Location: [facility]OR Date: 05/11/2024 Time: 11:12 AM Hospital day number: 0 SUBJECTIVE: No immediate post op issues OBJECTIVE: Most recent vital signs: BP: 96 mmHg/51 mmHg (05/11/24 1100) Pulse: 89 (05/11/24 1100) Resp: 16 (05/11/24 1100) Temp: 36.39 C (05/11/24 1100) Temp Summary: Temp Min: 36.4 C (97.5 F) Max: 37.1 C (98.8 F) SpO2: 100 % (05/11/24 1100) O2 flow rate: Supplemental O2 Delivery: Room Air, None (05/11/24 0604) Vital signs over last 24 hours: Systolic BP: Most Recent Systolic BP Av mmHg Min: 96 mmHg Max: 130 mmHg Temperature: Most Recent Temperature Av.8 C Min: 36.39 C Max: 37.11 C Pulse: Pulse Avg: Pulse Av Min: 89 Max: 91 Respirations: Resp Av.5 Min: 16 Max: 17 SpO2: SpO2 Av.5 % Min: 97 % Max: 100 % SpO2: SpO2 Av.5 % Min: 97 % Max: 100 % FiO2%: No data recorded ICP: No data found.CPP (adult): No data found.Intake Vent Settings: Input/Output: (last 24 hours) Intake/Output Summary (Last 24 hours) at 05/11/2024 1112 Last data filed at 05/11/2024 1055 Gross per 24 hour Intake 1600 ml Output 250 ml Net 1350 ml Wound care: Surgical Site: clean, dry, intact Drains: COLLEEN x1 Physical exam: Alert, oriented Comfortable Waking up from anesthesia Follows commands in all 4 extremities with full strength. Gross sensation intact. Labs: Reviewed Imaging studies: My interpretation of: No new images Problem list: Patient Active Problem List Diagnosis Allergic rhinitis due to allergen GENERAL OSTEOARTHROSIS BMI 35.0-35.9,adult Overactive bladder Lichen sclerosus Primary hypertension Post concussion syndrome Incidental pulmonary nodule, > 3mm and < 8mm Prediabetes Chronic bilateral low back pain with left-sided sciatica Mixed hyperlipidemia Insomnia CLINICAL HISTORY AND PLAN: 63 year old female patient with spondylotic myelopathy now status post T11-L1 laminotomies and T12/L1 left transpedicular discetomy by Dr Cazares on 05/11/2024. Med surg admission Neuro checks and vitals q4 hr HOB as tolerated Normotension Pain control with multimodal regimen Continue perioperative antibiotics as ordered Maintenance fluids until adequate p.o. intake COLLEEN drain; monitor output Bowel regimen with senna/colace Antiemetics PRN Advance diet as tolerated Incentive spirometer q1h Continue home meds VTE ppx with SCDs, TEDs, lovenox tomorrow OOB as tolerated PT/OT Case discussed with Dr. Cazares. Naldo Tomlinson MD Resident Neurological Surgery Associated attestation - Richard Cazares MD - 05/11/2024 12:20 PM EDT I saw and evaluated the patient today. I have reviewed the resident/fellow physician note and agree. I saw the patient in the recovery area. Still emerging from anesthesia but overall looking well. Moving lower extremities with good strength. No new obvious neurologic deficit. Continue current management. Antibiotics, drain, PT and OT, heparin tomorrow. Anticipate 1-2 days in the hospital. I did keep her family appraised. All questions answered. Richard Cazares [facility] Neurosurgery This document was dictated using voice recognition software. Please excuse any errors. documented in this encounter Plan of Treatment Upcoming Encounters Date Type Department Care Team (Late st Contact Info) Description 05/13/2024 8:30 AM EDT Scheduled Telephone Neurosurgery, Melanie [address] [place] [address] Melanie, Nurse Follow Up Phone Call Neurosurg [address] [place] [address] 05/25/2024 10:30 AM EDT Office Visit Neurosurgery, [facility] [address] [place] [address] Richard Cazares MD [address] [place] [address] 07/01/2024 10:40 AM EDT Office Visit Family [address] [place] [address] Sophia Ramirez MD [address] [place] [address] [place] [address] 07/13/2024 1:00 PM EDT Office Visit Endocrinology [address] [place] [address] Nikhil Cruz CRNP [address] [facility] [place] [address] 08/06/2024 10:15 AM EDT Office Visit Orthopaedics [facility] [address] [place] [address] Trevor Palacio PA-C [address] [place] [address] 02/04/2025 2:30 PM EDT Imaging Radiology [address] [place] [address] Scheduled Procedures Name Priority Associated Diagnoses Date/Ti [...] 01/17/2024 01/17/2021, 11/26, 12/21/2015, Additional history exists DTaP,Tdap,and Td Vaccines (2 [...] Discontinued 05/03/2021, 05/03/2021, 01/10/2016, Additional history exists Influenza Vaccine (FLU shot) Completed 10/01/2023, 08/22/2022, 09/21/2021, Additional history exists GARDASIL-HPV IMMUNIZATION SERIES Aged Out No longer eligible based on patient's age to complete this topic Hepatitis B Aged Out No longer eligi ble based on patient's age to complete this [...] Not on filedocumented as of this encounter Procedures Procedure Name Priority Date/Time Associated Diagnosis Comments HC ECG TRACING ONLY STAT 05/11/2024 1 0:48 AM EDT Chest pain XR INTRA-OP C-ARM CASE Routine 05/11/2024 10:15 AM EDT WHOLE BLOOD PROFILE, ARTERIAL STAT 05/11/2024 8:55 AM EDT REMOVE ADDED SPINE LAMINA, 1 SEG 05/11/2024 7:10 AM EDT Osteoarthritis of thoracic spine with myelopathy REMOVE LUMBAR SPINE LAMINA, 3+ SEGS 05/11/2024 7:10 AM EDT Osteoarthritis of thoracic spine with myelopathy REMOVE THORACIC SPINE LAMINA, 1 SEG 05/11/2024 7:10 AM EDT Osteoarthritis of thoracic spine with myelopathy GLUCOSE METER, POINT OF CARE Routine 05/11/2024 7:03 AM EDT STAPH AUREUS PCR Routine 05/11/2024 7:02 AM EDT ABO/RH STAT 05/11/2024 7:02 AM EDT TYPE AND SCREEN STAT 05/11/2024 7:02 AM EDT documented in this encounter Results * EKG (05/11/2024 10:48 AM EDT) 05/11/2024 10:4 8 AM EDT Narrative Procedure Note Carlos Bosch MD - 05/11/2024 10:48 AM EDT REASON FOR STUDY: CHEST PAIN CONCLUSIONS: Normal sinus rhythm Low voltage QRS, consider pulmonary disease, pericardial effusion, ornormal variant Nonspecific ST abnormality Prolonged QT interval or tu fusion, consider myocardial disease,electrolyte imbalance, or drug effects When compared with ECG of 01-May-2024 13:46, QT has lengthened Ventricular Rate: 84 Atrial Rate: 84 AK Interval: 188 QRS Duration: 84 QT/QTc: 436/515 ms P-R-T [place]: 58 : 26 : 69 degrees Francois Castrejon MD EKG [facility] CARDIOLOGY * XR INTRA-OP C-ARM CASE (05/11/2024 10:15 AM EDT) Narrative Scheduling, Silent - 05/11/2024 10:16 AM EDT This procedure will not be read by a Radiologist. Please see operative note. Naldo Tomlinson MD RADIOLOGY (RAD GEN ERAL) * (ABNORMAL) WHOLE BLOOD PROFILE, ARTERIAL (05/11/2024 8:55 AM EDT) Temperature 37.0 C 05/11/2024 9:18 AM EDT [facility] pH, Arterial 7.390 7.350 - 7.450 units 05/11/2024 9:18 AM EDT [facility] pCO2, Arterial 41.9 35.0 - 45.0 mmHg 05/11/2024 9:18 AM EDT LABORATORY C pO2, Arterial 183.0(H) 75.0 - 100.0 mmHg 05/11/2024 9:18 AM EDT [facility] Base Excess, Arterial 0.4 -2.0 - 2.0 mmol/L 05/11/2024 9:18 AM EDT [facility] HGB 11.6(L) 12.0 - 15.3 g/dL 05/11/2024 9:18 AM EDT [facility] Oxyhemoglobin, Arterial 97.1 94.0 - 99.0 % total Hgb 05/11/2024 9:18 AM EDT [facility] Carboxyhemoglob in, Whole Blood 1.4 <=1.5 % total Hgb 05/11/2024 9:18 AM EDT [facility] Comment:Smokers: 0-9.0 % Methemoglobin, Whole Blood 1.0 <=1.5 % total Hgb 05/11/2024 9:18 AM EDT [facility] Reduced Hemoglobin, Arterial 0.5 0.0 - 5.0 % total Hgb 05/11/2024 9:18 AM EDT [facility] O2 Content, Arterial 16.3 15.0 - 24.0 %vol 05/11/2024 9:18 AM EDT [facility] Potassium, Whole Blood 3.8 3.5 - 5.1 mmol/L 05/11/2024 9:18 AM EDT LAB[facility] C Sodium, Whole Blood 137 135 - 146 mmol/L 05/11/2024 9:18 AM EDT LABOR[facility] C Chloride, Whole Blood 106 98 - 107 mmol/L 05/11/2024 9:18 AM EDT [facility] Calcium, Ionized, Whole Blood 1.12(L) 1.13 - 1.32 mmol/L 05/11/2024 9:18 AM EDT LABORATORY C Anion Gap, Whole Blood 6.4(L) 7.0 - 15.0 mmol/L 05/11/2024 9:18 AM EDT LABORATORY C Glucose, Whole Blood 146(H) 70 - 120 mg/dL 05/11/2024 9:18 AM EDT LABOR[facility]ORY C FiO2 Not Provided % 05/11/2024 9:18 AM EDT [facility] O2 Flow, Arterial Not Provided L/min 05/11/2024 9:18 AM EDT [facility] Bicarbonate, Whole Blood 24.8 23.0 - 31.0 mmol/L 05/11/2024 9:18 AM EDT [facility] Blood Arterial blood specimen / Unknown 05/11/2024 8:55 AM EDT 05/11/2024 9:13 AM EDT Evaristo Lr CRNA LAB BLOOD ORDERABLES Performing Organization Address City/[facility]/ZIP Co de Phone Number [facility] [address] [place] [address] * GLUCOSE METER, POINT OF CARE (05/11/2024 7:03 AM EDT) Glucose Meter 102 70 - 120 mg/dL 05/11/2024 7:22 AM EDT [facility] Blood 05/11/2024 7:03 AM EDT 05/11/2024 7:22 AM EDT Naldo Tomlinson MD LAB POINT OF CARE TEST DOCKED DEVICE UNSOLICITED RESULTS Performing Organization Address [facility] Co de Phone Number [facility] [address] [place] [address] * ABO/RH (05/11/2024 7:02 AM EDT) ABO O 05/11/2024 8:21 AM EDT [facility] Rh Positive 05/11/2024 8:21 AM EDT [facility] Blood Venous blood specimen / Unknown Venipuncture / Unknown 05/11/2024 7:02 AM EDT 05/11/2024 7:08 AM EDT Naldo Tomlinson MD LAB BLOOD BANK RIC T ORDERABLES Performing Organization Address City/[facility]/ZIP Co de Phone Number [facility] [address] [place] [address] * TYPE AND SCREEN (05/11/2024 7:02 AM EDT) ABO O 05/11/2024 8:02 AM EDT [facility] Rh Positive 05/11/2024 8:02 AM EDT [facility] Red Blood Cell Antibody Screen Negative 05/11/2024 8:02 AM EDT [facility] Specimen Expiration Date 05/14/2024 23:59 05/11/2024 8:02 AM EDT [facility] Blood Venous blood specimen / Unknown Venipuncture / Unknown 05/11/2024 7:02 AM EDT 05/11/2024 7:08 AM EDT Naldo Tomlinson MD LAB BLOOD BANK RIC T ORDERABLES Performing Organization Address [facility] Co de Phone Number [facility] [address] [place] [address] * STAPH AUREUS PCR (05/11/2024 7:02 AM EDT) Pathologist [facility] MRSA PCR Result Negative Negative 8:57 AM EDT [facility] Comment:No Methicillin resis tant Staphylococcus aureus detected by PCR (amplified probe). Staphylococcus aureus PCR Result Negative Negative 05/11/2024 8:57 AM EDT [facility] Comment:No Staphylococcus au reus detected by PCR (amplified probe). Upper Respiratory Swab of internal nose / Unknown Non-blood Collection / Unknown 05/11/2024 7:02 AM EDT 05/11/2024 7:43 AM EDT Naldo Tomlinson MD LAB MICRO - GENERA L ORDERABLES Performing Organization Address City/[facility]/ZIP Co de Phone Number [facility] [address] [place] [address] documented in this encounter Visit Diagnoses Diagnosis Myelopathy (HCC)- Primary Unspecified disease of spinal cord Spinal stenosis Spinal stenosis, unspecified region other than cervical Chest pain Chest pain, unspecified DDD (degenerative disc disease), thoracolumbar Degeneration of thoracic or thoracolumbar intervertebral disc documented in this encounter Administered Medications Inactive Administered Medications - up to 3 most recent administrations Medication Order MAR Action Action Date Dose Rate Site Acetaminophen (Tylenol) tab 975 mg 975 mg, Oral, PREOP, First dose on Sat05/11/24 at 0715, Last dose on Sat05/11/24 at 0715, For 1 dose, Maximum 4 g acetaminophen/day. Avoid in patients with severe hepatic impairment or severe active liver disease. Administer 60 minutes prior to OR. , Pre-Op Given 05/11/2024 7:16 AM EDT 975 mg Acetaminophen (Tylenol) tab 975 mg 975 mg, Oral, QID(AM/NOON/PM/HS), First dose on Sat05/11/24 at 1200, Last dose on Sat05/16/24 at 0600, For 5 days, Maximum of 4 grams (4000 mg) per day., Post-op Given 05/12/2024 11:57 AM EDT 975 mg Given 05/12/2024 5:20 AM EDT 975 mg Given 05/11/2024 10:12 PM EDT 975 mg ceFAZolin in dextrose (Ancef) ivpb 2 g 2 g, IV Piggyback, Q8H, 2 doses, First dose on Sat05/11/24 at 1400, Last dose on Sat05/11/24 at 2200, Post-op New Bag 05/11/2024 10:23 PM EDT 2 g 100 mL/hr New Bag 05/11/2024 1:27 PM EDT 2 g 100 mL/hr celecoxib (CeleBREX) cap 200 mg 200 mg, Oral, Daily(AM), First dose on Sat05/12/24 at 0800, Last dose on Sat05/14/24 at 0900, For 3 days, POD #1, Post-op Given 05/12/2024 8:58 AM EDT 200 mg celecoxib (CeleBREX) cap 400 mg 400 mg, Oral, PREOP, First dose on Sat05/11/24 at 0715, Last dose on Sat05/11/24 at 0715, For 1 dose, Contraindicated in setting of CABG surgery. Do not use in patients with CrCl < 60, receiving ketorolac, bone fracture. Reduce to 200 mg PO if greater than 65 years old . Administer 60 minutes prior to OR. , Pre-Op Given 05/11/2024 7:17 AM EDT 400 mg chlorhexidine gluconate cloth 2 % pad 1 Pad 1 Pad, External, PREOP, First dose on Sat05/11/24 at 0715, Last dose on Sat05/11/24 at 0715, For 1 dose, Cleanse surgical site area before transferring intraop, Pre-Op Given 05/11/2024 7:31 AM EDT 1 Pad cyclobenzaprine (Flexeril) tab 10 mg 10 mg, Oral, TID PRN Muscle spasms, Starting on Sat05/11/24 at 1110, Until Sat05/12/24 at 2109, Post-op Given 05/11/2024 8:28 PM EDT 10 mg Docusate Sodium (Colace) cap 100 mg 100 mg, Oral, BID (.AM/PM), First dose on Sat05/11/24 at 2100, Until Discontinued, For oral administration ONLY, if route of administration is other than oral and alternative product must be ordered., Post-op Given 05/12/2024 8:5 8 AM EDT 100 mg Given 05/11/2024 8:28 PM EDT 100 mg Enoxaparin (Lovenox) inj 30 mg 30 mg, Subcutaneous, Q12H, First dose on Sat05/12/24 at 0900, Until Discontinued, If patient is on warfarin, inform provider if daily INR value is 2 or greater!, Post-op Given 05/12/2024 8:59 AM EDT 30 mg Abdomen Left Lower Gabapentin (Neurontin) cap 300 mg 300 mg, Oral, BID (.AM/PM), First dose on Sat05/11/24 at 2100, Until Discontinued Given 05/12/2024 8:59 AM EDT 300 mg Given 05/11/2024 8:28 PM EDT 300 mg hydroCHLOROthiazide cap 12.5 mg 12.5 mg, Oral, Daily(AM), First dose on Sat05/12/24 at 0900, Until Discontinued, Component of lisinopril-HCTZ formulation Given 05/12/2024 8:58 AM EDT 12. 5 mg HYDROmorphone (Dilaudid) inj 0.25 mg 0.25 mg, IV Push, Q15 MIN PRN Pain, Severe, Pain, Moderate, Starting on Sat05/11/24 at 0845, Until Sat05/11/24 at 1229, For 4 doses, Administer only postop in PACU. Hold for respiratory rate less than 12. Administer up to a total of 1 mg., PACU Given 05/11/2024 11:48 AM EDT 0.2 5 mg Given 05/11/2024 11:34 AM EDT 0.25 mg isolyte-S pH 7.4 infusion Intravenous, at 75 mL/hr, Plasma-LYTE 148, isolyte-S, and isolyte-S pH 7.4 are considered equivalent - including for MAR barcode scanning., CONTINUOUS, Starting on Sat05/11/24 at 0715, Until Sat05/12/24 at 0714, Pre-Op New Bag 05/11/2024 7:12 AM EDT 75 mL/hr Lisinopril (Prinivil) tab 10 mg 10 mg, Oral, Daily(AM), First dose on Sat05/12/24 at 0900, Until Discontinued, Component of lisinopril-HCTZ formulation Given 05/12/2024 8:59 AM EDT 10 mg methIMAzole (Tapazole) tab 5 mg 5 mg, Oral, Daily(AM), First dose on Sat05/12/24 at 0900, Until Discontinued Given 05/12/2024 8:59 AM EDT 5 mg ondansetron (Zofran) inj 4 mg 4 mg, IV Push, Q6H PRN Other, May use for nausea or vomiting if patient unable to take oral ondansetron, Starting on Sat05/11/24 at 1110, Until Sat05/12/24 at 210, Post-op ondansetron ODT (Zofran) tab 4 mg 4 mg, On Tongue, Q6H PRN Nausea, Vomiting, Starting on Sat05/11/24 at 1110, Until Sat05/12/24 at 210, Post-op oxyCODONE (Oxy IR) tab 10 mg 10 mg, Oral, Q4H PRN Pain, Severe, Starting on Sat05/11/24 at 1109, Until Sat05/12/24 at 2109, Hold for somnolence or respiratory rate less than 10, Post-op oxyCODONE (Oxy IR) tab 5 mg 5 mg, Oral, Q4H PRN Pain, Moderate, Starting on Sat05/11/24 at 1109, Until Sat05/12/24 at 2109, Hold for somnolence or respiratory rate less than 10, Post-op Povidone-Iodine nasal swab 4 Swab 4 Swab, Nasal, PREOP, First dose on Sat05/11/24 at 0715, Last dose on Sat05/11/24 at 0715, For 1 dose, Tilt the bottle slightly, dip one swab into solution and stir vigorously for 10 seconds. Withdraw the swab slowly to avoid wiping solution off during removal. Insert swab comfortably into one nostril and rotate for 15 seconds, covering all surfaces. Then focus on the inside tip of nostril and rotate for an additional 15 seconds. Using a new swab, Repeat above steps in the other nostril (Swab 2). Repeat the application in both nostrils using a fresh swab each times (Swab 3 and 4)., Pre-Op Given 05/11/2024 7:30 AM EDT 1 Swab Pregabalin (Lyrica) cap 150 mg 150 mg, Oral, PREOP, First dose on Sat05/11/24 at 0715, Last dose on Sat05/11/24 at 0715, For 1 dose, Reduce dose as below for CrCl Level: CrCl less than 30 ml/min = 50 mg preop CrCl 30 - 60 ml/min = 150 mg preop CrCl greater than 60 ml/min = 300 mg preop Do not use with gabapentin. Administer 60 minutes prior to OR., Pre-Op Given 05/11/2024 7:17 AM EDT 150 mg prochlorperazine (Compazine) inj 10 mg 10 mg, IV Push, Q6H PRN Nausea, Vomiting, Starting on Sat05/11/24 at 1110, Until Sat05/12/24 at 2109, Use as second line therapy if nausea and/or vomiting unrelieved with ondansetron. May use if patient unable to take oral prochlorperazine., Post-op prochlorperazine (Compazine) tab 10 mg 10 mg, Oral, Q6H PRN Nausea, Vomiting, Starting on Sat05/11/24 at 1110, Until Sat05/12/24 at 2109, Use as second line therapy if nausea and/or vomiting unrelieved with ondansetron., Post-op Propranolol ER (Inderal LA) cap 60 mg 60 mg, Oral, Daily(AM), First dose on Sat05/12/24 at 0900, Until Discontinued, Hold for HR less than 60 or SBP below 100 and notify service if dose is held Given 05/12/2024 8:59 AM EDT 60 mg rosuvastatin (Crestor) tab 10 mg 10 mg, Oral, Q1700, First dose on Sat05/11/24 at 1700, Until Discontinued Given 05/11/2024 6:13 PM EDT 10 mg senna (Senokot) 2 Tablet 2 Tablet, Oral, Daily(AM), First dose on Sat05/11/24 at 1145, Until Discontinued, hold if patient have loose stool or frequent bowel movements, Post-op Given 05/12/2024 8:58 AM EDT 2 Tablets sodium chloride 0.9 % flush peripheral ariana 3 mL 3 mL, IV Push, QSHIFT, First dose on Sat05/11/24 at 0800, Until Discontinued, Do not flush if lock, PICC, or central line not in place; IV infusing or unable to flush., Pre-Op Given 05/12/2024 8:00 AM EDT 3 mL Given 05/12/2024 12:00 AM EDT 3 mL Given 05/11/2024 8:00 AM EDT 3 mL tolterodine LA ER (Detrol LA) cap 2 mg 2 mg, Oral, Daily(AM), First dose on Sat05/12/24 at 0900, Until Discontinued, This med should NOT be Crushed or Chewed Given 05/12/2024 9:01 AM EDT 2 mg traMADol ER (Ultram ER) tab 200 mg 200 mg, Oral, PREOP, First dose on Sat05/11/24 at 0715, Last dose on Sat05/11/24 at 0715, For 1 dose, Administer 60 minutes prior to OR , Pre-Op Given 05/11/2024 7:17 AM EDT 200 mg traMADol ER (Ultram ER) tab 200 mg 200 mg, Oral, ONCE, On Sat05/12/24 at 0800, For 1 dose, POD #1, Post-op Given 05/12/2024 8:58 AM EDT 200 mg vancomycin (Vancocin) 1,500 mg in NSS 250 mL ivpb 1,500 mg, IV Piggyback, ONCE, 1 dose, On Sat05/11/24 at 0715 New Bag 05/11/2024 7:07 AM EDT 1,500 mg 18 0 mL/hr documented in this encounter Active and Recently Administered Medications Times are shown in EDT. Scheduled Medication Order 05/10/2024 05/11/2024 05/12/2024 Acetaminophen (Tylenol) tab 975 mg (COMPLETED) 975 mg, Oral, PREOP, First dose on Sat05/11/24 at 0715, Last dose on Sat05/11/24 at 0715, For 1 dose, Maximum 4 g acetaminophen/day. Avoid in patients with severe hepatic impairment or severe active liver disease. Administer 60 minutes prior to OR. , Pre-Op 0716 (Given - Provider: Lety Wood RN) Acetaminophen (Tylenol) tab 975 mg 975 mg, Oral, QID(AM/NOON/PM/HS), First dose on Sat05/11/24 at 1200, Last dose on Sat05/16/24 at 0600, For 5 days, Maximum of 4 grams (4000 mg) per day., Post-op 1327 (Given - Provider: Katty Fernandez RN)1813 (Given - Provider: Ibis Alexander RN)2212 (Given - Provider: Trish Little RN) 0520 (Given - Provider: Trish Little RN)1157 (Given - Provider: Giselle Wells LPN) ceFAZolin in dextrose (Ancef) ivpb 2 g (COMPLETED) 2 g, IV Piggyback, PREOP, 1 dose, First dose on Sat05/11/24 at 0715, Administer 60 minutes prior to skin incision, Pre-Op 0840 (Given - Provider: DENIS Terrell) ceFAZolin in dextrose (Ancef) ivpb 2 g (COMPLETED) 2 g, IV Piggyback, Q8H, 2 doses, First dose on Sat05/11/24 at 1400, Last dose on Sat05/11/24 at 2200, Post-op 1327 (New Bag - Provider: Katty Fernandez RN)2223 (New Bag - Provider: Trish Little RN)2253 (Stopped - Provider: Trish Little RN) celecoxib (CeleBREX) cap 200 mg 200 mg, Oral, Daily(AM), First dose on Sat05/12/24 at 0800, Last dose on Sat05/14/24 at 0900, For 3 days, POD #1, Post-op 0858 (Given - Provid er: Giselle Wells LPN) celecoxib (CeleBREX) cap 400 mg (COMPLETED) 400 mg, Oral, PREOP, First dose on Sat05/11/24 at 0715, Last dose on Sat05/11/24 at 0715, For 1 dose, Contraindicated in setting of CABG surgery. Do not use in patients with CrCl < 60, receiving ketorolac, bone fracture. Reduce to 200 mg PO if greater than 65 years old . Administer 60 minutes prior to OR. , Pre-Op 716 (Given - Provider: Lety Wood RN) chlorhexidine gluconate cloth 2 % pad 1 Pad (COMPLETED) 1 Pad, External, PREOP, First dose on Sat05/11/24 at 0715, Last dose on Sat05/11/24 at 0715, For 1 dose, Cleanse surgical site area before transferring intraop, Pre-Op 730 (Given - Provider: Lety Wood RN) Docusate Sodium (Colace) cap 100 mg 100 mg, Oral, BID (.AM/PM), First dose on Sat05/11/24 at 2100, Until Discontinued, For oral administration ONLY, if route of administration is other than oral and alternative product must be ordered., Post-op 2027 (Given - Provider: Ibis Alexander RN) 58 (Given - Provider: Giselle Wells LPN) Enoxaparin (Lovenox) inj 30 mg 30 mg, Subcutaneous, Q12H, First dose on Sat05/12/24 at 0900, Until Discontinued, If patient is on warfarin, inform provider if daily INR value is 2 or greater!, Post-op 0859 (Given - Provid er: Giselle Wells LPN) Gabapentin (Neurontin) cap 300 mg 300 mg, Oral, BID (.AM/PM), First dose on Sat05/11/24 at 2100, Until Discontinued 2027 (Given - Provider: Ibis Alexander RN) 0859 (Given - Provider: Giselle Wells LPN) hydroCHLOROthiazide cap 12.5 mg 12.5 mg, Oral, Daily(AM), First dose on Sat05/12/24 at 0900, Until Discontinued, Component of lisinopril-HCTZ formulation 0858 (Given - Provid er: Giselle Wells LPN) Lisinopril (Prinivil) tab 10 mg 10 mg, Oral, Daily(AM), First dose on Sat05/12/24 at 0900, Until Discontinued, Component of lisinopril-HCTZ formulation 0859 (Given - Provid er: Giselle Wells LPN) methIMAzole (Tapazole) tab 5 mg 5 mg, Oral, Daily(AM), First dose on Sat05/12/24 at 0900, Until Discontinued 858 (Given - Provid er: Giselle Wells LPN) nortriptyline (Pamelor) cap 50 mg 50 mg, Oral, QHS, First dose on Sat05/12/24 at 2200, Until Discontinued Povidone-Iodine nasal swab 4 Swab (COMPLETED) 4 Swab, Nasal, PREOP, First dose on Sat05/11/24 at 0715, Last dose on Sat05/11/24 at 0715, For 1 dose, Tilt the bottle slightly, dip one swab into solution and stir vigorously for 10 seconds. Withdraw the swab slowly to avoid wiping solution off during removal. Insert swab comfortably into one nostril and rotate for 15 seconds, covering all surfaces. Then focus on the inside tip of nostril and rotate for an additional 15 seconds. Using a new swab, Repeat above steps in the other nostril (Swab 2). Repeat the application in both nostrils using a fresh swab each times (Swab 3 and 4)., Pre-Op 0730 (Given - Provider: Lety Wood RN) Pregabalin (Lyrica) cap 150 mg (COMPLETED) 150 mg, Oral, PREOP, First dose on Sat05/11/24 at 0715, Last dose on Sat05/11/24 at 0715, For 1 dose, Reduce dose as below for CrCl Level: CrCl less than 30 ml/min = 50 mg preop CrCl 30 - 60 ml/min = 150 mg preop CrCl greater than 60 ml/min = 300 mg preop Do not use with gabapentin. Administer 60 minutes prior to OR., Pre-Op 0717 (Given - Provider: Lety Wood RN) Propranolol ER (Inderal LA) cap 60 mg 60 mg, Oral, Daily(AM), First dose on Sat05/12/24 at 0900, Until Discontinued, Hold for HR less than 60 or SBP below 100 and notify service if dose is held 0859 (Given - Provid er: Giselle Wells LPN) rosuvastatin (Crestor) tab 10 mg 10 mg, Oral, Q1700, First dose on Sat05/11/24 at 1700, Until Discontinued 1813 (Given - Provider: Ibis Alexander RN) 1700 (Due) senna (Senokot) 2 Tablet 2 Tablet, Oral, Daily(AM), First dose on Sat05/11/24 at 1145, Until Discontinued, hold if patient have loose stool or frequent bowel movements, Post-op 1145 (OR/Procedure - Provider: Katty Fernandez RN) 0858 (Given - Provider: Giselle Wells LPN) sodium chloride 0.9 % flush peripheral ariana 3 mL 3 mL, IV Push, QSHIFT, First dose on Sat05/11/24 at 0800, Until Discontinued, Do not flush if lock, PICC, or central line not in place; IV infusing or unable to flush., Pre-Op 0800 (Given - Provider: Katty Fernandez RN)1600 (Not Given - Provider: Ibis Alexander RN - Reason: Parameter(s) Not Met) 0000 (Given - Provider: Trish Little RN)0800 (Given - Provider: Giselle Wells LPN)1539 (Not Given - Provider: Giselle Wells LPN - Reason: Parameter(s) Not Met - Comment: no PIV) tolterodine LA ER (Detrol LA) cap 2 mg 2 mg, Oral, Daily(AM), First dose on Sat05/12/24 at 0900, Until Discontinued, This med should NOT be Crushed or Chewed 0901 (Given - Provid er: Giselle Wells LPN) traMADol ER (Ultram ER) tab 200 mg (COMPLETED) 200 mg, Oral, PREOP, First dose on Sat05/11/24 at 0715, Last dose on Sat05/11/24 at 0715, For 1 dose, Administer 60 minutes prior to OR , Pre-Op 0717 (Given - Provider: Lety Wood RN) traMADol ER (Ultram ER) tab 200 mg (COMPLETED) 200 mg, Oral, ONCE, On Sat05/12/24 at 0800, For 1 dose, POD #1, Post-op 0858 (Given - Provid er: Giselle Wells LPN) vancomycin (Vancocin) 1,500 mg in NSS 250 mL ivpb (COMPLETED) 1,500 mg, IV Piggyback, ONCE, 1 dose, On Sat05/11/24 at 0715 0707 (New Bag - Provider: Lety Wood RN) Continuous Medication Order 05/10/2024 05/11/2024 05/12/2024 isolyte-S pH 7.4 infusion Intravenous, at 75 mL/hr, Plasma-LYTE 148, isolyte-S, and isolyte-S pH 7.4 are considered equivalent - including for MAR barcode scanning., CONTINUOUS, Starting on Sat05/11/24 at 0715, Until Sat05/12/24 at 0714, Pre-Op 0712 (New Bag - Provider: Charles Wood RN) PRN Medication Order 05/10/2024 05/11/2024 05/12/2024 BUPivacaine-EPINEPHrine (Sensorcaine W/ Epi) 0.5%-1:037136 inj (CANCELED) ONCE PRN INTRA PROCEDURE, Starting on Sat05/11/24 at 0746, Until Sat05/11/24 at 1057, Intra-Op 0746 (Given - Provider: Jerrell Cazares MD) cyclobenzaprine (Flexeril) tab 10 mg 10 mg, Oral, TID PRN Muscle spasms, Starting on Sat05/11/24 at 1110, Until Sat05/12/24 at 2109, Post-op 2027 (Given - Provider: Ibis Alexander RN) hemostatic matrix (Surgiflo) syringe (CANCELED) ONCE PRN INTRA PROCEDURE, Starting on Sat05/11/24 at 0851, Until Sat05/11/24 at 1057, Intra-Op 0851 (Given - Provider: Jerrell Cazares MD - Comment: PRN)0903 (Given - Provider: Richard Cazares MD - Comment: PRN)0941 (Given - Provider: Richard Cazares MD - Comment: PRN) HYDROmorphone (Dilaudid) inj 0.25 mg (CANCELED) 0.25 mg, IV Push, Q15 MIN PRN Pain, Severe, Pain, Moderate, Starting on Sat05/11/24 at 0845, Until Sat05/11/24 at 1229, For 4 doses, Administer only postop in PACU. Hold for respiratory rate less than 12. Administer up to a total of 1 mg., PACU 1134 (Given - Provider: Fiorella Fernandez RN)1148 (Given - Provider: Katty Fernandez RN) ondansetron (Zofran) inj 4 mg(Linked Group 1) 4 mg, IV Push, Q6H PRN Other, May use for nausea or vomiting if patient unable to take oral ondansetron, Starting on Sat05/11/24 at 1110, Until Sat05/12/24 at 2109, Post-op ondansetron ODT (Zofran) tab 4 mg(Linked Group 1) 4 mg, On Tongue, Q6H PRN Nausea, Vomiting, Starting on Sat05/11/24 at 1110, Until Sat05/12/24 at 2109, Post-op oxyCODONE (Oxy IR) tab 10 mg 10 mg, Oral, Q4H PRN Pain, Severe, Starting on Sat05/11/24 at 1109, Until Sat05/12/24 at 2109, Hold for somnolence or respiratory rate less than 10, Post-op oxyCODONE (Oxy IR) tab 5 mg 5 mg, Oral, Q4H PRN Pain, Moderate, Starting on Sat05/11/24 at 1109, Until Sat05/12/24 at 2109, Hold for somnolence or respiratory rate less than 10, Post-op prochlorperazine (Compazine) inj 10 mg(Linked Group 2) 10 mg, IV Push, Q6H PRN Nausea, Vomiting, Starting on Sat05/11/24 at 1110, Until Sat05/12/24 at 210, Use as second line therapy if nausea and/or vomiting unrelieved with ondansetron. May use if patient unable to take oral prochlorperazine., Post-op prochlorperazine (Compazine) tab 10 mg(Linked Group 2) 10 mg, Oral, Q6H PRN Nausea, Vomiting, Starting on Sat05/11/24 at 1110, Until Sat05/12/24 at 210, Use as second line therapy if nausea and/or vomiting unrelieved with ondansetron., Post-op Thrombin (Thrombin-JMI) topical soln (CANCELED) ONCE PRN INTRA PROCEDURE, Starting on Sat05/11/24 at 0851, Until Sat05/11/24 at 1057, Intra-Op 0851 (Given - Provider: Jerrell Cazares MD - Comment: PRN)1009 (Given - Provider: Richard Cazares MD) vancomycin 1,000 mg in sodium chloride IR 0.9 % 1,000 mL irrigation (CANCELED) Intra-Op 0851 (Given - Provider: Jerrell Cazares MD - Comment: PRN)1008 (Given - Provider: Richard Cazares MD - Comment: PRN) Linked Groups Order Group 1: ondansetron ODT (Zofran) tab 4 mgJump to med 4 mg, On Tongue, Q6H PRN Nausea, Vomiting, Starting on Sat05/11/24 at 1110, Until Sat05/12/24 at 2109, Post-op Or ondansetron (Zofran) inj 4 mgJump to med 4 mg, IV Push, Q6H PRN Other, May use for nausea or vomiting if patient unable to take oral ondansetron, Starting on Sat05/11/24 at 1110, Until Sat05/12/24 at 2109, Post-op Group 2: prochlorperazine (Compazine) tab 10 mgJump to med 10 mg, Oral, Q6H PRN Nausea, Vomiting, Starting on Sat05/11/24 at 1110, Until Sat05/12/24 at 2108, Use as second line therapy if nausea and/or vomiting unrelieved with ondansetron., Post-op Or prochlorperazine (Compazine) inj 10 mgJump to med 10 mg, IV Push, Q6H PRN Nausea, Vomiting, Starting on Sat05/11/24 at 1110, Until Sat05/12/24 at 210, Use as second line therapy if nausea and/or vomiting unrelieved with ondansetron. May use if patient unable to take oral prochlorperazine., Post-op documented in this encounter Advance Directives * [...] Advance Directives occurred with: Patient Care Teams Sterile Preparation Technician Relationship Specialty Start Date End Date Sophia Ramirez MD [address] [place] [address] [place] [address] PCP - General Family Medicine 03/31/24 documented as of this encounter
--- OUTSIDE RECORDS SUMMARY | 2024-08-04 02:25 | External Medical Summary | Summary of Care ---
Author Name Unknown Organization [facility] Address [address] [place] [address] Phone [phone] Care Team Providers Care Senior It Recruiter Name Role Phone Sophia Ramirez MD Primary Care Provide r Reason for Visit * Reason Onset Date Comments Hospital Follow-Up 05/13/20[place] [facility] Details Date Type Department Care Team (Late st Contact Info) Description 05/13/2024 Telephone Ancillary [address] [place] [address] Mary Garibay RN Hospital Follow-[place] [facility] Allergies Active Allergy Reactions Criticality Noted Date Comments No Known Drug Allergy 06/24/2001 documented as of this encounter (statuses as of 05/13/2024) Medications Medication Sig Dispensed Refills Start Date End Date Status Lisinopril-hydroCHLOR Othiazide 10-12.5 MG Oral TabletIndications:Ilsa susan hypertension Take 1 Tablet by mouth in the morning. 90 Tablet 2 09/09/2023 Active Nortriptyline HCl 50 MG Oral Capsule (Pamelor)Indications: [...] Tablet (Crestor)Indications: Dyslipidemia, goal LDL below 100 take one pill by mouth at bedtime 90 Tablet 1 10/01/2023 Active Gabapentin 300 MG Oral Capsule (Neurontin)Indication [...] needed for Constipation. 30 Tablet 05/12/2024 Active documented as of this encounter (statuses [...] encounter Miscellaneous Notes * Telephone Encounter - Mary Garibay RN - 05/13/2024 10:11 AM EDT Transitions of Care Note Reason for Referral:Recent Admission Phone visit for follow up: sriram [place] [facility] [place].11.24 Discharged to: home, Date: 05.12.24 Diagnosis driving hospitalization: Myelopathy (HCC) Principal problem Operations & Procedures: T11-L1 laminotomies and T12/L1 left transpedicular discetomy by Dr Cazares on 05/11/2024. Complications: none significant Source/Contact: Patient SUBJECTIVE Consent: Verbal consent for review of hospital discharge: Yes REVIEW OF SYSTEMS Patient/Other Reports: Current patient/caregiver problems or concerns: none CV: Denies problems Pulmonary: Denies problems Chills/Sweats/Fever:Denies chills/sweats Denies fever Appetite:Denies problems such as nausea, vomiting, burning, decreased appetite Current diet: reg Bowel: denies problems Bladder: denies problems Wound (If applicable): Site-doing well Pain:Intensity- 3 (Scale 0-10) Sleep:Denies problems "slept like a baby" FUNCTIONAL STATUS: ADL'S: Needs Assistance With:N/A as pt is independent IADL'S: Needs Assistance With:Grocery Shopping, Cooking food, and Attending to safety Cognitive and Mental Health: denies problems, alert and oriented x 3, and able to communicate, understand instructions, process information. MEDICATION RECONCILIATION Medications: Reports all medications taken as prescribed. Patient states she called the pharmacy and she is to early to fill her gabapentin, patient states she still has a week of pills left and they said she can fill it next wek OBJECTIVE ASSESSMENT Medication Risk Assessment: No risks identified Did patient fail outpatient treatment? Yes Discharge instructions available for review? Yes PLAN Symptom Monitoring Interventions:Member/caregiver education - signs and symptoms to contact PrimaryCare (DO NOT DELETE-Three ulloa symptoms patient is to report to PCP) 1. Worsening pain, numbness 2. Lamberto redness 3. Drainage from incision Automation Design EngineerArtist Color Separation of Care interventions/Action Plan: 5 - 7 day follow-up with PCP in place - Date: 05.18.24 Educated on role of SRIRAM completed with patient/caregiver. Educated patient/caregiver on patient right to have input on SRIRAM plan of care. Verification of Home Health/DME if indicated: NO Identified Care Gaps: Yes Care Gaps closed this call: Transition of Care follow-up communication Re-evaluation of Plan of Care and progress towards goals achievement: Patient education this visit: Verbal, counseled no heavy lifting >5-10lbs, use walker when walking, work on getting those grabbars in the bathroom No strenuous activity for 2 weeks Plan to follow-up as previously scheduled, instructed to call Primary Care Provider with change in symptoms or as needed before next follow-up, verbalizes understanding and agrees with plan. No lifting or pushing or pulling more than 10 lbs for 2 weeks Mary Garibay RN documented in this encounter Plan of Treatment Upcoming Encounters Date Type Department Care Team (Late st Contact Info) Description 05/18/2024 2:00 PM EDT Office Visit [address] [phone] Gonzales Elizondo MD [address] [place] [address] [place] [address] 05/25/2024 10:30 AM EDT Office Visit Melanie Reed [address] [facility] [place] [id number] Richard Cazares MD [address] [place], [place] [id number] 07/01/2024 10:40 AM EDT Office Visit [address] [phone] Sophia Ramirez MD [address] [place] [address] [place] [address] 07/13/2024 1:00 PM EDT Office Visit Endocrinology [address] [place] [address] Nikhil Cruz CRNP [address] [place] [facility] [place] [address] 08/06/2024 10:15 AM EDT Office Visit Orthopaedics [address] [place] [address] Trevor Palacio PA-C [address] [place] [address] 02/04/2025 2:30 PM EDT Imaging Radiology [address] [place] [address] Scheduled Procedures Name Priority Associated Diagnoses Date/Ti [...] Advance Directives occurred with: Patient Care Teams Senior It Recruiter Relationship Specialty Start Date End Date Sophia Ramirez MD [address] [place] [address] [place] [address] PCP - General Family Medicine 03/31/24 documented as of this encounter
--- OUTSIDE RECORDS SUMMARY | 2024-08-04 02:25 | External Medical Summary | Summary of Care ---
Author Name Unknown Organization [facility] Address [address] [place] [address] Phone [phone] Care Team Providers Care Autobody Technician Name Role Phone Sophia Ramirez MD Primary Care Provide r Reason for Visit * Reason Comments eRx-Medication Refill Encounter Details Date Type Department Care Team (Late st Contact Info) Description 06/10/2024 Refill Family Medicine [address] [phone] Gonzales Elizondo MD [address] [place] [address] [place] [address] Primary hypertension Allergies Active Allergy Reactions Criticality Noted Date Comments No Known Drug Allergy 06/24/2001 documented as of this encounter (statuses as of 06/10/2024) Medications Medication Sig Dispensed Refills Start Date End Date Status Lisinopril-hydroCHL OROthiazide 10-12.5 MG Oral TabletIndications:P rimary [...] at bedtime 90 Tablet 1 10/01/2023 Active methIMAzole 5 MG Oral Tablet (Tapazole) [...] the morning. 90 Capsule 3 06/10/2024 Active Propranolol HCl ER 60 MG Oral Capsule Extended Release 24 Hour (Inderal LA)Indications:Prim stevie hypertension Take 1 Capsule by mouth in the morning. 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 Major depressive disorder Overview: ICD-10 update of inactive term PLANTAR FIBROMATOSIS 013 BMI 33.0-33.9,adult 06/15/20 15 HTN, goal below 140/90 06/27 documented as of this encounter (statuses as of 06/10/2024) Immunizations Name Administration Dates Next Due COVID-19 [...] encounter Miscellaneous Notes * Telephone Encounter - Gelacio Spann [facility] - 06/10/2024 7:45 PM EDTSigned Prescriptions: Disp Refills Propranolol HCl ER 60 MG Oral Capsule Exte*90 Cap*3 Sig: Take 1 Capsule by mouth in the morning.Authorizing Provider: Adolfo RAMIREZ User: GELACIO SPANN documented in this encounter Plan of Treatment Upcoming Encounters Date Type Department Care Team (Late st Contact Info) Description 07/01/2024 10:40 AM EDT Office Visit Family Medicine [address] [phone] Sophia Ramirez MD [address] [place] [address] [place] [address] 07/13/2024 1:00 PM EDT Office Visit Endocrinology [address] [place] [phone] Nikhil Cruz CRNP [address] [facility] [place] [id number] 07/14/2024 2:00 PM EDT Office Visit NeurosurgeryJailyn [address] [place] [address] Richard Cazares MD [address] [facility] [place] [id number] 08/06/2024 10:15 AM EDT Office Visit Orthopaedics [facility] [address] [place] [address] Trevor Palacio PA-C [address] [place] [address] 02/04/2025 2:30 PM EDT Imaging Radiology [address] [place] [address] Scheduled Procedures Name Priority Associated Diagnoses Date/Ti [...] Advance Directives occurred with: Patient Care Teams Autobody Technician Relationship Specialty Start Date End Date Sophia Ramirez MD [address] [place] [address] [place] [phone] PCP - General Family Medicine 03/31/24 documented as of this encounter
--- OUTSIDE RECORDS SUMMARY | 2024-08-04 02:25 | External Medical Summary | Summary of Care ---
Author Name Unknown Organization [facility] Address [address] [place] [address] Phone [phone] Care Team Providers Care Grades 7 And 8 Teacher Name Role Phone Sophia Ramirez MD Primary Care Provide r Reason for Referral * Evaluate & Treat - Unlimited Visits (Within 10 days (routine)) - Authorized Specialty Diagnoses / Procedures Referred By Contac t Referred To Contact Physical Therapy / Physical Medicine And Rehab Diagnoses Myelopathy (HCC) Richard Cazares MD [address] [place] [address] Referral ID Status Reason Start Date Expiration Date Visits Requested Visits Authorized [id number] Authorized Specialty Services Required 05/25/[phone] Question Answer Referral Priority Within 10 days (routine) Where should this appointment be scheduled? Jeremy Comments [place] Reason for Visit * Reason Comments Post-Op Encounter Details Date Type Department Care Team (Late st Contact Info) Description 05/25/2024 10:30 AM EDT Office Visit [facility] [place] [address] [place] [address] Richard Cazares MD [address] [place] [address] Myelopathy (HCC)* Allergies Active Allergy Reactions Criticality Noted Date Comments No Known Drug Allergy 06/24/2001 documented as of this encounter (statuses as of 05/25/2024) Medications Medication Sig Dispensed Refills Start Date End Date Status Lisinopril-hydroCHLO ROthiazide 10-12.5 MG Oral TabletIndications:Pr imary hypertension Take 1 Tablet by mouth in the morning. 90 Tablet 2 09/09/2023 Active Nortriptyline HCl 50 MG Oral Capsule (Pamelor)Indications [...] Tablet (Crestor)Indications :Dyslipidemia, goal LDL below 100 take one pill by mouth at bedtime 90 Tablet 1 10/01/2023 Active methIMAzole 5 MG Oral Tablet (Tapazole) Take 1 Tablet by mouth in the morning. 30 Tablet 5 04/02/2024 Active Acetaminophen 325 MG Oral Tablet (Tylenol) Take 3 tablets by mouth 4 times daily (in the morning, at noon, in the evening, and before bedtime). 30 Tablet 05/12/2024 Active oxyCODONE HCl 5 MG Oral Tablet (Oxy IR) Take 1 Tablet by mouth every 4 hours as needed for moderate or severe post-op pain 30 Tablet 05/12/2024 Active Sennosides 8.6 MG Oral Tablet (Senokot) Take 2 Tablets by mouth daily as needed for Constipation. 30 Tablet 05/12/2024 Active Cyclobenzaprine HCl 10 MG Oral Tablet (Flexeril) Take 1 Tablet by mouth 3 times a day as needed for Muscle spasms. 30 Tablet 05/21/2024 Active Celecoxib 200 MG Oral Capsule (CeleBREX)Indication s:DDD (degenerative disc disease), thoracolumbar Take 1 Capsule by mouth in the morning. 20 Capsule 05/18/2024 Active Gabapentin 300 MG Oral Capsule (Neurontin)Indicatio ns:Chronic bilateral low back pain with left-sided sciatica Take 1 Capsule by mouth in the morning and 1 Capsule before bedtime. 60 Capsule 5 05/18/2024 Active Baclofen 20 MG Oral TabletIndications:DD D (degenerative disc disease), thoracolumbar Take 1 Tablet by mouth in the morning and 1 Tablet at noon and 1 Tablet before bedtime. Do all this for 10 days. 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 Major depressive disorder Overview: ICD-10 update of inactive term PLANTAR FIBROMATOSIS 013 BMI 33.0-33.9,adult 06/15/20 15 HTN, goal below 140/90 06/27 documented as of this encounter (statuses as of 05/25/2024) Immunizations Name Administration Dates Next Due COVID-19 [...] Sign Reading Time Taken Comments Blood Pressure - - Pulse - - Temperature 36.1 C (96.9 F) 05/25/2024 9:42 AM ED T Respiratory Rate - - Oxygen Saturation - - Inhaled Oxygen Concentration - - Weight - - Height - - Body Mass Index - - documented in this encounter Functional Status Functional [...] Progress Notes * Richard Cazares MD - 05/25/2024 10:17 AM EDT PROGRESS NOTE - Neurosurgery [facility] [address] Name: Cecilia Perla Date: 05/25/2024 Time: 10:17 AM 63-year-old woman I am seeing in follow up. She would about 2 weeks out from a thoracic decompression for severe thoracic myelopathy. She has been for outlined already notices an improvement, she waswalking better already although she continues walker. Incision is looking well, I did remove the anson. She was healing quite nicely plan to start physical therapy. She was so far he is very happy with the improvement . I will see her back in perhaps 6-8 weeks to assess her progress. She and her voiced understanding requests to be questions answered. PAST MEDICAL HISTORY: Past Medical [...] Depressive disorder, not elsewhere classified admitted at [facility] x 4 days in January 2001 Generalized [...] performed by Rosa Hall DO at END[facility] COLONOSCOPY, DIAGNOSTIC (RECTUM) 05/03/2021 normal repeat 10 years, performed by Jam Jones MD at ENDOSCOPY [facility] CT CHEST WO CONTRAST 07/07/2017 [...] repeat 1 year MAMMOGRAM SCREENING-BILATERAL Bilateral 1988 [place] TENOTOMY PRQ ACHILLES TENDON SPX LOCAL ANES Right 01/26/2022 Dr Gage, debridement REMOVE ADDED SPINE LAMINA, 1 SEG N/A 05/11/2024 LAMINECTOMY FACETECTOMY AND FORAMINOTOMY ADDITIONAL LEVELS performed by Richard Cazares MD at [facility] REMOVE LUMBAR SPINE LAMINA, 3+ SEGS N/A 05/11/2024 LAMINECTOMY DECOMPRESSION SPINAL CORD POSTERIOR LUMBAR performed by Richard Cazares MD at [facility] REMOVE THORACIC SPINE LAMINA, 1 SEG N/A 05/11/2024 LAMINECTOMY FACETECTOMY AND FORAMINOTOMY POSTERIOR THORACIC performed by Richard Cazares MD at OR [facility] TENOTOMY ACHILLES TENDON, PERC; LOCAL ANESTHESIA Left [...] 1997. Drug use: No Current Outpatient Medications: Cyclobenzaprine HCl 10 MG Oral Tablet (Flexeril), Take 1 Tablet by mouth 3 times a day as needed for Muscle spasms., Disp: 30 Tablet, Rfl: 0 Baclofen 20 MG Oral Tablet, Take 1 Tablet by mouth in the morning and 1 Tablet at noon and 1 Tabletbefore bedtime. Do all this for 10 days., Disp: 30 Tablet, Rfl: 0 Celecoxib 200 MG Oral Capsule (CeleBREX), Take 1 Capsule by mouth in the morning., Disp: 20 Capsule, Rfl: 0 Gabapentin 300 MG Oral Capsule (Neurontin), Take 1 Capsule by mouth in the morning and 1 Capsule before bedtime., Disp: 60 Capsule, Rfl: 5 Acetaminophen 325 MG Oral Tablet (Tylenol), Take 3 tablets by mouth 4 times daily (in the morning, at noon, in the evening, and before bedtime)., Disp: 30 Tablet, Rfl: 0 oxyCODONE HCl 5 MG Oral Tablet (Oxy IR), Take 1 Tablet by mouth every 4 hours as needed for moderate or severe post-op pain, Disp: 30 Tablet, Rfl: 0 Sennosides 8.6 MG Oral Tablet (Senokot), Take 2 Tablets by mouth daily as needed for Constipation.,Disp: 30 Tablet, Rfl: 0 methIMAzole 5 MG Oral Tablet (Tapazole), Take 1 Tablet by mouth in the morning., Disp: 30 Tablet, Rfl: 5 Rosuvastatin Calcium 10 MG Oral Tablet (Crestor), take one pill by mouth at bedtime, Disp: 90 Tablet, Rfl: 1 Tolterodine Tartrate ER 2 MG Oral Capsule Extended Release 24 Hour (Detrol LA), TAKE ONE CAPSULE BYMOUTH IN THE MORNING, Disp: 90 Capsule, Rfl: 2 Lisinopril-hydroCHLOROthiazide 10-12.5 MG Oral Tablet, Take 1 Tablet by mouth in the morning., Disp: 90 Tablet, Rfl: 2 Nortriptyline HCl 50 MG Oral Capsule (Pamelor), TAKE ONE CAPSULE BY MOUTH BEFORE BED, Disp: 90 Capsule, Rfl: 2 Propranolol HCl ER 60 MG Oral Capsule Extended Release 24 Hour (Inderal LA), Take 1 Capsule by mouth in the morning., Disp: 90 Capsule, Rfl: 2 ALLERGIES: No known drug allergy VITALS: Temp 36.1 C (96.9 F) (Tympanic) | LMP 09/25/[address] [facility] Neurosurgery Insert Dragon I am This document was dictated using voice recognition software. Please excuse any errors. documented in this encounter Plan of Treatment Upcoming Encounters Date Type Department Care Team (Late st Contact Info) Description 07/01/2024 10:40 AM EDT Office Visit Family Medicine [address] [place] [phone] Sophia Ramirez MD [address] [place] [address] [place] [address] 07/13/2024 1:00 PM EDT Office Visit Endocrinology [address] [place], [place] [phone] Nikhil Cruz CRNP [address] [place] [address] 07/14/2024 2:00 PM EDT Office Visit Neurosurgery, [place] [address] [facility] [place] [address] Richard Cazares MD [address] [place], [place] [phone] 08/06/2024 10:15 AM EDT Office Visit Orthopaedics [facility] [address] [place] [address] Trevor Palacio PA-C [address] [place] [address] 02/04/2025 2:30 PM EDT Imaging Radiology [address] [place] [address] Scheduled Procedures Name Priority Associated Diagnoses Date/Ti me COLONOSCOPY FLEXIBLE PROXIMA L DIAGNOSTIC Recall Special screening for malignant neoplasms, colon Scheduled Referrals Name Type Priority Associated Diagnoses Orde r Schedule PHYSICAL THERAPY REFERRAL OP Referral Within 10 days (routine) Myelopathy (HCC) Ordered: 05/25/2024 Health Maintenance Due Date Last Done Comments [...] Discontinued 05/03/2021, 05/03/2021, 01/10/2016, Additional history exists GARDASIL-HPV IMMUNIZATION SERIES Aged [...] Advance Directives occurred with: Patient Care Teams Grades 7 And 8 Teacher Relationship Specialty Start Date End Date Sophia Ramirez MD [address] [place] [address] [place] [address] PCP - General Family Medicine 03/31/24 documented as of this encounter"
--- OUTSIDE RECORDS SUMMARY | 2024-08-04 02:25 | External Medical Summary | Summary of Care ---
Author Name Unknown Organization [facility] Address [address] [place] [address] Phone [phone] Care Team Providers Care In Home Baby Sitter Name Role Phone Sophia Ramirez MD Primary Care Provide r Reason for Visit * Reason Onset Date Comments TRIAGE 05/15/2024 Encounter Details Date Type Department Care Team (Late st Contact Info) Description 05/15/2024 Telephone [facility] [address] [place] [address] Services, [facility] [address] [place] [address] TRIAGE Allergies Active Allergy Reactions Criticality Noted Date Comments No Known Drug Allergy 06/24/2001 documented as of this encounter (statuses as of 05/15/2024) Medications Medication Sig Dispensed Refills Start Date [...] as of this encounter (statuses as of 05/15/2024) Active Problems Problem Noted Date Diagnosed Date [...] as of this encounter (statuses as of 05/15/2024) Resolved Problems Problem Noted Date Diagnosed Date Resolved Date IRON DEFIC ANEMIA 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 We discussed her pain. She is having nerve type pain down her leg. We discussed her taking Gabapentin, she restarted this. We discussed taking Oxy, and adding in extra strength Tylenol. We discussed if her pain persists, we can see her early next week. She was agreeable tothis. * Telephone Encounter - Luli Casillas OSA - 05/15/2024 8:09 AM EDT Neuroscience Phone Call Form- Requested Information from caller: Who is calling patient Provider patient is established with: Dr Cazares What is the concern or issue they are having: pt had surgery with Dr Cazares on 05/11 states yesterday her left leg started to hurt and have pins and needles and she could hardly walk How long has the issue been going on: n/a Any additional details to add: no Phone number for nurse to call back: [phone] documented in this encounter Plan of Treatment Upcoming Encounters Date Type Department Care Team (Late st Contact Info) Description 05/18/2024 2:00 PM EDT Office Visit Family [address] [phone] Gonzales Elizondo MD [address] [place] [address] [place] [address] 05/25/2024 10:30 AM EDT Office Visit Neurosurgery, [place] [address] [place] [address] Richard Cazares MD [address] [place] [address] 07/01/2024 10:40 AM EDT Office Visit Family Medicine [address] [phone] Sophia Ramirez MD [address] [place] [address] [place] [address] 07/13/2024 1:00 PM EDT Office Visit Endocrinology [address] [place] [address] Nikhil Cruz CRNP [address] [place] [address] 08/06/2024 10:15 AM EDT Office Visit Orthopaedics [facility] [address] [place] [address] Trevor Palacio PA-C [address] [place] [address] 02/04/2025 2:30 PM EDT Imaging Radiology [address] [place] [address] Scheduled Procedures Name Priority Associated Diagnoses Date/Ti [...] Advance Directives occurred with: Patient Care Teams In Home Baby Sitter Relationship Specialty Start Date End Date Sophia Ramirez MD [address] [place] [address] [place] [address] PCP - General Family Medicine 03/31/24 documented as of this encounter
--- OUTSIDE RECORDS SUMMARY | 2024-08-04 02:25 | External Medical Summary | Summary of Care ---
Author Name Unknown Organization [facility] Address [address] [place] [address] Phone [phone] Care Team Providers Care Chucker Name Role Phone Deshawn Ramirez MD Primary Care Provide r Reason for Visit * Reason Comments eRx-Medication Refill Encounter Details Date Type Department Care Team (Late st Contact Info) Description 06/05/2024 Refill Family Medicine [address] [phone] Gonzales Elizondo MD [address] [place] [address] [place] [address] DDD (degenerative disc disease), thoracolumbar Allergies Active Allergy Reactions Criticality Noted Date Comments No Known Drug Allergy 06/24/2001 documented as of this encounter (statuses as of 06/08/2024) Medications Medication Sig Dispensed Refills Start Date [...] the morning. 30 Capsule 1 06/08/2024 Active Celecoxib 200 MG Oral Capsule (CeleBREX)Indicatio ns:DDD (degenerative disc disease), thoracolumbar Take 1 Capsule by mouth in the morning. 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 Authorizing Provider: DESHAWN RAMIREZ * Telephone Encounter - [facility] located [facility] - 06/08/2024 9:26 AM EDTPending Prescriptions: Disp Refills Celecoxib 200 MG Oral Capsule (CeleBREX) 3 Caps* Sig: Take 1 Capsule by mouth in the morning. Electronically signed by [facility] at 06/08/2024 9:26 AM EDT * Telephone Encounter - Clay Lopez RP - 06/08/2024 9:25 AM EDT Please authorize additional refills if pt is to continue with use. Thanks, Clay Lopez Pharm.D. Clinical Pharmacist [facility] [phone] 06/08/2024, 9:25 AM Did you pend patient's preferred pharmacy and medication before forwarding?yes Pharmacy: [facility], [address] [place] Pending Prescriptions: Disp Refills Celecoxib 200 MG Oral Capsule (CeleBREX) *3 Caps* Sig: Take 1 Capsule by mouth in the morning. Last Visit: 05/18/2024 (in office), Visit date not found (telemedicine) Next Visit: 07/01/2024 If no future appointments scheduled, and last appointment is greater than a year ago, please schedule patient for a follow-up appointment Last date the medication was ordered: 05/18/2024 Is this request for a controlled substance?No Urine Drug Screen:No results found for this or any previous visit. Patient Phone Numbers Labs: Lab Results Component Value Date/Time CREAT 0.8 05/01/2024 02:01 PM CREAT 0.97 01/19/2022 12:00 AM CREAT 0.9 09/19/2020 02:17 PM POTASSIUM 3.8 05/01/2024 02:01 PM POTASSIUM 3.6 01/19/2022 12:00 AM POTASSIUM 4.2 09/19/2020 02:17 PM TSH <0.01 (L) 04/06/2024 01:28 PM TSH 0.25 (L) 04/22/2003 11:45 AM LDLCALC 76 01/01/2017 09:32 AM LDLDIRECT 42 03/10/2024 02:10 PM LDLDIRECT NOT APPLICABLE 01/01/2017 09:32 AM ALT 37 (H) 04/06/2024 01:28 PM ALT 32 03/04/2020 08:05 AM HGBA1C 6.4 (H) 02/27/2024 11:33 AM Electronically signed by [facility] at 06/08/2024 9:26 AM EDT documented in this encounter Plan of Treatment Upcoming Encounters Date Type Department Care Team (Late st Contact Info) Description 07/01/2024 10:40 AM EDT Office Visit Family Medicine [address] [place] [phone] Deshawn Ramirez MD [address] [place] [address] [place] [address] 07/13/2024 1:00 PM EDT Office Visit Endocrinology [address], [place] [address] [place], [place] [phone] Nikhil Cruz CRNP [address] [place] [address] 07/14/2024 2:00 PM EDT Office Visit Neurosurgery, [place] [address] [facility] [place] [phone] Richard Cazares MD [address] [place], [place] [phone] 08/06/2024 10:15 AM EDT Office Visit Orthopaedics [facility] [address] [place] [address] Trevor Palacio PA-C [address] [place] [address] 02/04/2025 2:30 PM EDT Imaging Radiology [address] [place] [address] Scheduled Procedures Name Priority Associated Diagnoses Date/Ti [...] Advance Directives occurred with: Patient Care Teams Chucker Relationship Specialty Start Date End Date Deshawn Ramirez MD [address] [place] [address] [place] [address] PCP - General Family Medicine 03/31/24 documented as of this encounter
--- OUTSIDE RECORDS SUMMARY | 2024-08-04 02:25 | External Medical Summary | Summary of Care ---
Author Name Unknown Organization [facility] Address [address] [place] [address] Phone [phone] Care Team Providers Care Nut Former Name Role Phone Sophia Ramirez MD Primary Care Provide r Reason for Visit * Reason Onset Date Comments Mycode Lab Reorder 05/19/2024 Encounter Details Date Type Department Care Team (Late st Contact Info) Description 05/19/2024 Orders Only Outcomes Research Department [address] [place] [address] Rose Chahal CHRA MyCode Research Other*[id number]* Allergies Active Allergy Reactions Criticality Noted Date Comments No Known Drug Allergy 06/24/2001 documented as of this encounter (statuses as of 05/19/2024) Medications Medication Sig Dispensed Refills Start Date [...] needed for Constipation. 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 Major depressive disorder Overview: ICD-10 update of inactive term PLANTAR FIBROMATOSIS 013 BMI 33.0-33.9,adult 06/15/20 15 HTN, goal below 140/90 06/27 documented as of this encounter (statuses as of 05/19/2024) Immunizations Name Administration Dates Next Due COVID-19 mRNA, LNP-s, No Pre serve, 2-Dose Series (Moderna) 03/21/2021,02/28/2021 COVID-19, LNP-s, No Preserve , Esvin-sucrose, Ages 12+ (Pfizer) 04/03/2022 Covid-19, Mrna, Lnp-s, Pf, B ivalent, 30 Mcg, IM, 12 yrs and above (Dynis) 03/14/2023 Seasonal Influenza, PF, 6 M & [...] as of this encounter Progress Notes * Rose Chahal CHRA - 05/19/2024 11:43 AM EDT MyCode lab reordered. documented in this encounter Plan of Treatment Upcoming Encounters Date Type Department Care Team (Late st Contact Info) Description 05/25/2024 10:30 AM EDT [facility] [place] [address] Richard Cazares MD [address] [place] [address] 07/01/2024 10:40 AM EDT Office Visit Family Medicine [address] [place] [phone] Sophia Ramirez MD [address] [place] [address] [place] [address] 07/13/2024 1:00 PM EDT Office Visit Endocrinology [address] [place] [address] Nikhil Cruz CRNP [address] [facility] [place] [address] 08/06/2024 10:15 AM EDT Office Visit Orthopaedics [facility] [address] [facility] [place] [address] Trevor Palacio PA-C [address] [place] [address] 02/04/2025 2:30 PM EDT Imaging Radiology [address] [place] [address] Scheduled Orders Name Type Priority Associated Diagnoses Orde r Schedule MYCODE SUBSEQUENT ADULT Lab Routine MyCode Research Other*[id number] Every 6 Months for 2 Occurrences starting 05/19/2024 until 06/08/2025 Scheduled Procedures Name Priority Associated Diagnoses Date/Ti [...] as of this encounter Visit Diagnoses Diagnosis MyCode Research Other*[id number] Primary documented in this encounter Advance Directives * [...] Advance Directives occurred with: Patient Care Teams Nut Former Relationship Specialty Start Date End Date Sophia Ramirez MD [address] [place] [address] [place] [address] PCP - General Family Medicine 03/31/24 documented as of this encounter
--- OUTSIDE RECORDS SUMMARY | 2024-08-04 02:25 | External Medical Summary | Summary of Care ---
Author Name Unknown Organization [facility] Address [address] [place] [address] Phone [phone] Care Team Providers Care Land Reclamation Specialist Name Role Phone Sophia Ramirez MD Primary Care Provide r Reason for Visit * Reason Onset Date Comments TRIAGE 05/15/2024 Encounter Details Date Type Department Care Team (Late st Contact Info) Description 05/15/2024 Telephone [facility] [address] [place] [address] Services, [facility] [address] [place] [address] TRIAGE Allergies Active Allergy Reactions Criticality Noted Date Comments No Known Drug Allergy 06/24/2001 documented as of this encounter (statuses as of 05/21/2024) Medications Medication Sig Dispensed Refills Start Date [...] 05/21/2024 Active Gabapentin 300 MG Oral Capsule (Neurontin)Indicat ions:Chronic bilateral low back pain with left-sided sciatica Take 1 Capsule by mouth in the morning and 1 Capsule before bedtime. 60 Capsule 5 03/31/2024 05/18/2024 Discontinue d(Refill) Celecoxib 200 MG Oral Capsule (CeleBREX) Take 1 Capsule by mouth in the morning. Do not start before May 13, 2024. 2 Capsule 05/13/2024 05/18/2024 Discontinue d(Refill) Cyclobenzaprine HCl 10 MG Oral Tablet (Flexeril) Take 1 Tablet by mouth 3 times a day as needed for Muscle spasms. 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 Major depressive disorder Overview: ICD-10 update of inactive term PLANTAR FIBROMATOSIS 013 BMI 33.0-33.9,adult 06/15/20 15 HTN, goal below 140/90 06/27 documented as of this encounter (statuses as of 05/21/2024) Immunizations Name Administration Dates Next Due COVID-19 mRNA, LNP-s, No Pre serve, 2-Dose Series (Moderna) 03/21/2021,02/28/2021 COVID-19, LNP-s, No Preserve , Esvin-sucrose, Ages 12+ (Pfizer) 04/03/2022 Covid-19, Mrna, Lnp-s, Pf, B ivalent, 30 Mcg, IM, 12 yrs and above (Baynetwork) 03/14/2023 Seasonal Influenza, PF, 6 M & [...] as of this encounter Miscellaneous Notes * Addendum Note - Lily Olea PA-C - 05/21/2024 2:21 PM EDTAddended by: LILY OLEA on: 05/21/2024 02:21 PM Modules accepted: Orders * Addendum Note - Veronica Hudson RN - 05/18/2024 11:30 AM EDTAddended by: VERONICA HUDSON on: 05/18/2024 11:30 AM Modules accepted: Orders * Telephone Encounter - Veronica Hudson RN - 05/18/2024 11:29 AM EDT Outgoing call to patient. We discussed her pain medications. She has run out of Flexeril (it was a 10 day supply so should not be out until 05/21). Will send refill request. Scheduled for a telephone call to discuss with Dr. Cazares tomorrow. * Telephone Encounter - Robina Comer OSA - 05/18/2024 11:22 AM EDT Neuroscience Phone Call Form- Requested Information from caller: Who is calling patient Provider patient is established with: Debora What is the concern or issue they are having: ongoing pain How long has the issue been going on: ongoing Any additional details to add: yes: pt aware nurse will call back and is agreeable. Phone number for nurse to call back: [phone] Are forms needed? no Medication Refill? no Verify Pharmacy information is correct. Form to be used for established patients only (not new patients) Clinic has 24-48 hours to respond to caller. If caller is calling back before timeframe with any changes in condition/issues reported, update TEand re-route to appropriate pool If caller is calling back before timeframe- update TE- no need to re-route [facility]- [facility] [place]- [id number] (All messages get sent to the [facility]) Neurology Pool Numbers- [place] patients - follow normal process Ops req [facility] Neurology ([place])- [id number] Ops req NE Neurology ([place]- [facility] and [facility] clinics Only)- [id number] Neurosurgery Pool Numbers- [place] patients- follow normal process Ops req Neurosurgery [facility] ([place])- [id number] Ops req Neurosurgery [facility] ([place] Only) [id number] * Telephone Encounter - Veronica Hudson RN - 05/15/2024 8:53 AM EDT Outgoing [...] Phone number for nurse to call back: [phone] documented in this encounter Plan of Treatment Upcoming Encounters Date Type Department Care Team (Late st Contact Info) Description 05/25/2024 10:30 AM EDT [facility] [place] [address] Richard Cazares MD [address] [place] [address] 07/01/2024 10:40 AM EDT Office Visit Family Medicine [address] [place] [phone] Sophia Ramirez MD [address] [place] [address] [place] [address] 07/13/2024 1:00 PM EDT Office Visit Endocrinology [facility] [address] [place] [address] [place] [address] Nikhil Cruz CRNP [address] [place] [address] 08/06/2024 10:15 AM EDT Office Visit Orthopaedics [facility] [address] [place] [address] Trevor Palacio PA-C [address] [place] [address] 02/04/2025 2:30 PM EDT Imaging Radiology [address] [place] [address] Scheduled Procedures Name Priority Associated Diagnoses Date/Ti [...] or Tdap) 10/14/2024 10/14/2014 Mammogram 02/02/2025 02/03/2024, 0 07/2023, 01/30/2022, Additional history exists HbA1c 02/26/2025 [...] Advance Directives occurred with: Patient Care Teams Land Reclamation Specialist Relationship Specialty Start Date End Date Sophia Ramirez MD [address] [place] [address] [place] [address] PCP - General Family Medicine 03/31/24 documented as of this encounter
--- OUTSIDE RECORDS SUMMARY | 2024-08-04 02:25 | External Medical Summary | Summary of Care ---
Author Name Unknown Organization [facility] Address [address] [place] [address] Phone [phone] Care Team Providers Care Die Cast Supervisor Name Role Phone Sophia Ramirez MD Primary Care Provide r Reason for Visit * Reason Onset Date Comments Medication Refill 05/25/2024 Encounter Details Date Type Department Care Team (Late st Contact Info) Description 05/25/2024 Refill [facility] [address] [place], [place] [phone] Lily Olea PA-C [address] [place], [place] [phone] Allergies Active Allergy Reactions Criticality Noted Date [...] 05/21/2024 Active Celecoxib 200 MG Oral Capsule (CeleBREX)Indicatio ns:DDD (degenerative disc disease), thoracolumbar Take 1 Capsule by mouth in the morning. 20 Capsule 05/18/2024 Active Gabapentin 300 MG Oral Capsule (Neurontin)Indicati ons:Chronic bilateral low back pain with left-sided sciatica Take 1 Capsule by mouth in the morning and 1 Capsule before bedtime. 60 Capsule 5 05/18/2024 Active Baclofen 20 MG Oral TabletIndications:D DD (degenerative disc disease), thoracolumbar Take 1 Tablet by mouth in the morning and 1 Tablet at noon and 1 Tablet before bedtime. Do all this for 10 days. 30 Tablet 05/18/2024 4 Active Acetaminophen 325 MG Oral Tablet (Tylenol) Take 2 Tablets by mouth every 6 hours as needed for Pain, Moderate or Pain, Mild. 30 Tablet 05/25/2024 Active oxyCODONE HCl 5 MG Oral Tablet (Oxy IR) Take 1 Tablet by mouth every 6 hours as needed for Pain, Severe (Postop. May take 2 for severe pain if needed.). 30 Tablet 05/25/2024 Active Acetaminophen 325 MG Oral Tablet (Tylenol) Take 3 tablets by mouth 4 times daily (in the morning, at noon, in the evening, and before bedtime). 30 Tablet 05/12/2024 4 Discontinue d(Refill) oxyCODONE HCl 5 MG Oral Tablet (Oxy IR) Take 1 Tablet by mouth every 4 hours as needed for moderate or severe post-op pain 30 Tablet 05/12/2024 4 Discontinue d(Refill) documented as of this encounter [...] Telephone Encounter - Lily Olea PA-C - 05/25/2024 3:32 PM EDT Signed Prescriptions: Disp Refills Acetaminophen 325 MG Oral Tablet (Tylenol) 30 Tab*0 Sig: Take 2 Tablets by mouth every 6 hours as needed for Pain, Moderate or Pain, Mild. Authorizing Provider: LILY OLEA oxyCODONE HCl 5 MG Oral Tablet (Oxy IR) 30 Tab*0 Sig: Take 1 Tablet by mouth every 6 hours as needed for Pain, Severe (Postop. May take 2 fo r severe pain if needed.). Authorizing Provider: LILY OLEA * Telephone Encounter - Luli Baron CPhT - 05/25/2024 3:22 PM EDT Patient is up to date for office visits. Pt said she is out. Pending Prescriptions: Disp Refills Acetaminophen 325 MG Oral Tablet (Tylenol)30 Tab*0 Sig: Take 3 Tablets by mouth in the morning and 3 Tablets at noon and 3 Tablets in the evening and 3 Tablets before bedtime. oxyCODONE HCl 5 MG Oral Tablet (Oxy IR) 30 Tab*0 Sig: Take 1 Tablet by mouth every 4 hours as needed for Pain, Moderate or Pain, Severe (Postop). Last Visit: 05/25/2024 (in office), Visit date not found (telemedicine) Next Visit: 07/14/2024 If no future appointments scheduled, and last appointment is greater than a year ago, please schedule patient for a follow-up appointment Last date the medication was ordered: 05/12/24 Pharmacy: [facility], [address] [place] Is this request for a controlled substance?Yes, and Urine Drug Screen was NOT completed Urine Drug Screen:No results found for this [...] 10:40 AM EDT Office Visit Family Medicine [address] [place] [phone] Sophia Ramirez MD [address] [place] [address] [place] [address] 07/13/2024 1:00 PM EDT Office Visit Endocrinology [address] [place] [phone] Nikhil Cruz CRNP [address] [place] [address] 07/14/2024 2:00 PM EDT Office Visit Neurosurgery, [place] [address] [place] [address] Richard Cazares MD [address] [place], [place] [phone] 08/06/2024 10:15 AM EDT Office Visit Orthopaedics [facility] [address] [facility] [place] [address] Trevor Palacio PA-C [address] [facility] [place] [address] 02/04/2025 2:30 PM EDT Imaging Radiology [address] [place] [address] Scheduled Procedures Name Priority Associated Diagnoses Date/Ti [...] Advance Directives occurred with: Patient Care Teams Die Cast Supervisor Relationship Specialty Start Date End Date Sellathurai, Thiviyanath, MD [address] [place] [address] [place] [address] PCP - General Family Medicine 03/31/24 documented as of this encounter
--- OUTSIDE RECORDS SUMMARY | 2024-08-04 02:25 | External Medical Summary | Summary of Care ---
Author Name Unknown Organization [facility] Address [address] [place] [address] Phone [phone] Care Team Providers Care Cost And Sales Record Supervisor Name Role Phone Sophia Ramirez MD Primary Care Provide r Reason for Visit * Reason Onset Date Comments Advice 05/29/2024 Encounter Details Date Type Department Care Team (Late st Contact Info) Description 05/29/2024 Telephone [facility] [place] [address] [place] [address] Richard Cazares MD [address] [place] [address] Advice Allergies Active Allergy Reactions Criticality Noted Date Comments No Known Drug Allergy 06/24/2001 documented as of this encounter (statuses as of 05/29/2024) Medications Medication Sig Dispensed Refills Start Date [...] 05/21/2024 Active Celecoxib 200 MG Oral Capsule (CeleBREX)Indications :DDD (degenerative disc disease), thoracolumbar Take 1 Capsule by mouth in the morning. 20 Capsule 05/18/2024 Active Gabapentin 300 MG Oral Capsule (Neurontin)Indication [...] pain if needed.). 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 Pt will call them to schedule the appt. Pt has hand carry orders. documented in this encounter Plan of Treatment Upcoming Encounters Date Type Department Care Team (Late st Contact Info) Description 07/01/2024 10:40 AM EDT Office Visit Family Medicine [address] [place] [phone] Sophia Ramirez MD [address] [place] [address] [place] [address] 07/13/2024 1:00 PM EDT Office Visit Endocrinology [address] [place] [phone] Nikhil Cruz CRNP [address] [place] [address] 07/14/2024 2:00 PM EDT Office Visit [facility] [address] [facility] [place] [place] [phone] Richard Cazares MD [address] [place], [place] [address] 08/06/2024 10:15 AM EDT Office Visit [facility]opa[facility] [place] [address] Trevor Palacio PA-C [address] [place] [address] 02/04/2025 2:30 PM EDT Imaging Radiology [address] [place] [address] Scheduled Procedures Name Priority Associated Diagnoses Date/Ti [...] 03/10/2029 03/10/2024, 02/23, 01/01/2017 Colonoscopy 05/03/2031 05/03/2021, 060 07/2021, 01/10/2016, Additional history exists Colorectal Cancer [...] Advance Directives occurred with: Patient Care Teams Cost And Sales Record Supervisor Relationship Specialty Start Date End Date Sophia Ramirez MD [address] [place] [address] [place] [address] PCP - General Family Medicine 03/31/24 documented as of this encounter
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
--- OUTSIDE RECORDS SUMMARY | 2024-08-04 02:25 | External Medical Summary | Summary of Care ---
Author Name Unknown Organization [facility] Address [address] [place] [address] Phone [phone] Care Team Providers Care Cephalometric Analyst Name Role Phone Sophia Ramirez MD Primary Care Provide r Reason for Visit * Reason Onset Date Comments FYI 05/13/2024 Post discharge c heck Encounter Details Date Type Department Care Team (Late st Contact Info) Description 05/13/2024 8:30 AM EDT Scheduled Telephone Neurosurgery, [place] [address], [place] [phone] [place], Nurse Follow Up Phone Call Neurosurg [address], [place] [phone] Allergies Active Allergy Reactions Criticality Noted Date [...] Telephone Encounter - Veronica Byers RN - 05/13/2024 8:53 AM EDT Outgoing call to do post dsicharge neck, no answer left voicemail. documented in this encounter Plan of Treatment Upcoming Encounters Date Type Department Care Team (Late st Contact Info) Description 05/25/2024 10:30 AM EDT Office Visit Jail[place] Reed [address] [facility] [place] [address] Richard Cazares MD [address] [place] [address] 07/01/2024 10:40 AM EDT Office Visit Family Medicine [address] [place] [address] Sophia Ramirez MD [address] [place] [address] [place] [address] 07/13/2024 1:00 PM EDT Office Visit Endocrinology [address] [place] [phone] Nikhil Cruz CRNP [address] [place] [address] 08/06/2024 10:15 AM EDT Office [facility] [place] [address] Trevor Palacio PA-C [address] [place] [address] 02/04/2025 2:30 PM EDT Imaging Radiology [address] [place] [address] Scheduled Procedures Name Priority Associated Diagnoses Date/Ti [...] Advance Directives occurred with: Patient Care Teams Cephalometric Analyst Relationship Specialty Start Date End Date Sophia Ramirez MD [address] [place] [address] [place] [phone] PCP - General Family Medicine 03/31/24 documented as of this encounter
--- OUTSIDE RECORDS SUMMARY | 2024-08-04 02:25 | External Medical Summary ---
Author Name Unknown Address Unknown Organization : Laboratory Report Ordering Provider Test Date Status DIONE BERG 05/11/2024 07:03:28 Final Perform within 2 hours of garcia rgical procedure. Repeat if procedure delayed beyond 2 hours. Observation Date Value Abnormality Reference (Units ) Status Glucose Point of Care 05/11/2024 07:03:28 102 70-120 (mg/dL) Final Performing Location
--- OUTSIDE RECORDS SUMMARY | 2024-08-04 02:25 | External Medical Summary ---
Author Name Unknown Address Unknown Organization [id number]:[facility] - [address] [place] [address] Laboratory Report Ordering Provider Test Date Status DIONE BERG 05/11/2024 07:02:00 Final Observation Date Value Abnormality Reference (Units ) Status Staphylococcus aureus methicillin resistance SCCmec [Presence] in Nose by BRENDON with probe detection 05/11/2024 07:02:00 Negative Negative Final No Methicillin resistant Sta phylococcus aureus detected by PCR (amplified probe). Methicillin susceptible Stap hylococcus aureus DNA [Presence] in Specimen by BRENDON with probe detection 05/11/2024 07:02:00 Negative Negative Final No Staphylococcus aureus det ected by PCR (amplified probe). Performing Location [facility] - [address] [place] [address]
--- OUTSIDE RECORDS SUMMARY | 2024-08-04 02:25 | External Medical Summary ---
Author Name Unknown Address Unknown Organization [id number]:[facility] - [address] [place] [address] Laboratory Report Ordering Provider Test Date Status DIONE BERG 05/11/2024 07:02:41 Final Observation Date Value Abnormality Reference (Units ) Status ABO 05/11/2024 07:02:41 O Final RH 05/11/2024 07:02:41 Positive Final RED BLOOD CELL ANTIBODY SCREEN 05/11/2024 07:02:41 Negative Final SPECIMEN EXPIRATION DATE 05/11/2024 07:02:41 05/14/2024 23:59 Final Performing Location [facility] - [address] [place] [address]
--- OUTSIDE RECORDS SUMMARY | 2024-08-04 02:25 | External Medical Summary ---
Author Name Unknown Address Unknown Organization [id number]:[facility] - [address] [place] [address] Laboratory Report Ordering Provider Test Date Status DIONE BERG 05/11/2024 07:02:41 Final Observation Date Value Abnormality Reference (Units ) Status ABO 05/11/2024 07:02:41 O Final RH 05/11/2024 07:02:41 Positive Final Performing Location [facility] - [address] [place] [address]
--- OUTSIDE RECORDS SUMMARY | 2024-08-04 02:26 | External Medical Summary ---
Author Name Unknown Address Unknown Organization [id number]:[facility] [place] - [address] [facility] [address] Laboratory Report Ordering Provider Test Date Status AMARILYS HESS 05/01/2024 14:01:49 Padmini l Observation Date Value Abnormality Reference (Units ) Status SYNC LEUKOCYTES IN BLOOD BY AUTOMATED COUNT 05/01/2024 14:01:49 7.16 4.00-10.80 (K/uL) Final Segs 05/01/2024 14:01:49 56.2 40.0-75.0 (%) Final Lymphs % 05/01/2024 14:01:49 29.2 18.0-42.0 (%) Final Monos 05/01/2024 14:01:49 10.2 1.0-11.0 (%) Final Eosinophils 05/01/2024 14:01:49 2.9 0.0-6.0 (%) Final Basos 05/01/2024 14:01:49 1.1 0.0-2.0 (%) Final Immature Granulocyte, Percent 05/01/2024 14:01:49 0.4 0.0-2.0 (%) Final Absolute Segs 05/01/2024 14:01:49 4.02 1.80-7.70 (K/uL) Final Lymphs, absolute 05/01/2024 14:01:49 2.09 1.00-4.80 (K/ul) Final Monos, Abs 05/01/2024 14:01:49 0.73 0.00-1.10 (K/uL) Final Eos, Abs 05/01/2024 14:01:49 0.21 0.00-0.70 (K/uL) Final Basos, Abs 05/01/2024 14:01:49 0.08 0.00-0.20 (K/uL) Final Immature Granulocytes, Number 05/01/2024 14:01:49 0.03 0.00-0.20 (K/uL) Final Performing Location [facility] - [address] [facility] [address]
--- OUTSIDE RECORDS SUMMARY | 2024-08-04 02:26 | External Medical Summary | Summary of Care ---
Author Name Unknown Organization [facility] Address [address] [place] [address] Phone [phone] Care Team Providers Care Graining Operator Name Role Phone Sophia Ramirez MD Primary Care Provide r Reason for Visit * Reason Onset Date Comments FYI 05/08/2024 Labs prior to garcia rgery Encounter Details Date Type Department Care Team (Late st Contact Info) Description 05/08/2024 Telephone [facility], [place] [address] [place] [address] Veronica Byers RN FYI (Labs prior to surgery) Allergies Active Allergy Reactions Criticality Noted Date Comments No Known Drug Allergy 06/24/2001 documented as of this encounter (statuses as of 05/08/2024) Medications Medication Sig Dispensed Refills Start Date [...] at bedtime 90 Tablet 1 10/01/2023 Active Baclofen 20 MG Oral TabletIndications:Chr onic bilateral low back pain with left-sided sciatica Take 1 Tablet by mouth at bedtime as needed for Pain. As needed for muscle pain 90 Tablet 03/31/2024 Active Gabapentin 300 MG Oral Capsule (Neurontin)Indication s:Chronic bilateral low back pain with left-sided sciatica Take 1 Capsule by mouth in the morning and 1 Capsule before bedtime. 60 Capsule 5 03/31/2024 Active methIMAzole 5 MG Oral Tablet (Tapazole) Take 1 Tablet by mouth in the morning. 30 Tablet 5 04/02/2024 Active documented as of this encounter (statuses as of 05/08/2024) Active Problems Problem Noted Date Diagnosed Date Chronic bilateral low back pain with left-sided [...] as of this encounter (statuses as of 05/08/2024) Resolved Problems Problem Noted Date Diagnosed Date Resolved Date IRON DEFIC ANEMIA 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 Major depressive disorder Overview: ICD-10 update of inactive term PLANTAR FIBROMATOSIS 013 BMI 33.0-33.9,adult 06/15/20 15 HTN, goal below 140/90 06/27 documented as of this encounter (statuses as of 05/08/2024) Immunizations Name Administration Dates Next Due COVID-19 [...] in the Last Year Never true 03/14/2020 Sex and Gender Information Value Date Recorded Sex Assigned at Not on file Gender Identity Not on file Sexual Orientation Not on file Job Start Date Occupation Industry Not on file Not on file Not on file documented as of this encounter Miscellaneous Notes * Telephone Encounter - Veronica Byers RN - 05/08/2024 11:57 AM EDT Follow up phone call to patient to relay that she needs to obtain labwork prior to surgery. (Also called yesterday). Patient will complete labs. documented in this encounter Plan of Treatment Upcoming Encounters Date Type Department Care Team (Latest Contact Info) Description 05/11/2024 7:45 AM EDT Hospital Encounter OR [facility], OPERATING ROOM [facility] [address] [place] [phone] Richard Cazares MD [address] [place] [address] 05/11/2024 7:45 AM EDT - 05/11/2024 10:54 AM EDT Surgery OR [facility], OPERATING ROOM [facility] [address] [place] [phone] Richard Cazares MD [address] [place] [address] LAMINECTOMY FACETECTOMY AND FORAMINOTOMY POSTERIOR THORACIC 05/13/2024 8:30 AM EDT Scheduled Telephone Neurosurgery, [place] [address] [place] [address] Melanie Nurse Follow Up Phone Call Neurosurg [address] [place] [address] 05/25/2024 10:30 AM EDT Office Visit NeurosurgeryMelanie [address] [place] [address] Richard Cazares MD [address], [place] [phone] 07/01/2024 10:40 AM EDT Office Visit Family Medicine [address] [place] [phone] Sophia Ramirez MD [address] [place] [address] [place] [address] 07/13/2024 1:00 PM EDT Office Visit Endocrinology [address] [place] [phone] Nikhil Cruz CRNP [address] [place] [address] 08/06/2024 10:15 AM EDT Office Visit Orthopaedics [facility] [address] [place] [address] Trevor Palacio PA-C [address] [place] [address] 02/04/2025 2:30 PM EDT Imaging Radiology [address] [place] [address] Scheduled Procedures Name Priority Associated Diagnoses Date/Ti me LAMINECTOMY FACETECTOMY AND FORAMINOTOMY POSTERIOR THORACIC Osteoarthritis of thoracic spine with myelopathy 05/11/2024 7:45 AM EDT LAMINECTOMY DECOMPRESSION SPINAL CORD POSTERIOR LUMBAR Osteoarthritis of thoracic spine with myelopathy 05/11/2024 7:45 AM EDT LAMINECTOMY FACETECTOMY AND FORAMINOTOMY ADDITIONAL LEVELS Osteoarthritis of thoracic spine with myelopathy 05/11/2024 7:45 AM EDT COLONOSCOPY FLEXIBLE PROXIMAL DIAGNOSTIC Recall Special screening for malignant neoplasms, [...] Not on filedocumented as of this encounter Care Teams Graining Operator Relationship Specialty Start Date End Date Sophia Ramirez MD [address] [place] [address] [place] [address] PCP - General Family Medicine 03/31/24 documented as of this encounter
--- OUTSIDE RECORDS SUMMARY | 2024-08-04 02:26 | External Medical Summary | Summary of Care ---
Author Name Unknown Organization [facility] Address [address] [place] [address] Phone [phone] Care Team Providers Care Drywall Hanger Name Role Phone Sophia Ramirez MD Primary Care Provide r Reason for Visit * Reason Onset Date Comments Advice 05/05/2024 Encounter Details Date Type Department Care Team (Late st Contact Info) Description 05/05/2024 Telephone [facility] [address] [place] [address] Services, [facility] [address] [place] [address] Advice Allergies Active Allergy Reactions Criticality Noted Date Comments No Known Drug Allergy 06/24/2001 documented as of this encounter (statuses as of 05/05/2024) Medications Medication Sig Dispensed Refills Start Date [...] as of this encounter (statuses as of 05/05/2024) Active Problems Problem Noted Date Diagnosed Date [...] as of this encounter (statuses as of 05/05/2024) Resolved Problems Problem Noted Date Diagnosed Date Resolved Date IRON DEFIC ANEMIA 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 Advised her to call the office if she has further questions or concerns. Call satisfied. * Telephone Encounter - No Dominguez OSA - 05/05/2024 2:17 PM EDT Who is calling: Cecilia (Patient) Provider patient is established with: Debora What is the concern or issue they are having: Patient is requesting to know what time her surgery is on 05/11/24. Pts phone number for nurse to call back: [phone] documented in this encounter Plan of Treatment Upcoming Encounters Date Type Department Care Team (Latest Contact Info) Description 05/11/2024 10:39 AM EDT Hospital Encounter OR C, OPERATING ROOM [facility] [address] [facility] [place] [address] Richard Cazares MD [address] [place] [address] 05/11/2024 10:39 AM EDT - 05/11/2024 2:08 PM EDT Surgery OR [facility], OPERATING ROOM [facility] [address] [facility] [place] [address] Richard Cazares MD [address] [facility] [address] LAMINECTOMY FACETECTOMY AND FORAMINOTOMY POSTERIOR THORACIC 05/13/2024 8:30 AM EDT Scheduled Telephone Melanie Reed [address] [place] [phone] Nurse Melanie Follow Up Phone Call Neurosurg [address] [facility] [place] [address] 05/25/2024 10:30 AM EDT Office Visit Melanie Reed [address] [place] [address] Richard Cazares MD [address] [place] [address] 07/01/2024 10:40 AM EDT Office Visit Family Medicine [address] [place] [phone] Sophia Ramirez MD [address] [place] [address] [place] [address] 07/13/2024 1:00 PM EDT Office Visit Endocrinology [facility] [place] [address] [place] [address] Nikhil Cruz CRNP [address] [place] [address] 08/06/2024 10:15 AM EDT Office Visit Orthopaedics [facility] [address] [facility] [place] [address] Trevor Palacio PA-C [address] [place] [address] 02/04/2025 2:30 PM EDT Imaging Radiology [address] [place] [address] Scheduled Procedures Name Priority Associated Diagnoses Date/Ti mn LAMINECTOMY FACETECTOMY AND FORAMINOTOMY POSTERIOR THORACIC Osteoarthritis of thoracic spine with myelopathy 05/11/2024 10:39 AM EDT LAMINECTOMY DECOMPRESSION SPINAL CORD POSTERIOR LUMBAR Osteoarthritis of thoracic spine with myelopathy 05/11/2024 10:39 AM EDT LAMINECTOMY FACETECTOMY AND FORAMINOTOMY ADDITIONAL LEVELS Osteoarthritis of thoracic spine with myelopathy 05/11/2024 10:39 AM EDT COLONOSCOPY FLEXIBLE PROXIMAL DIAGNOSTIC Recall Special screening for malignant neoplasms, colon Health Maintenance Due Date Last Done Comments HPV/Co-Test 1990 Cologuard 2005 Fecal Occult Blood Test 2005 12/12/2001 Sigmoidoscopy 2005 Depression Screening 09/19/2021 09/19/2020 COVID-19 Vaccine (24 season) 2023 03/14/2023, 04/03/2022, 03/21/2021, Additional history [...] filedocumented as of this encounter Care Teams Drywall Hanger Relationship Specialty Start Date End Date Sophia Ramirez MD [address] [place] [address] [place] [address] PCP - General Family Medicine 03/31/24 documented as of this encounter
--- OUTSIDE RECORDS SUMMARY | 2024-08-04 02:26 | External Medical Summary | Summary of Care ---
Author Name Unknown Organization [facility] Address [address] [place] [address] Phone [phone] Care Team Providers Care Airport Manager Name Role Phone Sophia Ramirez MD Primary Care Provide r Reason for Visit * Reason Onset Date Comments Appointment 04/27/2024 Encounter Details Date Type Department Care Team (Late st Contact Info) Description 04/27/2024 Telephone Neurosurgery, [place] [address] [address] Zahida, Harry No Resource [address] [place] [address] Appointment Allergies Active Allergy Reactions Criticality Noted Date Comments No Known Drug Allergy 06/24/2001 documented as of this encounter (statuses as of 04/28/2024) Medications Medication Sig Dispensed Refills Start Date [...] as of this encounter (statuses as of 04/28/2024) Active Problems Problem Noted Date Diagnosed Date [...] as of this encounter (statuses as of 04/28/2024) Resolved Problems Problem Noted Date Diagnosed Date Resolved Date IRON DEFIC ANEMIA 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 Cazares ([facility] Neurosurgery) yesterday and was a no show. She is rescheduled with him for today. * Telephone Encounter - Brenda Rapp OSA - 04/27/2024 10:27 AM EDT Pt calling Dr Guerra back, she stated she missed his call Ty documented in this encounter Plan of Treatment Upcoming Encounters Date Type Department Care Team (Late st Contact Info) Description 04/28/2024 3:30 PM EDT Office Visit Neurosurgery, [place] [address] [place] [address] Richard Cazares MD [facility] [place] [address] 05/12/2024 11:20 AM EDT Office Visit Neurology [facility] [address] [place] [address] Bishop Womack, [address] [facility] [place] [address] 07/01/2024 10:40 AM EDT Office Visit Family Medicine [address] [phone] Sophia Ramirez MD [address] [place] [address] [place] [address] 07/13/2024 1:00 PM EDT Office Visit Endocrinology, [address] [address] Nikhil Cruz CRNP [address] [place] [address] 08/06/2024 10:15 AM EDT Office Visit Orthopaedics [facility] [address] [place] [address] Trevor Palacio PA-C [address] [place] [address] 02/04/2025 2:30 PM EDT Imaging Radiology [address] [place] [address] Scheduled Procedures Name Priority Associated Diagnoses Date/Ti [...] 01/17/2024 01/17/2021, 11/26, 12/21/2015, Additional history exists GFR 03/13/2024 03/13/2023, 12/27, 09/21/2021, Additional history exists DTaP,Tdap,and Td Vaccines (2 - Td or Tdap) 10/14/2024 10/14/2014 Mammogram 02/02/2025 02/03/2024, 07/2023, 01/30/2022, Additional history exists HbA1c 02/26/2025 02/27/2024 Albumin/Creatinine Ratio 10/01/2025 022, 09/21/2021, 09/19/2020, Additional [...] filedocumented as of this encounter Care Teams Airport Manager Relationship Specialty Start Date End Date Sophia Ramirez MD [address] [place] [address] [place] [address] PCP - General Family Medicine 03/31/24 documented as of this encounter
--- OUTSIDE RECORDS SUMMARY | 2024-08-04 02:26 | External Medical Summary | Summary of Care ---
Author Name Unknown Organization [facility] Address [address] [place] [address] Phone [phone] Care Team Providers Care Production Technologist Name Role Phone Sophia Ramirez MD Primary Care Provide r Reason for Visit * Reason Comments Outpatient Testing Encounter Details Date Type Department Care Team (Late st Contact Info) Description 05/01/2024 2:10 PM EDT Laboratory Laboratory [address] [place] [phone] [place] [address] Arrived Allergies Active Allergy Reactions Criticality Noted Date Comments No Known Drug Allergy 06/24/2001 documented as of this encounter (statuses as of 05/01/2024) Medications Medication Sig Dispensed Refills Start Date [...] as of this encounter (statuses as of 05/01/2024) Active Problems Problem Noted Date Diagnosed Date [...] as of this encounter (statuses as of 05/01/2024) Resolved Problems Problem Noted Date Diagnosed Date Resolved Date IRON DEFIC ANEMIA 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 Major depressive disorder Overview: ICD-10 update of inactive term PLANTAR FIBROMATOSIS 013 BMI 33.0-33.9,adult 06/15/20 15 HTN, goal below 140/90 06/27 documented as of this encounter (statuses as of 05/01/2024) Immunizations Name Administration Dates Next Due COVID-19 [...] on file documented as of this encounter Plan of Treatment Upcoming Encounters Date Type Department Care Team (Late st Contact Info) Description 05/11/2024 Hospital Encounter [facility] [address] [facility] [address] Richard Cazares MD [address] [place] [address] 05/13/2024 8:30 AM EDT Scheduled Telephone Neurosurgery, [place] [address] [facility] [place] [address] [place], Nurse Follow Up Phone Call Neurosurg [address] [place] [address] 05/25/2024 10:30 AM EDT Office Visit Neurosurgery, [place] [address] [place] [address] Richard Cazares MD [address] [place] [address] 07/01/2024 10:40 AM EDT Office Visit Family Medicine [address] [place] [address] Sophia Ramirez MD [address] [place] [address] [place] [address] 07/13/2024 1:00 PM EDT Office Visit Endocrinology, [place] [address] [facility] [place] [address] Nikhil Cruz CRNP [address] [place] [address] 08/06/2024 10:15 AM EDT Office Visit Orthopaedics [facility] [address] [place] [address] Trevor Palacio PA-C [address] [place] [address] 02/04/2025 2:30 PM EDT Imaging Radiology [address] [place] [address] Scheduled Procedures Name Priority Associated Diagnoses Date/Ti me LAMINECTOMY FACETECTOMY AND FORAMINOTOMY POSTERIOR THORACIC Osteoarthritis of thoracic spine with myelopathy LAMINECTOMY DECOMPRESSION SP INAL CORD POSTERIOR LUMBAR Osteoarthritis of thoracic spine with myelopathy LAMINECTOMY FACETECTOMY AND FORAMINOTOMY ADDITIONAL LEVELS Osteoarthritis of thoracic spine with myelopathy COLONOSCOPY FLEXIBLE PROXIMA L DIAGNOSTIC Recall Special [...] Additional history exists Lipid Panel 03/10/2029 03/10/2024, 04/1 07/2023, 01/01/2017 Colonoscopy 05/03/2031 05/03/2021, 06/0 07/2021, 01/10/2016, [...] filedocumented as of this encounter Care Teams Production Technologist Relationship Specialty Start Date End Date Sophia Ramirez MD [address] [place] [address] [place] [address] PCP - General Family Medicine 03/31/24 documented as of this encounter
--- OUTSIDE RECORDS SUMMARY | 2024-08-04 02:26 | External Medical Summary ---
Author Name Unknown Address Unknown Organization K01:LABOR[facility] - [address] [place] [address] Laboratory Report Ordering Provider Test Date Status GABRIEL ADAM 05/08/2024 13:28:01 Final Anticoagulation may affect t esting. Refer to [employer] Test Catalog for a list of effects. Observation Date Value Abnormality Reference (Units ) Status aPTT panel - Platelet poor plasma 05/08/2024 13:28:01 28 21-38 (seconds) Final Performing Location [facility] - [address] [place] [address]
--- OUTSIDE RECORDS SUMMARY | 2024-08-04 02:26 | External Medical Summary | Summary of Care ---
Author Name Unknown Organization [facility] Address [address] [place] [address] Phone [phone] Care Team Providers Care Airplane And Engine Inspector Name Role Phone Sophia Ramirez MD Primary Care Provide r Reason for Visit * Reason Onset Date Comments Test Results 04/17/2024 Unexpected or In determinate Result Encounter Details Date Type Department Care Team (Late st Contact Info) Description 04/17/2024 Telephone Laboratory, [place] [address] [place] [address] Richard Cazares MD [address] [place] [address] Test Results (Unexpected or Indeterminate ... 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 VMB full. Patient is scheduled as a telephone visit on April 27 at 10:00am with Dr. Cazares to discuss. * Telephone Encounter - Alejandra Waterman filament wound parts fabricator - 04/24/2024 11:38 AM EDT Patient calling to request MRI results Please call patient and advise Thank You, Alejandra Waterman, [facility] French Edge Operator III [facility] * Telephone Encounter - Robert Champion OSA - 04/17/2024 10:24 PM EDT Hello- The radiologist discovered an unexpected or indeterminate finding on Cecilia Perla ([id number]) and asks that you review the following report. Study Type:MRI C SPINE WO CONTRAST Date of Study: 04/17/2024 IMPRESSION: 1. Severe canal narrowing at C5-C6 and moderate canal narrowing at C6-C7. Spine surgery consultation is recommended 2. Severe left C6-C7 foraminal narrowing. 3. Severe disc disease at C4-C7 with prompt anterior spurring. 4. Left thyroid nodule measuring 1.8 cm. Consider thyroid ultrasound. Please respond to this encounter to acknowledge receipt of this message and take responsibility to ensure this report is reviewed. Thank you, TREE Martinez Client Service [facility] [place] documented in this encounter Plan of Treatment Upcoming Encounters Date Type Department Care Team (Late st Contact Info) Description 04/27/2024 10:00 AM EDT Telemedicine Neurosurgery, [place] [address] [place] [address] Richard Cazares MD [address] [place] [address] 05/12/2024 11:20 AM EDT Office Visit Neurology [facility] [address] [place] [address] Bishop Womack, [address] [place] [address] 07/01/2024 10:40 AM EDT Office Visit Family Medicine [address] [place] [phone] Sophia Ramirez MD [address] [place] [address] [place] [address] 07/13/2024 1:00 PM EDT Office Visit Endocrinology, [place] [address] [place] [address] Nikhil Cruz CRNP [address] [place] [address] 08/06/2024 10:15 AM EDT Office Visit Orthopaedics [facility] [address] [place] [address] Trevor Palacio PA-C [address] [place] [address] 02/04/2025 2:30 PM EDT Imaging Radiology [address] [place] [address] Scheduled Procedures Name Priority Associated Diagnoses Date/Ti [...] filedocumented as of this encounter Care Teams Airplane And Engine Inspector Relationship Specialty Start Date End Date Sophia Ramirez MD [address] [place] [address] [place] [address] PCP - General Family Medicine 03/31/24 documented as of this encounter
--- OUTSIDE RECORDS SUMMARY | 2024-08-04 02:26 | External Medical Summary | Summary of Care ---
Author Name Unknown Organization [facility] Address [address] [place] [address] Phone [phone] Care Team Providers Care Category Development Analyst Name Role Phone Sophia Ramirez MD Primary Care Provide r Reason for Visit * Reason Onset Date Comments Advice 04/29/2024 Encounter Details Date Type Department Care Team (Late st Contact Info) Description 04/29/2024 Telephone Family Medicine [address] [phone] Sophia Ramirez MD [address] [place] [address] [place] [address] Advice Allergies Active Allergy Reactions Criticality Noted Date Comments No Known Drug Allergy 06/24/2001 documented as of this encounter (statuses as of 04/29/2024) Medications Medication Sig Dispensed Refills Start Date [...] as of this encounter (statuses as of 04/29/2024) Active Problems Problem Noted Date Diagnosed Date [...] as of this encounter (statuses as of 04/29/2024) Resolved Problems Problem Noted Date Diagnosed Date Resolved Date IRON DEFIC ANEMIA 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 * Telephone Encounter - Brisa Kent LPN - 04/29/2024 10:57 AM EDT Left message for pt to return my call. * Telephone Encounter - Sophia Ramirez MD - 04/29/2024 9:07 AM EDT Can we atiya a clinic visit within next 2 weeks for a pre-op clearance * Telephone Encounter - Sophia Ramirez MD - 04/29/2024 9:06 AM EDT ----- Message from Richard Cazares MD sent at 04/28/2024 3:21 PM EDT ----- Pepito Brooks has a severe thoracic myelopathy. She needs a thoracic laminectomy over the next few weeks to month or 2. Would you be able to evaluate her for pre-operative clearance? documented in this encounter Plan of Treatment Upcoming Encounters Date Type Department Care Team (Late st Contact Info) Description 05/01/2024 1:40 PM EDT Office Visit [address] [place] [phone] Sophia Ramirez MD [address] [place] [address] [place] [address] 07/01/2024 10:40 AM EDT Office Visit [address] [place] [phone] Sophia Ramirez MD [address] [place] [address] [place] [address] 07/13/2024 1:00 PM EDT Office Visit Endocrinology, [place] [address] [place] [address] Nikhil Cruz CRNP [address] [place] [facility] [place] [place] [address] 08/06/2024 10:15 AM EDT Office Visit Orthopaedics [facility] [address] [place] [address] Trevor Palacio PA-C [address] [place] [address] 02/04/2025 2:30 PM EDT Imaging Radiology [address] [place] [address] Scheduled Procedures Name Priority Associated Diagnoses Date/Ti [...] filedocumented as of this encounter Care Teams Category Development Analyst Relationship Specialty Start Date End Date Sophia Ramirez MD [address] [place] [address] [place] [address] PCP - General Family Medicine 03/31/24 documented as of this encounter
--- OUTSIDE RECORDS SUMMARY | 2024-08-04 02:26 | External Medical Summary | Summary of Care ---
Author Name Unknown Organization [facility] Address [address] [place] [address] Phone [phone] Care Team Providers Care Ivf Embryologist Name Role Phone Sophia Ramirez MD Primary Care Provide r Encounter Details Date Type Department Care Team (Late st Contact Info) Description 04/07/2024 Result Scan Unspecified Department <No scans attached> Allergies Active Allergy Reactions Criticality Noted Date Comments No Known Drug Allergy 06/24/2001 documented as of this encounter (statuses as of 04/27/2024) Medications Medication Sig Dispensed Refills Start Date [...] as of this encounter (statuses as of 04/27/2024) Active Problems Problem Noted Date Diagnosed Date [...] as of this encounter (statuses as of 04/27/2024) Resolved Problems Problem Noted Date Diagnosed Date Resolved Date IRON DEFIC ANEMIA 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 Major depressive disorder Overview: ICD-10 update of inactive term PLANTAR FIBROMATOSIS 013 BMI 33.0-33.9,adult 06/15/20 15 HTN, goal below 140/90 06/27 documented as of this encounter (statuses as of 04/27/2024) Immunizations Name Administration Dates Next Due COVID-19 [...] Description 04/27/2024 10:00 AM EDT Telemedicine Neurosurgery, [place] [address] [place] [address] Richard Cazares MD [address] [place] [address] 05/12/2024 11:20 AM EDT Office Visit Neurology [place] [address] [place] [address] Bishop Womack, DO [address] [place] [address] 07/01/2024 10:40 AM EDT Office Visit Family Medicine [address] [place] [phone] Sophia Ramirez MD [address] [place] [address] [place] [address] 07/13/2024 1:00 PM EDT Office Visit Endocrinology, [place] [address] [place] [address] Nikhil Cruz CRNP [address] [place] [address] 08/06/2024 10:15 AM EDT Office Visit Orthopaedics [facility] [address] [place] [address] Trevor Palacio PA-C [address] [facility] [place] [address] 02/04/2025 2:30 PM EDT Imaging Radiology [address] [place] [address] Scheduled Procedures Name Priority Associated Diagnoses Date/Ti [...] or Tdap) 10/14/2024 10/14/2014 Mammogram 02/02/2025 02/03/2024, 030 07/2023, 01/30/2022, Additional history exists HbA1c 02/26/2025 [...] Procedure Name Priority Date/Time Associated Diagnosis Comments RADIOLOGY SCANNED RESULT 04/07/2024 documented in this encounter Results * RADIOLOGY SCANNED RESULT (04/07/2024) 04/07/2024 No Physician Data Unknown DIAGNOSTIC RAD IOLOGY SERVICES documented in this encounter Care Teams Ivf Embryologist Relationship Specialty Start Date End Date Sellathurai, Thiviyanath, MD [address] [place] [address] [place] [address] PCP - General Family Medicine 03/31/24 documented as of this encounter
--- OUTSIDE RECORDS SUMMARY | 2024-08-04 02:26 | External Medical Summary | Summary of Care ---
Author Name Unknown Organization [facility] Address [address] [place] [address] Phone [phone] Care Team Providers Care Box Printing Machine Operator Name Role Phone Sophia Ramirez MD Primary Care Provide r Reason for Visit * Reason Onset Date Comments Advice 04/29/2024 Encounter Details Date Type Department Care Team (Late st Contact Info) Description 04/29/2024 Telephone Family Medicine [address] [phone] Sophia Ramirez MD [address] [place] [address] [place] [address] Advice Allergies Active Allergy [...] encounter Miscellaneous Notes * Telephone Encounter - Brisa Kent LPN [...] Description 05/01/2024 1:40 PM EDT Office Visit [address] [phone] Sophia Ramirez MD [address] [place] [address] [place] [address] 07/01/2024 10:40 AM EDT Office Visit [address] [phone] Sophia Ramirez MD [address] [place] [address] [place] [address] 07/13/2024 1:00 PM EDT Office Visit Endocrinology, [place] [address] [place] [address] Nikhil Cruz CRNP [address] [place] [address] 08/06/2024 10:15 AM EDT Office Visit Orthopaedics [facility] [address] [place] [address] Trevor Palacio PA-C [address] [place] [address] 02/04/2025 2:30 PM EDT Imaging Radiology [address] [place] [address] Scheduled Procedures Name Priority Associated Diagnoses Date/Ti [...] filedocumented as of this encounter Care Teams Box Printing Machine Operator Relationship Specialty Start Date End Date Sophia Ramirez MD [address] [place] [address] [place] [address] PCP - General Family Medicine 03/31/24 documented as of this encounter
--- OUTSIDE RECORDS SUMMARY | 2024-08-04 02:26 | External Medical Summary | Summary of Care ---
Author Name Unknown Organization [facility] Address [address] [place] [address] Phone [phone] Care Team Providers Care Research Chief Engineer Name Role Phone Sophia Ramirez MD Primary Care Provide r Reason for Visit * Reason Comments Outpatient Testing Encounter Details Date Type Department Care Team (Late st Contact Info) Description 05/08/2024 1:30 PM EDT Laboratory Laboratory [address] [place] [phone] [place] [address] Osteoarthritis of thoracic spine with myelopathy Allergies Active Allergy Reactions Criticality Noted Date [...] 05/11/2024 7:45 AM EDT Hospital Encounter [facility] [address] [place] [phone] Richard Cazares MD [address] [place], [place] [phone] 05/11/2024 7:45 AM EDT - 05/11/2024 10:54 AM EDT Surgery OR [facility], [facility] [place] [address] [place] [facility] [place] [phone] Richard Cazares MD [address] [place], [place] [phone] LAMINECTOMY FACETECTOMY AND FORAMINOTOMY POSTERIOR THORACIC 05/13/2024 8:30 AM EDT Scheduled Telephone Neurosurgery, [place] [address] [facility] [place] [address] [place], Nurse Follow Up Phone Call Neurosurg [address] [facility] [place] [phone] 05/25/2024 10:30 AM EDT Office Visit Neurosurgery, [place] [address] [place] [facility] [place] [address] Richard Cazares MD [address] [place], [place] [phone] 07/01/2024 10:40 AM EDT Office Visit Family [address] [phone] Sophia Ramirez MD [address] [place] [address] [place] [address] 07/13/2024 1:00 PM EDT Office Visit Endocrinology [address] [place] [phone] Nikhil Cruz CRNP [address] [facility] [place] [address] 08/06/2024 10:15 AM EDT Office Visit Orthopaedics [facility] [address] [place] [address] Trevor Palacio PA-C [address] [place] [address] 02/04/2025 2:30 PM EDT Imaging Radiology [address] [place] [address] Pending Results Name Type Priority Associated Diagnoses Date /Time PT INR Lab Routine Osteoarthritis of thoracic spine with myelopathy 05/08/2024 1:27 PM EDT APTT Lab Routine Osteoarthritis of thoracic spine with myelopathy 05/08/2024 1:28 PM EDT Scheduled Procedures Name Priority Associated Diagnoses [...] as of this encounter Visit Diagnoses Diagnosis 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
--- OUTSIDE RECORDS SUMMARY | 2024-08-04 02:26 | External Medical Summary | Summary of Care ---
Author Name Unknown Organization [facility] Address [address] [place] [address] Phone [phone] Care Team Providers Care Cut Off Machine Operator Name Role Phone Sophia Ramierz MD Primary Care Provide r Reason for Visit * Reason Onset Date Comments Advice 04/29/2024 Encounter Details Date Type Department Care Team (Late st Contact Info) Description 04/29/2024 Telephone Family Medicine [address] [phone] Sophia Ramirez MD [address] [place] [address] [place] [address] Advice Allergies Active Allergy [...] encounter Miscellaneous Notes * Telephone Encounter - Sophia Ramirez MD [...] Care Team (Late st Contact Info) Description 05/12/2024 11:20 AM EDT Office Visit Neurology [facility] [address] [facility] [place] [address] Bishop Womack, [address] [facility] [place] [address] 07/01/2024 10:40 AM EDT Office Visit Family Medicine [address] [phone] Sophia Ramirez MD [address] [place], [place] [address] [place] [address] 07/13/2024 1:00 PM EDT Office Visit Endocrinology, [place] [address] [place] [address] Nikhil Cruz CRNP [address] [place] [address] 08/06/2024 10:15 AM EDT Office Visit Orthopaedics [facility] [address] [place] [address] Trevor Palacio PA-C [address] [place] [address] 02/04/2025 2:30 PM EDT Imaging Radiology [address] [place] [address] Scheduled Procedures Name Priority Associated Diagnoses Date/Ti [...] filedocumented as of this encounter Care Teams Cut Off Machine Operator Relationship Specialty Start Date End Date Sophia Ramirez MD [address] [place] [address] [place] [phone] PCP - General Family Medicine 03/31/24 documented as of this encounter
--- OUTSIDE RECORDS SUMMARY | 2024-08-04 02:26 | External Medical Summary ---
Author Name Unknown Address Unknown Organization [id number]:LABORATORY [facility] [place] - [address] [place] [address] Laboratory Report Ordering Provider Test Date Status GABRIEL ADAM 05/08/2024 13:27:51 Final Warfarin Therapy
INR: 2 .0-3.0 conventional anticoagulation
INR: 2.5- 3.5 high intensity anticoagulation Observation Date Value Abnormality Reference (Units ) Status PT 05/08/2024 13:27:51 12.4 11.6-15.2 (seconds) Final INR 05/08/2024 13:27:51 0.9 0.8-1.2 Final Performing Location LAB[facility]ATORY [facility] [place] - [address] [place] [address]
--- OUTSIDE RECORDS SUMMARY | 2024-08-04 02:26 | External Medical Summary | Summary of Care ---
Author Name Unknown Organization [facility] Address [address] [place] [address] Phone [phone] Care Team Providers Care Motor Vehicle Field Representative Name Role Phone Sophia Ramirez MD Primary Care Provide r Reason for Visit * Reason Comments pre-op exam Encounter Details Date Type Department Care Team (Late st Contact Info) Description 05/01/2024 1:40 PM EDT Office Visit Family Medicine [address] [phone] Sophia Ramirez MD [address] [place] [address] [place] [address] Preoperative clearance* Allergies Active Allergy Reactions Criticality Noted Date [...] Date Smoking Tobacco: Never Smokeless Tobacco: Never Tobacco Cessation:Counseling Given: Not Answered Alcohol Use Standard Drinks/Week Comments Not Currently [...] Sign Reading Time Taken Comments Blood Pressure 116/70 05/01/2024 1:34 PM EDT Pulse 84 05/01/2024 1:34 PM EDT Temperature 35.9 C (96.6 F) 05/01/2024 1:34 PM ED T Respiratory Rate - - Oxygen Saturation 94% 05/01/2024 1:34 PM EDT Inhaled Oxygen Concentration - - Weight 95.7 kg (211 lb) 05/01/2024 1:34 PM EDT Height - - Body Mass Index 37.38 07/26/2023 9:09 AM EDT documented in this encounter Progress Notes * Sophia Ramirez MD - 05/01/2024 1:33 PM EDT Subjective: HPI: Cecilia Perla is a 63 year old female with hx of HTN, Prediabetes, Overactive bladder, DDD, hyperthyroidism, HLD, Insomnia, chronic lower back pain seen for Pre-op clearance - procedure/ surgeon/ date: Thoracic Laminectomy/foraminotomy/Dr. Cazares / 05/11/24 - Hx of NH or CVA: Denied - Prior hx of surgery: b/l feet surgery ----- Any complication from General anesthesia: Denied - chest pain/ shortness of breath with exertion: Denied - new fevers, chills, cough, signs of infection: Denied - on anticoagulation: No - Currently smoking: No Pt does have hyperthyroidism: - per pt she is feeling better with methimazole - T4 is improving Currently taking Gabapentin 300mg BID - helps with pain Patient Active Problem List Diagnosis Allergic rhinitis due to allergen GENERAL OSTEOARTHROSIS BMI 35.0-35.9,adult Overactive bladder Lichen sclerosus Primary hypertension Post concussion syndrome Incidental pulmonary nodule, > 3mm and < 8mm Prediabetes Chronic bilateral low back pain with left-sided sciatica Mixed hyperlipidemia Insomnia Current Outpatient Medications Medication Sig Dispense Refill [...] by mouth at bedtime 90 Tablet 1 Baclofen 20 MG Oral Tablet Take 1 Tablet by mouth at bedtime as needed for Pain. As needed for muscle pain 90 Tablet 0 Gabapentin 300 MG Oral Capsule (Neurontin) Take 1 Capsule by mouth in the morning and 1 Capsule before bedtime. 60 Capsule 5 methIMAzole 5 MG Oral Tablet (Tapazole) Take 1 Tablet by mouth in the morning. 30 Tablet 5 No current facility-administered medications for this visit. [...] Depressive disorder, not elsewhere classified [place] [facility] [place] Generalized [...] performed by Rosa Hall DO at [facility] COLONOSCOPY, DIAGNOSTIC (RECTUM) 05/03/2021 normal repeat 10 years, performed by Jam Jones MD at [facility] CT CHEST WO CONTRAST 07/07/2017 6 [...] repeat 1 year MAMMOGRAM SCREENING-BILATERAL Bilateral 1988 [place] TENOTOMY PRQ ACHILLES TENDON SPX LOCAL ANES [...] Vaping/E-Cigarette Devices ROS: -Per HPI OBJECTIVE: BP 116/70 | Pulse 84 | Temp 35.9 C (96.6 F) (Tympanic) | Wt 95.7 kg (211 lb) | LMP 09/25/2001 |SpO2 94% | BMI 37.38 kg/m | BSA 2.06 m PHYSICAL EXAM: Vitals are reviewed General:. NAD, well developed HEENT:. Normal Conjunctiva, EOMI Cardiac:. Normal S1, S2, no murmur Lungs:. CTA, no wheezing or crackles Abd:. soft, ND, NT MSK:.b/l trace LE pitting edema Psych:. AAOx3, normal affect ASSESSMENT/PLAN: VSS and normal PE EKG: NSR, No ST changes, similar to previous EKG Hyperthyroidism is slowly improving Pt's chronic conditions are stable Revised cardiac index of zero (looking at the previous Cr) - pt is cleared for surgery - will get labs today Preoperative clearance (Primary) - EKG - BASIC METABOLIC PANEL - CBC WITH WBC DIFFERENTIAL I spent a total of 30-39 minutes (exact time 34 mins) on the date of service in preparation, delivery, and documentation of the care provided to Cecilia Perla excluding any time spent in the performance of separately billed services. Sophia Ramirez MD Family medicine, [place] [address] documented in this encounter Nursing Notes * Luis E Arias LPN - 05/01/2024 1:33 PM EDT Chief Complaint Patient presents with pre-op exam Pre op exam for Dr. Cazares Laminectomy facetectomy and foraminotomy posterior thoracic on 05/11/2024 Decompression spinal cord The patient has been properly identified by confirmation of name and date of . documented in this encounter Plan of Treatment Upcoming Encounters Date Type Department Care Team (Late st Contact Info) Description 05/11/2024 Hospital Encounter [facility] [address] [place] [facility] [address] Richard Cazares MD [address] [place], [place] [phone] 05/13/2024 8:30 AM EDT Scheduled Telephone Neurosurgery, [place] [address] [place] [address] [place], Nurse Follow Up Phone Call Neurosurg [address] [place] [address] 05/25/2024 10:30 AM EDT Office Visit Neurosurgery, [place] [address] [place] [facility] [place] [address] Richard Cazares MD [address] [facility] [place] [address] 07/01/2024 10:40 AM EDT Office Visit Family Medicine [address] [address] Sophia Ramirez MD [address] [place] [address] [place] [address] 07/13/2024 1:00 PM EDT Office Visit Endocrinology, [place] [address] [facility], [place] [phone] Nikhil Cruz CRNP [address] [facility], [place] [phone] 08/06/2024 10:15 AM EDT Office Visit Orthopaedics [facility] [address] [place] [phone] Trevor Palacio PA-C [address] [place] [address] 02/04/2025 2:30 PM EDT Imaging Radiology [address] [place] [address] Pending Results Name Type Priority Associated Diagnoses Date /Time BASIC METABOLIC PANEL Lab Routine Preoperative clearance 05/01/2024 2:01 PM EDT CBC WITH WBC DIFFERENTIAL Lab Routine Preoperative clearance 05/01/2024 2:01 PM EDT CBC Lab Routine Preoperative clearance 05/01/2024 2:01 PM EDT DIFFERENTIAL, AUTOMATED Lab Routine Preoperative clearance 05/01/2024 2:01 PM EDT Scheduled Orders Name Type Priority Associated Diagnoses Orde r Schedule EKG EKG Routine Preoperative clearance Ordered: 05/01/2024 Scheduled Procedures Name Priority Associated Diagnoses Date/Ti [...] as of this encounter Visit Diagnoses Diagnosis Preoperative clearance- Primary Preoperative examination, unspecified documented in this encounter Care Teams Motor Vehicle Field Representative Relationship Specialty Start Date End Date Sophia Ramirez MD [address] [place] [address] [place] [phone] PCP - General Family Medicine 03/31/24 documented as of this encounter"
--- OUTSIDE RECORDS SUMMARY | 2024-08-04 02:26 | External Medical Summary ---
Author Name Unknown Address Unknown Organization [id number]:LABORATORY [facility] - [address] [facility] [address] [facility] [address] Laboratory Report Ordering Provider Test Date Status AMARILYS HESS 05/01/2024 14:01:49 Padmini l Observation Date Value Abnormality Reference (Units ) Status WBC, Total 05/01/2024 14:01:49 7.16 4.00-10.80 (K/uL) Final RBC 05/01/2024 14:01:49 4.46 3.85-5.15 (M/uL) Final Hemoglobin 05/01/2024 14:01:49 13.5 12.0-15.3 (g/dL) Final HCT 05/01/2024 14:01:49 40.5 36.0-45.2 (%) Final MCV 05/01/2024 14:01:49 90.8 81.5-97.5 (fL) Final MCH 05/01/2024 14:01:49 30.3 27.0-34.0 (pg) Final MCHC 05/01/2024 14:01:49 33.3 32.0-36.0 (g/dL) Final RDW 05/01/2024 14:01:49 13.2 11.5-15.5 (%) Final Platelets 05/01/2024 14:01:49 403 Above high normal 140-400 (K/uL) Final MPV 05/01/2024 14:01:49 10.2 6.6-11.1 (fL) Final Nucleated erythrocytes/100 leukocytes [Ratio] in Blood by Automated count 05/01/2024 14:01:49 0 <=0 (/100 WBCs) Final Performing Location LABORATORY [facility] - [address] [place] [address]
--- OUTSIDE RECORDS SUMMARY | 2024-08-04 02:26 | External Medical Summary | Summary of Care ---
Author Name Unknown Organization [facility] Address [address] [place] [address] Phone [phone] Care Team Providers Care Marshmallow Machine Operator Name Role Phone Sophia Ramirez MD Primary Care Provide r Encounter Details Date Type Department Care Team (Latest Contact Info) Description 04/28/2024 3:30 PM EDT Office Visit Neurosurgery, [place] [address] [place] [address] Richard Cazares MD [address] [place] [address] Osteoarthritis of thoracic spine with myelopathy* Allergies Active Allergy Reactions Criticality Noted Date [...] on file documented as of this encounter Progress Notes * Richard Cazares MD - 04/28/2024 3:29 PM EDT PROGRESS NOTE - Neurosurgery [facility] [place] [address] Name: Cecilia Perla Date: 04/28/2024 Time: 3:29 PM 63-year-old woman I am seeing in follow [...] was referred initially from the ER in [facility]. She endorses trouble walking since September. She [...] obtained a cervical MRI to fully evaluate the neuro axis. She was spondylosis in the cervical [...] benefit to some patients include: aqua therapy, career center director, acupuncture, yoga/Pilates, and massage therapy. For the [...] and requests to proceed. All questions answered. PAST MEDICAL HISTORY: Past [...] disorder, not elsewhere classified admitted at [facility] [place] 4 days in [...] performed by Rosa Hall DO at [facility] COLONOSCOPY, DIAGNOSTIC (RECTUM) 05/03/2021 normal repeat 10 years, performed by Jam Jones MD at [facility] CT CHEST WO CONTRAST 07/07/2017 6 mm [...] repeat 1 year MAMMOGRAM SCREENING-BILATERAL Bilateral 1988 [place] TENOTOMY PRQ ACHILLES TENDON SPX LOCAL ANES [...] 1997. Drug use: No Current Outpatient Medications: methIMAzole 5 MG Oral Tablet (Tapazole), Take 1 Tablet by mouth in the morning., Disp: 30 Tablet, Rfl: 5 Baclofen 20 MG Oral Tablet, Take 1 Tablet by mouth at bedtime as needed for Pain. As needed for muscle pain, Disp: 90 Tablet, Rfl: 0 Gabapentin 300 MG Oral Capsule (Neurontin), Take 1 Capsule by mouth in the morning and 1 Capsule before bedtime., Disp: 60 Capsule, Rfl: 5 Rosuvastatin Calcium 10 MG Oral [...] 2 ALLERGIES: No known drug allergy VITALS: LMP 09/25/2001 Richard Luna Neurosurgery This document was dictated using voice recognition software. Please excuse any errors. documented in this encounter Plan of Treatment Upcoming Encounters Date Type Department Care Team (Late st Contact Info) Description 05/12/2024 11:20 AM EDT [facility] [place] [address] [facility] [place] [address] [place], [address] [place] [address] 07/01/2024 10:40 AM EDT Office Visit Family Medicine [address] [place] [phone] Sophia Ramirez MD [address] [place] [address] [place] [address] 07/13/2024 1:00 PM EDT Office Visit Endocrinology, [place] [address] [place] [address] Nikhil Cruz CRNP [address] [place] [address] 08/06/2024 10:15 AM EDT Office Visit Orthopaedics [facility] [address] [place] [address] Trevor Palacio PA-C [address] [place] [address] 02/04/2025 2:30 PM EDT Imaging Radiology [address] [place] [address] Scheduled Orders Name Type Priority Associated Diagnoses Orde r Schedule XR SPINE SCOLIOSIS T AND L 1 VIEW Medical Imaging Routine Osteoarthritis of thoracic spine with myelopathy Ordered: 04/28/2024 XR LS SPINE FLEX AND EXT VIEWS ONLY Medical Imaging Routine Osteoarthritis of thoracic spine with myelopathy Ordered: 04/28/2024 Scheduled Procedures Name Priority Associated Diagnoses Date/Ti [...] Diagnoses Diagnosis Osteoarthritis of thoracic spine with myelopathy- Primary documented in this encounter Care Teams Marshmallow Machine Operator Relationship Specialty Start Date End Date Sophia Ramirez MD [address] [place] [address] [place] [address] PCP - General Family Medicine 03/31/24 documented as of this encounter
--- OUTSIDE RECORDS SUMMARY | 2024-08-04 02:26 | External Medical Summary ---
Author Name Unknown Address Unknown Organization K01:[facility] [place] [address] [place] [address] Laboratory Report Ordering Provider Test Date Status AMARILYS HESS 05/01/2024 14:01:49 Padmini l Observation Date Value Abnormality Reference (Units ) Status BUN 05/01/2024 14:01:49 18 6-20 (mg/dL) Final Creatinine 05/01/2024 14:01:49 0.8 0.5-1.0 (mg/dL) Final Glomerular filtration rate/1.73 sq M.predicted [Volume Rate/Area] in Serum, Plasma or Blood by Creatinine-based formula (CKD-EPI) 05/01/2024 14:01:49 80 >=60 (mL/min) Final eGFR is calculated based on the CKD-EPI 2020 equation Sodium 05/01/2024 14:01:49 144 135-146 (m mol/L) Final Potassium 05/01/2024 14:01:49 3.8 3.5-5.1 (m mol/L) Final Cl 05/01/2024 14:01:49 106 98-107 (mm ol/L) Final CO2 05/01/2024 14:01:49 28 22-32 (mmo l/L) Final Anion gap 05/01/2024 14:01:49 10 7-15 (mmol /L) Final Glucose 05/01/2024 14:01:49 114 70-120 (mg /dL) Final Calcium 05/01/2024 14:01:49 9.6 8.4-10.2 ( mg/dL) Final Performing Location [facility] [place] [address] [place] [address]
--- OUTSIDE RECORDS SUMMARY | 2024-08-04 02:26 | External Medical Summary | Summary of Care ---
Author Name Unknown Organization [facility] Address [address] [place] [address] Phone [phone] Care Team Providers Care Committee Member Name Role Phone Sophia Ramirez MD Primary Care Provide r Reason for Visit * Reason Onset Date Comments Advice 04/29/2024 Encounter Details Date Type Department Care Team (Late st Contact Info) Description 04/29/2024 Telephone Family Medicine [address] [phone] Sophia Ramirez MD [address] [place] [address] [place] [address] Advice Allergies Active Allergy [...] Encounter - Brisa Kent LPN - 04/29/2024 1:40 PM EDT The call was dropped. If pt calls back please make sure she is aware I scheduled her a pre op appt with Dr. Damon for Saturday at 1:00pm. If that time does not work for her, please reschedule. * Telephone Encounter - Shayna Herrera OSA - 04/29/2024 1:37 PM EDT Reason for patient's call: pt returning call to clinic nurse Caller was transferred to Brisa at the clinic. * Telephone Encounter - Brisa Kent LPN - 04/29/2024 10:57 AM EDT Left message for pt to return my call. If pt calls back please make sure she is aware I scheduled her a pre op appt with Dr. Damon for Saturday at 1:00pm. If that time does not work for her, please reschedule. * Telephone Encounter - Sophia Ramirez MD [...] 1:40 PM EDT Office Visit Family Medicine [address] [place] [phone] Sophia Ramirez MD [address] [place] [address] [place] [address] 07/01/2024 10:40 AM EDT Office Visit Family [address] [place] [address] Sophia Ramirez MD [address] [place] [address] [place] [address] 07/13/2024 1:00 PM EDT Office Visit Endocrinology, [place] [address] [place] [address] Nikhil Cruz CRNP [address] [place] [address] 08/06/2024 10:15 AM EDT Office Visit Orthopaedics [facility] [address] [place] [address] Trevor Palacio PA-C [address] [place] [address] 02/04/2025 2:30 PM EDT Imaging Radiology [address] [place] [address] Scheduled Procedures Name Priority Associated Diagnoses Date/Ti [...] filedocumented as of this encounter Care Teams Committee Member Relationship Specialty Start Date End Date Sophia Ramirez MD [address] [place] [address] [place] [phone] PCP - General Family Medicine 03/31/24 documented as of this encounter
--- OUTSIDE RECORDS SUMMARY | 2024-08-04 02:26 | External Medical Summary | Summary of Care ---
Author Name Unknown Organization [facility] Address [address] [place] [address] Phone [phone] Care Team Providers Care Tuckpointer Cleaner Caulker Name Role Phone Sophia Ramirez MD Primary Care Provide r Reason for Visit * Reason Onset Date Comments Advice 04/29/2024 Returning Call 04/29/2024 Encounter Details Date Type Department Care Team (Late st Contact Info) Description 04/29/2024 Telephone Family Medicine [address] [phone] Sophia Ramirez MD [address] [place] [address] [place] [phone] Advice; Returning Call Allergies Active Allergy Reactions Criticality Noted Date [...] encounter Miscellaneous Notes * Telephone Encounter - Oksana Rivera OSA - 04/29/2024 1:49 PM EDT Patient has been notified of the message. Patient has no further questions. * Telephone Encounter - Brisa Kent LPN [...] 1:40 PM EDT Office Visit Family Medicine [address] [place] [address] Sophia Ramirez MD [address] [place] [address] [place] [address] 07/01/2024 10:40 AM EDT Office Visit Family [address] [place] [address] Sophia Ramirez MD [address] [place] [address] [place] [address] 07/13/2024 1:00 PM EDT Office Visit Endocrinology, [place] [address] [place] [address] Nikhil Cruz CRNP [address] [place] [address] 08/06/2024 10:15 AM EDT Office Visit Orthopaedics [facility] [address] [place] [address] Trevor Palacio PA-C [address] [place] [address] 02/04/2025 2:30 PM EDT Imaging Radiology [address] [place] [address] Scheduled Procedures Name Priority Associated Diagnoses Date/Ti [...] filedocumented as of this encounter Care Teams Tuckpointer Cleaner Caulker Relationship Specialty Start Date End Date Sophia Ramirez MD [address] [place] [address] [place] [address] PCP - General Family Medicine 03/31/24 documented as of this encounter
--- OUTSIDE RECORDS SUMMARY | 2024-08-04 02:26 | External Medical Summary | Summary of Care ---
Author Name Unknown Organization [facility] Address [address] [place] [address] Phone [phone] Care Team Providers Care Senior Tax Specialist Name Role Phone Sophia Ramirez MD Primary Care Provide r Reason for Visit * Reason Onset Date Comments Test Results 04/17/2024 Unexpected or In determinate Result Encounter Details Date Type Department Care Team (Late st Contact Info) Description 04/17/2024 Telephone Laboratory, [place] [address] [place] [address] Richard Cazares MD [address] [place] [address] Test Results (Unexpected or Indeterminate [...] encounter Miscellaneous Notes * Telephone Encounter - Alejandra Waterman, supervisor fryer farm - 04/24/2024 11:38 AM EDT Patient calling to request MRI results Please call patient and advise Thank You, Alejandra Waterman, [facility] Jack Spinner III [facility] ([facility]) * Telephone Encounter - Robert Champion OSA - 04/17/2024 10:24 PM EDT Hello- The radiologist discovered an unexpected or indeterminate finding on Cecilia Perla ([id number]) and asks that you review the following [...] ensure this report is reviewed. Thank you, Robert Champion, TREE Client Service [facility] documented in this encounter Plan of Treatment Upcoming Encounters Date Type Department Care Team (Late st Contact Info) Description 05/12/2024 11:20 AM EDT Office Visit Neurology [facility] [address] [facility] [place] [address] Bishop Womack, [address] [facility] [place] [address] 07/01/2024 10:40 AM EDT Office Visit Family Medicine [address] [place] [phone] Sophia Ramirez MD [address] [place] [address] [place] [address] 07/13/2024 1:00 PM EDT Office [address], [address] [address] Nikhil Cruz CRNP [address] [facility] [place] [address] 08/06/2024 10:15 AM EDT Office Visit Orthopaedics [facility] [address] [place] [address] Trevor Palacio PA-C [address] [place] [address] 02/04/2025 2:30 PM EDT Imaging Radiology [address] [place] [address] Scheduled Procedures Name Priority Associated Diagnoses Date/Ti [...] filedocumented as of this encounter Care Teams Senior Tax Specialist Relationship Specialty Start Date End Date Sophia Ramirez MD [address] [place] [address] [place] [phone] PCP - General Family Medicine 03/31/24 documented as of this encounter
--- OUTSIDE RECORDS SUMMARY | 2024-08-04 02:27 | External Medical Summary | Summary of Care ---
Author Name Unknown Organization [facility] Address [address] [place] [address] Phone [phone] Care Team Providers Care Official Greeter Name Role Phone Sophia Ramirez MD Primary Care Provide r Reason for Visit * Reason Onset Date Comments Test Results 04/17/2024 Unexpected or In determinate Result Encounter Details Date Type Department Care Team (Late st Contact Info) Description 04/17/2024 Telephone Laboratory, [place] [address] [place] [address] Richard Cazares MD [address] [place] [address] Test Results (Unexpected or Indeterminate ... 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 Thank you, TREE Martinez Client Service [facility] documented in this encounter Plan of Treatment Upcoming Encounters Date Type Department Care Team (Late st Contact Info) Description 04/21/2024 11:20 AM EDT Office Visit Neurology [facility] [address] [facility] [place] [address] Bishop Womack, [address] [facility] [place] [address] 07/01/2024 10:40 AM EDT Office Visit Family Medicine [address] [phone] Sophia Ramirez MD [address] [place] [address] [place] [address] 07/13/2024 1:00 PM EDT Office Visit Endocrinology, [place] [address] [place] [address] Nikhil Cruz CRNP [address] [place] [address] 08/06/2024 10:15 AM EDT Office Visit Orthopaedics [facility] [address] [place] [address] Trevor Palacio PA-C [address] [place] [address] 02/04/2025 2:30 PM EDT Imaging Radiology [address] [place] [address] Scheduled Procedures Name Priority Associated Diagnoses Date/Ti [...] filedocumented as of this encounter Care Teams Official Greeter Relationship Specialty Start Date End Date Sophia Ramirez MD [address] [place] [address] [place] [address] PCP - General Family Medicine 03/31/24 documented as of this encounter
--- OUTSIDE RECORDS SUMMARY | 2024-08-04 02:27 | External Medical Summary | Summary of Care ---
Author Name Unknown Organization [facility] Address [address] [place] [address] Phone [phone] Care Team Providers Care Sheep Shearer Name Role Phone Sophia Ramirez MD Primary Care Provide r Reason for Visit * Reason Onset Date Comments Appointment 04/16/2024 Encounter Details Date Type Department Care Team (Late st Contact Info) Description 04/16/2024 Telephone Rad[address] [address] Romi Aaron, RT (M) Appointment Allergies Active Allergy Reactions Criticality Noted Date Comments No Known Drug Allergy 06/24/2001 documented as of this encounter (statuses as of 04/16/2024) Medications Medication Sig Dispensed Refills Start Date [...] as of this encounter (statuses as of 04/16/2024) Active Problems Problem Noted Date Diagnosed Date [...] as of this encounter (statuses as of 04/16/2024) Resolved Problems Problem Noted Date Diagnosed Date Resolved Date 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 documented in this encounter Plan of Treatment Upcoming Encounters Date Type Department Care Team (Late st Contact Info) Description 04/17/2024 11:45 AM EDT Imaging Radiology [address] [facility] [place] [address] 04/21/2024 11:20 AM EDT Office Visit Neurology [facility] [address] [place] [address] Bishop Womack, DO [address] [place] [address] 07/01/2024 10:40 AM EDT Office Visit Family Medicine [address] [place] [address] Sophia Ramirez MD [address] [place] [address] [place] [address] 07/13/2024 1:00 PM EDT Office Visit Endocrinology, [place] [address] [place] [address] Nikhil Cruz CRNP [address] [place] [address] 08/06/2024 10:15 AM EDT Office Visit Orthopaedics [facility] [address] [facility] [place] [address] Trevor Palacio PA-C 132 [facility] [place] [address] 02/04/2025 2:30 PM EDT Imaging Radiology [address] [place] [address] Scheduled Procedures Name Priority Associated Diagnoses Date/Ti [...] Additional history exists Lipid Panel 03/10/2029 03/10/2024, 1 07/2023, 01/01/2017 Colonoscopy 05/03/2031 05/03/2021, 07/2021, 01/10/2016, Additional [...] filedocumented as of this encounter Care Teams Sheep Shearer Relationship Specialty Start Date End Date Sophia Ramirez MD [address] [place] [address] [place] [phone] PCP - General Family Medicine 03/31/24 documented as of this encounter
--- OUTSIDE RECORDS SUMMARY | 2024-08-04 02:27 | External Medical Summary | Summary of Care ---
Author Name Unknown Organization [facility] Address [address] [place] [address] Phone [phone] Care Team Providers Care Tape Librarian Name Role Phone Sophia Ramirez MD Primary Care Provide r Reason for Visit * Reason Onset Date Comments Test Results 04/17/2024 Unexpected or In determinate Result Encounter Details Date Type Department Care Team (Late st Contact Info) Description 04/17/2024 Telephone Laboratory, [place] [address] [place] [address] Richard Cazares MD [address] [place] [address] Test Results (Unexpected or Indeterminate [...] Notes * Telephone Encounter - Alejandra Waterman, creative services manager - 04/24/2024 11:38 AM EDT Patient calling to request MRI results Please call patient and advise Thank You, Alejandra Waterman, [facility] Software Product Manager III [facility] ([facility]) * Telephone Encounter - Robert Champion OSA - 04/17/2024 10:24 PM EDT Hello- The radiologist discovered an unexpected or indeterminate finding on Cecilia Perla ([id number]) and asks that you review the following [...] Thank you, Robert Champion, TREE Client Service [facility] documented in this encounter Plan of Treatment Upcoming Encounters Date Type Department Care Team (Late st Contact Info) Description 05/12/2024 11:20 AM EDT Office Visit Neurology [facility] [address] [place] [address] Bishop Womack, [address] [place] [address] 07/01/2024 10:40 AM EDT Office Visit Family Medicine [address] [place] [address] Sophia Ramirez MD [address] [place] [address] [place] [address] 07/13/2024 1:00 PM EDT Office Visit Endocrinology, [address] [address] Nikhil Cruz CRNP [address] [facility] [place] [address] 08/06/2024 10:15 AM EDT Office Visit Orthopaedics [facility] [address] [place] [address] Trevor Palacio PA-C [address] [place] [address] 02/04/2025 2:30 PM EDT Imaging Radiology [address] [place] [address] Scheduled Procedures Name Priority Associated Diagnoses Date/Ti [...] filedocumented as of this encounter Care Teams Tape Librarian Relationship Specialty Start Date End Date Sophia Ramirez MD [address] [place] [address] [place] [phone] PCP - General Family Medicine 03/31/24 documented as of this encounter
[2024-08-04] MEDS: ACETAMINOPHEN 325 MG TAB PO PRN (04:55)
--- NOTE | 2024-08-04 06:34 | Ultrasound Report ---
LEFT LOWER EXTREMITY VENOUS DOPPLER CLINICAL HISTORY: left lower extremity edema and erythema. dvt? COMPARISON STUDY: Left lower extremity venous Doppler ultrasound April 16, 2024. TECHNIQUE: Sonography of the deep venous system of the left lower extremity was performed. Compressi on and augmentation were evaluated. FINDINGS: The left common femoral, superficial femoral and popliteal veins were compressible. Augmen tation was normal. Flow was shown within the deep calf vessels. IMPRESSION: No evidence of deep venous thrombus within the left lower extremity. ACT 112: Negative or not required by law. Electronically signed by: Reji Berg M.D. 08/04/2024 6:32 AM
--- NOTE | 2024-08-04 07:05 | XRay Report ---
XR tibia fibula LT 2V CLINICAL HISTORY: Left leg swelling; r/o gas COMPARISON: None FINDINGS: There are no fractures within the left tibia or fibula. No areas of bony erosion are ident ified. Anterior left lower leg soft tissue swelling is present. No soft tissue gas is identified. The re are moderate degenerative changes within the left knee. IMPRESSION: 1. Left lower leg soft tissue swelling. No soft tissue gas identified. 2. No fractures within the left tibia or fibula. No evidence for acute osteomyelitis. ACT 112: Negative or not required by law. Electronically signed by: Reji Berg M.D. 08/04/2024 7:03 AM
[2024-08-04 07:25] LABS: Basophils # (auto) 0.09 K/uL (0.00-0.20); Basophils % (auto) 0.6 %; Hematocrit (blood only) 31.4 % (37.0-47.0); Hemoglobin 10.2 g/dl (12.0-16.0); Immature Granulocytes # (auto) 0.08 K/uL (0.01-0.20); Immature Granulocytes % (auto) 0.5 %; Lymphocytes # (auto) 1.82 K/uL (1.20-3.40); Lymphocytes % (auto) 12.4 %; Mean Corpuscular Hemoglobin 27.8 pg (25.0-34.0); Mean Corpuscular Hgb Conc 32.5 g/dL (32.0-36.0); Mean Corpuscular Volume 85.6 fL (80.0-100.0); Mean Platelet Volume 9.7 fL (9.4-12.4); Monocytes # (auto) 1.66 K/uL (0.11-0.59); Monocytes % (auto) 11.3 %; Neutrophils # (auto) 10.76 K/uL (1.40-6.50); Neutrophils % (auto) 73.2 %; Platelet Count 352 K/uL (130-400); RDW Coefficient of Variation 13.7 % (11.5-14.5); RDW Standard Deviation 43.2 fL (36.4-46.3); Red Blood Count 3.67 M/uL (4.20-5.40); White Blood Count 14.71 K/ul (4.8-10.8)
[2024-08-04 07:46] LABS: BUN Creatinine Ratio 17.9 (10-20); Calcium 8.3 mg/dl (8.6-10.3); Est GFR (African American) 108.4 ml/min; Est GFR (Non-African American) 93.5 ml/min; Magnesium 1.6 mg/dl (1.7-2.4); Potassium 3.5 mmol/L (3.5-5.1)
[2024-08-04] MEDS: methIMAzole 5 MG TABLET PO SCH (08:14)
[2024-08-04] MEDS: LISINOPRIL/HCTZ 10/12.5MG TAB PO SCH (08:15)
[2024-08-04] MEDS: PROPRANOLOL HCL 60 MG LA CAP PO SCH (08:15)
[2024-08-04] MEDS: ASPIRIN 81 MG ECTAB PO SCH (08:16)
[2024-08-04] MEDS: OXYBUTYNIN CHLORIDE XL 5 MG TABCR PO SCH (08:16)
[2024-08-04] MEDS: ENOXAPARIN INJ 40 MG/0.4 ML SYR SQ SCH (08:19)
[2024-08-04] MEDS: VANCOMYCIN HCL 1,000 MG in SODIUM CHLORIDE 0.9% 250 ML IV SCH (09:17)
[2024-08-04] MEDS: MAGNESIUM OXIDE 400 MG TAB PO SCH (10:28)
--- NOTE | 2024-08-04 11:37 | Pharmacy Report ---
Pharmacy PK ABX Note - Date of Service August 04, 2024 - Assessment and Plan Assessment 63 year old F receiving vancomycin and zosyn for LLE cellulitis. PMHx significant for bug bite to left calf. Area developing erythema, pain. Patient recently had back surgery about 1-2 months ago. Denies any fevers. Blood cultures pending. Plan Vancomycin * Loading dose: 2250 mg IV x 1 * Maintenance dose: 1000 mg IV every 12 hours * Regimen is predicted to achieve target AUC/BOB of 400-600 mg/L.hr * Will obtain level if plan is to continue abx >48 hours Pharmacy will continue to follow and will adjust dose/frequency as necessary. Thank you. Pharmacy has transitioned to AUC monitoring for vancomycin. AUC/BOB is the preferred PK/PD target and is associated with decreased risk of nephrotoxicity compared to traditional trough targets.
--- NOTE | 2024-08-04 11:53 | Electrocardiogram Report ---
Test Reason : Blood Pressure : */* mmHG Vent. Rate : 98 BPM Atrial Rate : 98 BPM P-R Int : 170 ms QRS Dur : 88 ms QT Int : 368 ms P-R-T Axes : 49 11 52 degrees QTcB Int : 469 ms Normal sinus rhythm Possible Anterior infarct (cited on or before 16-Apr-2024) Abnormal ECG When compared with ECG of 16-Apr-2024 07:08, No significant change was found Confirmed by Maurice Morejon ([id number]) on 08/04/2024 11:53:25 AM Referred By: REFERRED SELF Confirmed By: Maurice Morejon
--- NOTE | 2024-08-04 14:33 | Hospitalist Progress Note ---
Date of Service August 04, 2024 Assessment & Plan (1) Cellulitis of left leg: Plan: 63-year-old female with past medical history significant for prediabetes, hyperlipidemia, allergic rhinitis, incidental pulmonary nodule, hypertension, overactive bladder, osteoarthrosis, chronic bilateral low back pain, myelopathy, postconcussion syndrome, lichen sclerosis, obesity, insomnia, hyperthyroidism comes because of left lower extremity cellulitis. Patient states she had a bug bite in the left calf region about a week ago she thinks it might be a spider bite. She developed small wound at the bite site. Also developed erythema spreading into the left leg below knee downwards. And having a lot of pain. And having pain while ambulating. As it is is getting worse she came to the ER today. Denies any fevers. About 6 to 7 weeks ago she had a back surgery in [place] and she is ambulating with the cane currently. Has mild headache. Vision is okay. No runny nose or sore throat. Appetite is okay. No chest pain or shortness of breath. No nausea. No abdominal pain. Normal bowel and bladder movements. Hemodynamics are okay currently. Resting comfortably. Cellulitis of LLE Bug bite Lyme negative Hemodynamics okay Afebrile Lactic acid 0.9 CRP 32 WBC 19 Received Vanco and Zosyn and clinda in the ER Will continue with Vanco and Zosyn Gentle fluids Follow cultures Will also follow Dopplers to rule out DVT-No DVT Will Follow the response Close monitor Prediabetes Will follow HbA1c levels Diabetic diet Hyperthyroidism On methimazole Follow TSH Hypertension On propranolol and lisinopril/hctz Will monitor Hyperlipidemia On statin Chronic back pain Recent back surgery pt/ot when stable Continue home pain medications DVT prophylaxis Lovenox Disposition Medical floor Full code Admission and Anticipated Discharge Date Admission Date: August 03, 2024 Subjective pt was seen in the AM. Leg swollen and red, tender. Denies fevers. Review of Systems Review of Systems: All systems reviewed & are unremarkable except as noted in Subjective Physical Exam Physical Exam: General: Alert, oriented. No acute distress Psych: Appropriate mood and affect HEENT: NC/AT CV: RRR Resp: Breath sounds clear bilaterally, no increased effort of breathing. Abdomen:Soft, nontender Extremities: LLE with edema and erythema Results & Data Results & Data Vital Signs (Past 12 Hours) Vital Signs Temp Pulse Resp BP Pulse Ox O2 Del Method 08/04/24 11:15 36.6 C 80 16 110/76 94 Room Air 08/04/24 08:13 88 116/76 95 Room Air 08/04/24 07:45 36.6 C 88 16 126/92 94 Room Air 08/04/24 07:43 Room Air
[2024-08-04] MEDS: ROSUVASTATIN CALCIUM 10 MG TAB PO SCH (20:16)
[2024-08-05] MEDS: GADOBUTROL 65ML VIAL IV ONE (01:47)
--- NOTE | 2024-08-05 05:53 | Magnetic Resonance Report ---
Exam(s): MRI EXTREMITY W/WO Contrast IV Amt: 9.5cc gadavist EXAM: MR Left Lower Extremity Without and With Intravenous Contrast, Tibia and Fibula CLINICAL HISTORY: Reason for exam: r/o osteomyelitis. TECHNIQUE: Multiplanar magnetic resonance images of the left tibia and fibula without and with intravenous contrast. CONTRAST: Patient received 9.5cc Gadavist of IV contrast COMPARISON: X-rays dated 08/03/2024. FINDINGS: Motion artifact degrades image quality limiting the exam. Bones/joints: No acute fracture. No dislocation. No bone marrow edema is noted. No gross bony destruction is seen. No abnormal contrast enhancement is noted. Soft tissues: There is soft tissue edema and swelling. There is a soft tissue wound posteriorly. Within the subcutaneous tissues posteriorly, there is a fluid collection measuring 4.1 x 1.3 x 4.7 cm. IMPRESSION: There is soft tissue edema and swelling. There is a soft tissue wound posteriorly. Within the subcutaneous tissues posteriorly, there is a fluid collection measuring 4.1 x 1.3 x 4.7 cm. This may represent an abscess. Electronically signed by: Edson Davis MD 08/05/24 05:52 AM
[2024-08-05 06:15] LABS: Basophils # (auto) 0.09 K/uL (0.00-0.20); Basophils % (auto) 0.7 %; Eosinophils # (auto) 0.46 K/uL (0.00-0.50); Eosinophils % (auto) 3.7 %; Hematocrit (blood only) 29.1 % (37.0-47.0); Hemoglobin 9.5 g/dl (12.0-16.0); Immature Granulocytes # (auto) 0.06 K/uL (0.01-0.20); Immature Granulocytes % (auto) 0.5 %; Lymphocytes # (auto) 1.86 K/uL (1.20-3.40); Lymphocytes % (auto) 15.1 %; Mean Corpuscular Hemoglobin 27.6 pg (25.0-34.0); Mean Corpuscular Hgb Conc 32.6 g/dL (32.0-36.0); Mean Corpuscular Volume 84.6 fL (80.0-100.0); Mean Platelet Volume 9.4 fL (9.4-12.4); Monocytes # (auto) 1.25 K/uL (0.11-0.59); Monocytes % (auto) 10.2 %; Neutrophils # (auto) 8.57 K/uL (1.40-6.50); Neutrophils % (auto) 69.8 %; Platelet Count 344 K/uL (130-400); RDW Coefficient of Variation 13.6 % (11.5-14.5); RDW Standard Deviation 42.3 fL (36.4-46.3); Red Blood Count 3.44 M/uL (4.20-5.40); White Blood Count 12.29 K/ul (4.8-10.8)
[2024-08-05 06:35] LABS: Albumin Globulin Ratio 1.1 (0.9-2); Albumin Level 3.1 gm/dl (3.4-5.0); BUN Creatinine Ratio 13.5 (10-20); Bilirubin,Total 0.4 mg/dl (0.2-1.0); Calcium 8.5 mg/dl (8.6-10.3); Est GFR (African American) 99.9 ml/min; Est GFR (Non-African American) 86.2 ml/min; Globulin 2.7 gm/dl (2.5-4.0); Potassium 3.5 mmol/L (3.5-5.1); Total Protein 5.8 gm/dl (6.0-8.3)
[2024-08-05 06:44] LABS: Thyroid Stimulating Hormone 0.415 uIu/ml (0.300-4.500)
[2024-08-05 06:59] LABS: Estimated Average Glucose 123 mg/dl; Hemoglobin A1C 5.9 % (4.5-5.6)
--- NOTE | 2024-08-05 09:51 | Surgery Consultation ---
Date of Consultation August 05, 2024 Assessment & Plan (1) Cellulitis of left leg: Her MRI images and results were personally viewed and interpreted by myself She has what appears to be a posterior left lower extremity abscess She did eat breakfast, will make n.p.o. after midnight Will plan on an I&D of a left leg abscess in the operating room tomorrow Will hold her Lovenox (2) Abscess of left leg: History of Present Illness Reason for Consultation: Left lower extremity abscess Attending Physician: Paola Rodríguez MD History of Present Illness This is a 63-year-old female for which we are consulted for a left lower extremity abscess/cellulitis. She states that about a week ago she developed pain in the posterior left leg. This did increase over that timeframe and began becoming reddened. She states there has been some seropurulent drainage from the area periodically. She denies any fevers or chills. She denies any trauma to the area. States the pain was sharp without radiation. No aggravating or relieving factors. Allergies Allergy/AdvReac Type Severity Reaction Status Date / Time No Known Allergies Allergy Unverified 08/03/24 20:39 Home Medications Medication Instructions Recorded Confirmed Type nortriptyline 50 mg capsule 50 mg PO HS 03/20/24 08/03/24 History propranolol 60 mg capsule,24 60 mg PO QAM 03/20/24 08/03/24 History hr,extended release rosuvastatin 10 mg tablet 10 mg PO HS 03/20/24 08/03/24 History tolterodine 2 mg capsule,extended 2 mg PO QAM 03/20/24 08/03/24 History release 24 hr acetaminophen 300 mg-codeine 30 mg 1 tab PO Q6H PRN Mild Pain (Scale 08/03/24 08/03/24 History tablet Score 1-4) aspirin 81 mg tablet,delayed 81 mg PO DAILY 08/03/24 08/03/24 History release celecoxib 200 mg capsule 200 mg PO DAILY 08/03/24 08/03/24 History gabapentin 300 mg capsule 300 mg PO BID 08/03/24 08/03/24 History lisinopril 10 1 tab PO DAILY 08/03/24 08/03/24 History mg-hydrochlorothiazide 12.5 mg tablet methimazole 5 mg tablet 5 mg PO QAM 08/03/24 08/03/24 History oxycodone 5 mg tablet 5 mg PO Q4H PRN Pain 08/03/24 08/03/24 History Patient History Social History Smoking Status: Never smoker Second Hand Exposure: No; Do You Dip or Chew Tobacco: No; Tobacco Cessation Education Requested by Patient: No Hx Alcohol Use: No Hx Substance Use: No Preferred Language: [place] Communication Ability: Effective Wood Polisher Required: No Beliefs That Will Affect Care: None Current Living Situation: Significant Other Current Living Situation Comment: boyfriend Feels Safe at Home: Yes Safety Concerns: Feels Safe At This Time Assistive Devices: Cane Review of Systems Constitutional: no fever and no chills Eyes: no blind spots and no corrective lenses Ear, Nose, Mouth, Throat: no ear pain and no hearing loss Respiratory: no cough and no dyspnea Cardiovascular: no chest pain and no dyspnea on exertion Gastrointestinal: no abdominal pain, no nausea and no constipation Genitourinary: no dysuria and no urinary urgency Musculoskeletal: no back pain and no neck pain Integumentary: + skin ulcer, + wounds and + erythema; n o acne, no sores and no dry skin Neurologic: no gait abnormality and no headache(s) Psychiatric: no behavioral changes and no depression Hematologic / Lymphatic: no easy bleeding and no easy bruising Physical Exam Constitutional: WD/WN, vitals as above Eyes: PERRL, conjunctivae normal, anicteric sclerae ENMT: external ear and nose normal, oropharynx normal Neck: trachea midline, no thyromegaly Respiratory: normal respiratory effort, lungs clear to auscultation Cardiovascular: RRR, no murmur, no edema Gastrointestinal (Abdomen): normal bowel sounds, soft, nontender, no hepatos plenomegaly Musculoskeletal: no cyanosis or clubbing, extremities motor strength 5/5 Skin: no rashes, warm and dry Left posterior calf with erythema and edema as well as fluctuance had a central portion of what appears to be some necrotic skin, tender to palpation, mild seropurulent drainage Neurologic: PERRL, EOMI, accommodation nl, no face palsy, no dysarthria Results & Data Vital Signs (Past 12 Hours) Vital Signs Temp Pulse Resp BP BP Pulse Ox O2 Del Method 08/05/24 08:23 98 H 117/76 08/05/24 07:46 87 08/05/24 07:45 Room Air 08/05/24 07:34 36.5 C 93 H 17 107/68 95 Room Air PG Care Time/CCT Total # of Minutes Spent Total Time Spent with Patient: Total time spent is greater than 50% in coordination of care (as documented) at patient's floor/unit and/or counseling patient: Coding Level of Care Code 25039 INT INP/OBS CARE 3/75MIN Diagnoses Cellulitis of left leg L03.116 Abscess of left leg L02.416
--- NOTE | 2024-08-05 18:11 | Hospitalist Progress Note ---
Date of Service August 05, 2024 Assessment & Plan (1) Cellulitis of left leg: Plan: Ms Perla is a 63-year-old female with past medical history significant for prediabetes, hyperlipidemia, allergic rhinitis, incidental pulmonary nodule, hypertension, overactive bladder, osteoarthrosis, chronic bilateral low back pain, myelopathy, postconcussion syndrome, lichen sclerosis, obesity, insomnia, hyperthyroidism comes because of left lower extremity cellulitis. Patient states she had a bug bite in the left calf region about a week ago she thinks it might be a spider bite. MRI obtained with large abscess noted. Surgery consulted. Plan for ID tomorrow #Cellulitis with abscess of LLE ?Bug bite Lyme negative Hemodynamics okay CRP 32,WBC 19 Received Vanco and Zosyn and clinda in the ER Continue Vanco and Zosyn BCx NGTD Eve consulted for MRI findings: ID tomorrow 08/06 #Prediabetes Will follow HbA1c levels Diabetic diet #Hyperthyroidism On methimazole Follow TSH #Hypertension On propranolol and lisinopril/hctz Will monitor #Hyperlipidemia On statin #Chronic back pain Recent back surgery pt/ot when stable Continue home pain medications DVT prophylaxis Lovenox Disposition Medical floor Full code Admission and Anticipated Discharge Date Admission Date: August 03, 2024 Subjective NAEO Reports some discomfort in LLE, but overall improved Physical Exam Constitutional: WD/WN, vitals as above Respiratory: normal respiratory effort, lungs clear to auscultation Musculoskeletal: left lower extremity with edema and erythema, though improved from line of demaraction still very tender Results & Data Results & Data Vital Signs (Past 12 Hours) Vital Signs Temp Pulse Resp BP BP Pulse Ox O2 Del Method 08/05/24 15:39 36.5 C 79 17 144/87 H 97 Room Air 08/05/24 08:23 98 H 117/76 08/05/24 07:46 87 08/05/24 07:45 Room Air 08/05/24 07:34 36.5 C 93 H 17 107/68 95 Room Air Laboratory Results Short CBC 08/05/24 Range/Units 05:58 WBC 12.29 H (4.8-10.8) K/ul Hgb 9.5 L (12.0-16.0) g/dl Hct 29.1 L (37.0-47.0) % Plt Count 344 (130-400) K/uL BMP 08/05/24 05:58 Sodium 139 Potassium 3.5 Chloride 106 Carbon Dioxide 25 BUN 10 Creatinine 0.74 Glucose 108 H Calcium 8.5 L Liver Function 08/05/24 Range/Units 05:58 Total Bilirubin 0.4 (0.2-1.0) mg/dl AST 18 (13-39) U/L ALT 18 (7-52) U/L Alkaline Phosphatase 121 H (34-104) U/L Albumin 3.1 L (3.4-5.0) gm/dl Medications Administered Home Medications Medication Instructions Recorded Confirmed Last Taken nortriptyline 50 mg capsule 50 mg PO HS 03/20/24 08/03/24 08/02/24 propranolol 60 mg capsule,24 60 mg PO [facility] 03/20/24 08/03/24 08/03/24 hr,extended release rosuvastatin 10 mg tablet 10 mg PO HS 03/20/24 08/03/24 08/02/24 tolterodine 2 mg capsule,extended 2 mg PO [facility] 03/20/24 08/03/24 08/03/24 release 24 hr acetaminophen 300 mg-codeine 30 mg 1 tab PO Q6H PRN Mild Pain (Scale 08/03/24 08/03/24 08/03/24 tablet Score 1-4) aspirin 81 mg tablet,delayed 81 mg PO DAILY 08/03/24 08/03/24 08/03/24 release celecoxib 200 mg capsule 200 mg PO DAILY 08/03/24 08/03/24 08/03/24 gabapentin 300 mg capsule 300 mg PO BID 08/03/24 08/03/24 08/03/24 lisinopril 10 1 tab PO DAILY 08/03/24 08/03/24 Unknown mg-hydrochlorothiazide 12.5 mg tablet methimazole 5 mg tablet 5 mg PO QAM 08/03/24 08/03/24 08/03/24 oxycodone 5 mg tablet 5 mg PO Q4H PRN Pain 08/03/24 08/03/24 08/03/24 Active Medications Generic Name Dose Route Start Last Admin Trade Name Freq PRN Reason Stop Dose Admin Acetaminophen 650 mg 08/03/24 23:34 08/05/24 00:01 Acetaminophen 325 Mg Tab PO 09/02/24 23:33 650 mg Q4H PRN Administration pain/fever Aspirin 81 mg 08/04/24 09:00 08/05/24 08:24 Aspirin 81 Mg Ectab PO 09/03/24 08:59 81 mg DAILY [facility] Administration Gabapentin 300 mg 08/03/24 23:34 08/05/24 08:24 Gabapentin 300 Mg Cap PO 09/02/24 23:33 300 mg BID [facility] Administration Lisinopril/HCTZ 1 tab 08/04/24 09:00 08/05/24 08:25 Lisinopril/Hctz 10/12.5mg Tab PO 09/03/24 08:59 1 tab DAILY [facility] Administration Piperacillin Sod/Tazobactam Sod 4.5 gm in 100 mls @ 25 mls/hr 08/04/24 01:00 08/05/24 16:59 Zosyn IV 08/11/24 00:59 25 mls/hr Q8H [facility] Administration Vancomycin HCl 1,000 mg/ 270 mls @ 200 mls/hr 08/04/24 09:00 08/05/24 10:00 Sodium Chloride IV 08/11/24 08:59 Infused Q12H [facility] Infusion Magnesium Oxide 400 mg 08/04/24 09:00 08/05/24 08:25 Magnesium Oxide 400 Mg Tab PO 09/03/24 08:59 400 mg QAM [facility] Administration Methimazole 5 mg 08/04/24 09:00 08/05/24 08:26 Methimazole 5 Mg Tablet PO 09/03/24 08:59 5 mg QAM [facility] Administration Nortriptyline HCl 50 mg 08/03/24 23:34 08/04/24 20:16 Nortriptyline Hcl 25 Mg Cap PO 09/02/24 23:33 50 mg HS [facility] Administration Oxybutynin Chloride 5 mg 08/04/24 09:00 08/05/24 08:24 Oxybutynin Chloride Xl 5 Mg Tabcr PO 09/03/24 08:59 5 mg QAM [facility] Administration Oxycodone HCl 5 mg 08/03/24 23:34 08/05/24 02:08 Oxycodone Hcl Ir 5 Mg Tab (Immediate Release) PO 08/17/24 23:33 5 mg Q4H PRN Administration Pain Propranolol HCl 60 mg 08/04/24 09:00 08/05/24 08:27 Propranolol Hcl 60 Mg La Cap PO 09/03/24 08:59 60 mg QAM [facility] Administration Rosuvastatin Calcium 10 mg 08/04/24 21:00 08/04/24 20:16 Rosuvastatin Calcium 10 Mg Tab PO 09/03/24 20:59 10 mg HS [facility] Administration
[2024-08-06 05:50] LABS: Hematocrit (blood only) 31.8 % (37.0-47.0); Hemoglobin 10.5 g/dl (12.0-16.0); Mean Corpuscular Hemoglobin 27.6 pg (25.0-34.0); Mean Corpuscular Volume 83.7 fL (80.0-100.0); Mean Platelet Volume 9.4 fL (9.4-12.4); Platelet Count 435 K/uL (130-400); RDW Coefficient of Variation 13.5 % (11.5-14.5); RDW Standard Deviation 41.2 fL (36.4-46.3); White Blood Count 9.83 K/ul (4.8-10.8)
[2024-08-06 06:02] LABS: Creatinine Clr Calc Pharmacy 84.9 ml/min; Est GFR (African American) 98.3 ml/min; Est GFR (Non-African American) 84.8 ml/min; Potassium 3.4 mmol/L (3.5-5.1)
[2024-08-06] MEDS: LACTATED RINGER'S 1,000 ML IV SCH (06:39)
[2024-08-06] MEDS ORDERED: ePHEDrine sulfate 50 MG/ML AMP IV PRN (06:55)
[2024-08-06] MEDS ORDERED: HYDROmorphone INJ 2 MG/ML SYR/VIAL IV PRN (06:55)
[2024-08-06] MEDS ORDERED: ATROPINE SULFATE 0.1 MG/ML 10ML SYR IV PRN (06:55)
[2024-08-06] MEDS ORDERED: PROMETHAZINE HCL 6.25 MG in SODIUM CHLORIDE 0.9% 50 ML IV PRN (06:55)
--- NOTE | 2024-08-06 06:55 | Anesthesiology Consultation ---
Date of Service August 06, 2024 Assessment & Plan ASA ASA2 Proposed Anesthesia Anesthesia Type: General Risk / Benefits Reviewed With: PT / POA / Parent / Guardian, Accepts Plan and Informed Consent Obtained History Surgery Operation Date: 08/06/24 07:15 Proposed Procedures p Incision and Drainage of Left Lower Extremity - Basilio Lobo, Height/Weight Height: 5 ft 3 in Weight: 96.5 kg Allergies Allergy/AdvReac Type Severity Reaction Status Date / Time No Known Allergies Allergy Unverified 08/03/24 20:39 Medications Home Medications Medication Instructions Recorded Confirmed Last Taken nortriptyline 50 mg capsule 50 mg PO HS 03/20/24 08/03/24 08/02/24 propranolol 60 mg capsule,24 60 mg PO QAM 03/20/24 08/03/24 08/03/24 hr,extended release rosuvastatin 10 mg tablet 10 mg PO HS 03/20/24 08/03/24 08/02/24 tolterodine 2 mg capsule,extended 2 mg PO QAM 03/20/24 08/03/24 08/03/24 release 24 hr acetaminophen 300 mg-codeine 30 mg 1 tab PO Q6H PRN Mild Pain (Scale 08/03/24 08/03/24 08/03/24 tablet Score 1-4) aspirin 81 mg tablet,delayed 81 mg PO DAILY 08/03/24 08/03/24 08/03/24 release celecoxib 200 mg capsule 200 mg PO DAILY 08/03/24 08/03/24 08/03/24 gabapentin 300 mg capsule 300 mg PO BID 08/03/24 08/03/24 08/03/24 lisinopril 10 1 tab PO DAILY 08/03/24 08/03/24 Unknown mg-hydrochlorothiazide 12.5 mg tablet methimazole 5 mg tablet 5 mg PO QAM 08/03/24 08/03/24 08/03/24 oxycodone 5 mg tablet 5 mg PO Q4H PRN Pain 08/03/24 08/03/24 08/03/24 Active Medications Generic Name Dose Route Start Last Admin Trade Name Freq PRN Reason Stop Dose Admin Acetaminophen 650 mg 08/03/24 23:34 08/05/24 00:01 Acetaminophen 325 Mg Tab PO 09/02/24 23:33 650 mg Q4H PRN Administration pain/fever Aspirin 81 mg 08/04/24 09:00 08/05/24 08:24 Aspirin 81 Mg Ectab PO 09/03/24 08:59 81 mg DAILY [facility] Administration Gabapentin 300 mg 08/03/24 23:34 08/05/24 20:20 Gabapentin 300 Mg Cap PO 09/02/24 23:33 300 mg BID [facility] Administration Lisinopril/HCTZ 1 tab 08/04/24 09:00 08/05/24 08:25 Lisinopril/Hctz 10/12.5mg Tab PO 09/03/24 08:59 1 tab DAILY [facility] Administration Piperacillin Sod/Tazobactam Sod 4.5 gm in 100 mls @ 25 mls/hr 08/04/24 01:00 08/06/24 05:00 Zosyn IV 08/11/24 00:59 Infused Q8H [facility] Infusion Vancomycin HCl 1,000 mg/ 270 mls @ 200 mls/hr 08/04/24 09:00 08/05/24 22:31 Sodium Chloride IV 08/11/24 08:59 Infused Q12H [facility] Infusion Lactated Ringer's 1,000 mls @ 15 mls/hr 08/06/24 06:45 08/06/24 06:39 Lr IV 09/05/24 06:44 15 mls/hr .Q24H [facility] Administration Magnesium Oxide 400 mg 08/04/24 09:00 08/05/24 08:25 Magnesium Oxide 400 Mg Tab PO 09/03/24 08:59 400 mg QAM [facility] Administration Methimazole 5 mg 08/04/24 09:00 08/05/24 08:26 Methimazole 5 Mg Tablet PO 09/03/24 08:59 5 mg QAM [facility] Administration Nortriptyline HCl 50 mg 08/03/24 23:34 08/05/24 20:20 Nortriptyline Hcl 25 Mg Cap PO 09/02/24 23:33 50 mg HS [facility] Administration Oxybutynin Chloride 5 mg 08/04/24 09:00 08/05/24 08:24 Oxybutynin Chloride Xl 5 Mg Tabcr PO 09/03/24 08:59 5 mg QAM [facility] Administration Oxycodone HCl 5 mg 08/03/24 23:34 08/05/24 02:08 Oxycodone Hcl Ir 5 Mg Tab (Immediate Release) PO 08/17/24 23:33 5 mg Q4H PRN Administration Pain Propranolol HCl 60 mg 08/04/24 09:00 08/05/24 08:27 Propranolol Hcl 60 Mg La Cap PO 09/03/24 08:59 60 mg QAM [facility] Administration Rosuvastatin Calcium 10 mg 08/04/24 21:00 08/05/24 20:20 Rosuvastatin Calcium 10 Mg Tab PO 09/03/24 20:59 10 mg HS [facility] Administration NPO Date Last Intake of Fluids: 08/05/24 Time Last Intake of Fluids: 22:00 Date Last Intake of Solids: 08/05/24 Time Last Intake of Solids: 17:00 Exercise / Class Metabolic Activity II 4-5 Yardwork/Stairs/Walk up hill Past Anesthesia History No Hx of Anesthesia Complications and No Family Hx of Anesthesia Complications History of PONV No Hx of PONV and No Hx of Motion Sickness Social History Smoking Status: Never smoker Do You Dip or Chew Tobacco: No Hx Alcohol Use: No Hx Substance Use: No substance use type: does not use Physical Exam Vital Signs Last Vital Signs Temp 37.1 C 08/06/24 06:28 Pulse 88 08/06/24 06:28 Resp 20 08/06/24 06:28 BP 145/100 H 08/06/24 06:28 Pulse Ox 98 08/06/24 06:28 O2 Del Method Room Air 08/06/24 06:28 ENMT Mouth: + dentition abnormality and + edentulous (upper edentulous; lower few remaining teeth; none loose) Thyromental Distance: > or= 3.5 Finger Breadths Mallampati Class: III Neck normal visual inspection Respiratory normal respiratory effort; no respiratory distress Auscultation: lungs clear to auscultation bilaterally Cardiovascular Rate/Rhythm: regular rate and regular rhythm Heart Sounds: no murmur Musculoskeletal Spine: normal cervical ROM Psychiatric Orientation: alert and oriented x 3 Testing Laboratory Results 08/06/24 05:24 08/06/24 05:24 Hemoglobin A1c 5.9 % (4.5-5.6) H 08/05/24 05:58 08/03/24 19:15 Aerobic Blood Culture - Preliminary Blood No growth in Aerobic bottle after 48 hours. Anaerobic Blood Culture - Preliminary No growth in Anaerobic bottle after 48 hours. Day of Procedure Evaluation. Date of Surgery August 06, 2024 Height/Weight Height: 5 ft 3 in Weight: 96.5 kg Vital Signs Last Vital Signs Temp 37.1 C 08/06/24 06:28 Pulse 88 08/06/24 06:28 Resp 20 08/06/24 06:28 BP 145/100 H 08/06/24 06:28 Pulse Ox 98 08/06/24 06:28 O2 Del Method Room Air 08/06/24 06:28 Allergies Allergy/AdvReac Type Severity Reaction Status Date / Time No Known Allergies Allergy Unverified 08/03/24 20:39 Medications Home Medications Medication Instructions Recorded Confirmed Last Taken nortriptyline 50 mg capsule 50 mg PO HS 03/20/24 08/03/24 08/02/24 propranolol 60 mg capsule,24 60 mg PO QAM 03/20/24 08/03/24 08/03/24 hr,extended release rosuvastatin 10 mg tablet 10 mg PO HS 03/20/24 08/03/24 08/02/24 tolterodine 2 mg capsule,extended 2 mg PO QAM 03/20/24 08/03/24 08/03/24 release 24 hr acetaminophen 300 mg-codeine 30 mg 1 tab PO Q6H PRN Mild Pain (Scale 08/03/24 08/03/24 08/03/24 tablet Score 1-4) aspirin 81 mg tablet,delayed 81 mg PO DAILY 08/03/24 08/03/24 08/03/24 release celecoxib 200 mg capsule 200 mg PO DAILY 08/03/24 08/03/24 08/03/24 gabapentin 300 mg capsule 300 mg PO BID 08/03/24 08/03/24 08/03/24 lisinopril 10 1 tab PO DAILY 08/03/24 08/03/24 Unknown mg-hydrochlorothiazide 12.5 mg tablet methimazole 5 mg tablet 5 mg PO QAM 08/03/24 08/03/24 08/03/24 oxycodone 5 mg tablet 5 mg PO Q4H PRN Pain 08/03/24 08/03/24 08/03/24 Active Medications Generic Name Dose Route Start Last Admin Trade Name Freq PRN Reason Stop Dose Admin Acetaminophen 650 mg 08/03/24 23:34 08/05/24 00:01 Acetaminophen 325 Mg Tab PO 09/02/24 23:33 650 mg Q4H PRN Administration pain/fever Aspirin 81 mg 08/04/24 09:00 08/05/24 08:24 Aspirin 81 Mg Ectab PO 09/03/24 08:59 81 mg DAILY [facility] Administration Gabapentin 300 mg 08/03/24 23:34 08/05/24 20:20 Gabapentin 300 Mg Cap PO 09/02/24 23:33 300 mg BID [facility] Administration Lisinopril/HCTZ 1 tab 08/04/24 09:00 08/05/24 08:25 Lisinopril/Hctz /12.5mg Tab PO 09/03/24 08:59 1 tab DAILY [facility] Administration Piperacillin Sod/Tazobactam Sod 4.5 gm in 100 mls @ 25 mls/hr 08/04/24 01:00 08/06/24 05:00 Zosyn IV 08/11/24 00:59 Infused Q8H [facility] Infusion Vancomycin HCl 1,000 mg/ 270 mls @ 200 mls/hr 08/04/24 09:00 08/05/24 22:31 Sodium Chloride IV 08/11/24 08:59 Infused Q12H [facility] Infusion Lactated Ringer's 1,000 mls @ 15 mls/hr 08/06/24 06:45 08/06/24 06:39 Lr IV 09/05/24 06:44 15 mls/hr .Q24H [facility] Administration Magnesium Oxide 400 mg 08/04/24 09:00 08/05/24 08:25 Magnesium Oxide 400 Mg Tab PO 09/03/24 08:59 400 mg QAM [facility] Administration Methimazole 5 mg 08/04/24 09:00 08/05/24 08:26 Methimazole 5 Mg Tablet PO 09/03/24 08:59 5 mg QAM [facility] Administration Nortriptyline HCl 50 mg 08/03/24 23:34 08/05/24 20:20 Nortriptyline Hcl 25 Mg Cap PO 09/02/24 23:33 50 mg HS [facility] Administration Oxybutynin Chloride 5 mg 08/04/24 09:00 08/05/24 08:24 Oxybutynin Chloride Xl 5 Mg Tabcr PO 09/03/24 08:59 5 mg QAM [facility] Administration Oxycodone HCl 5 mg 08/03/24 23:34 08/05/24 02:08 Oxycodone Hcl Ir 5 Mg Tab (Immediate Release) PO 08/17/24 23:33 5 mg Q4H PRN Administration Pain Propranolol HCl 60 mg 08/04/24 09:00 08/05/24 08:27 Propranolol Hcl 60 Mg La Cap PO 09/03/24 08:59 60 mg QAM [facility] Administration Rosuvastatin Calcium 10 mg 08/04/24 21:00 08/05/24 20:20 Rosuvastatin Calcium 10 Mg Tab PO 09/03/24 20:59 10 mg HS [facility] Administration Past Anesthesia History No Hx of Anesthesia Complications and No Family Hx of Anesthesia Complications History of PONV No Hx of PONV and No Hx of Motion Sickness NPO Date Last Intake of Fluids: 08/05/24 Time Last Intake of Fluids: 22:00 Date Last Intake of Solids: 08/05/24 Time Last Intake of Solids: 17:00 Home Medications Home Medications Medication Instructions Recorded Confirmed Last Taken nortriptyline 50 mg capsule 50 mg PO HS 03/20/24 08/03/24 08/02/24 propranolol 60 mg capsule,24 60 mg PO QAM 03/20/24 08/03/24 08/03/24 hr,extended release rosuvastatin 10 mg tablet 10 mg PO HS 03/20/24 08/03/24 08/02/24 tolterodine 2 mg capsule,extended 2 mg PO QAM 03/20/24 08/03/24 08/03/24 release 24 hr acetaminophen 300 mg-codeine 30 mg 1 tab PO Q6H PRN Mild Pain (Scale 08/03/24 08/03/24 08/03/24 tablet Score 1-4) aspirin 81 mg tablet,delayed 81 mg PO DAILY 08/03/24 08/03/24 08/03/24 release celecoxib 200 mg capsule 200 mg PO DAILY 08/03/24 08/03/24 08/03/24 gabapentin 300 mg capsule 300 mg PO BID 08/03/24 08/03/24 08/03/24 lisinopril 10 1 tab PO DAILY 08/03/24 08/03/24 Unknown mg-hydrochlorothiazide 12.5 mg tablet methimazole 5 mg tablet 5 mg PO QAM 08/03/24 08/03/24 08/03/24 oxycodone 5 mg tablet 5 mg PO Q4H PRN Pain 08/03/24 08/03/24 08/03/24 Active Medications Generic Name Dose Route Start Last Admin Trade Name Benjamin PRN Reason Stop Dose Admin Acetaminophen 650 mg 08/03/24 23:34 08/05/24 00:01 Acetaminophen 325 Mg Tab PO 09/02/24 23:33 650 mg Q4H PRN Administration pain/fever Aspirin 81 mg 08/04/24 09:00 08/05/24 08:24 Aspirin 81 Mg Ectab PO 09/03/24 08:59 81 mg DAILY [facility] Administration Gabapentin 300 mg 08/03/24 23:34 08/05/24 20:20 Gabapentin 300 Mg Cap PO 09/02/24 23:33 300 mg BID [facility] Administration Lisinopril/HCTZ 1 tab 08/04/24 09:00 08/05/24 08:25 Lisinopril/Hctz 10/12.5mg Tab PO 09/03/24 08:59 1 tab DAILY [facility] Administration Piperacillin Sod/Tazobactam Sod 4.5 gm in 100 mls @ 25 mls/hr 08/04/24 01:00 08/06/24 05:00 Zosyn IV 08/11/24 00:59 Infused Q8H [facility] Infusion Vancomycin HCl 1,000 mg/ 270 mls @ 200 mls/hr 08/04/24 09:00 08/05/24 22:31 Sodium Chloride IV 08/11/24 08:59 Infused Q12H [facility] Infusion Lactated Ringer's 1,000 mls @ 15 mls/hr 08/06/24 06:45 08/06/24 06:39 Lr IV 09/05/24 06:44 15 mls/hr .Q24H [facility] Administration Magnesium Oxide 400 mg 08/04/24 09:00 08/05/24 08:25 Magnesium Oxide 400 Mg Tab PO 09/03/24 08:59 400 mg QAM [facility] Administration Methimazole 5 mg 08/04/24 09:00 08/05/24 08:26 Methimazole 5 Mg Tablet PO 09/03/24 08:59 5 mg QAM [facility] Administration Nortriptyline HCl 50 mg 08/03/24 23:34 08/05/24 20:20 Nortriptyline Hcl 25 Mg Cap PO 09/02/24 23:33 50 mg HS [facility] Administration Oxybutynin Chloride 5 mg 08/04/24 09:00 08/05/24 08:24 Oxybutynin Chloride Xl 5 Mg Tabcr PO 09/03/24 08:59 5 mg QAM [facility] Administration Oxycodone HCl 5 mg 08/03/24 23:34 08/05/24 02:08 Oxycodone Hcl Ir 5 Mg Tab (Immediate Release) PO 08/17/24 23:33 5 mg Q4H PRN Administration Pain Propranolol HCl 60 mg 08/04/24 09:00 08/05/24 08:27 Propranolol Hcl 60 Mg La Cap PO 09/03/24 08:59 60 mg QAM [facility] Administration Rosuvastatin Calcium 10 mg 08/04/24 21:00 08/05/24 20:20 Rosuvastatin Calcium 10 Mg Tab PO 09/03/24 20:59 10 mg HS [facility] Administration Exercise / Class Metabolic Activity Metabolic Activity: II 4-5 Yardwork/Stairs/Walk up hill Physical Exam Mouth: + dentition abnormality and + edentulous (upper edentulous; lower few remaining teeth; none loose) Thyromental Distance: > or= 3.5 Finger Breadths Mallampati Class: III Neck: + visual inspection normal Respiratory: + respiratory effort normal and + clear to auscultation bilaterally; no respiratory distress Cardiovascular: + regular rate and + regular rhythm; no murmur Musculoskeletal: no limited cervical ROM Psychiatric: + alert and + oriented x 3 ASA ASA2 Proposed Anesthesia Proposed Anesthesia: General Risk / Benefits Reviewed With: PT / POA / Parent / Guardian, Accepts Plan and Informed Consent Obtained
[2024-08-06] MEDS ORDERED: PROPOFOL IV EMULSION 10 MG/ML 20 ML VIAL IV ONE (06:57)
[2024-08-06] MEDS ORDERED: ONDANSETRON INJ 2 MG/ML 2 ML VIAL ONE (06:57)
[2024-08-06] MEDS ORDERED: DEXAMETHASONE SOD INJ 4 MG/ML VIAL ONE (06:57)
[2024-08-06] MEDS ORDERED: LIDOCAINE 2% 2 ML VIAL/AMP(20MG/ML) INFIL ONE (06:57)
[2024-08-06] MEDS ORDERED: MIDAZOLAM HCL 1 MG/ML 2ML VIAL ONE (06:58)
[2024-08-06] MEDS ORDERED: fentaNYL citrate PF 100 MCG/2 ML VIAL ONE (06:58)
--- NOTE | 2024-08-06 07:08 | Surgery Progress Note ---
Date of Service August 06, 2024 Assessment & Plan (1) Abscess of left leg: Plan: Will proceed with incision and drainage of left lower extremity abscess today Consent was obtained, risks discussed including bleeding, infection, nonhealing wound Admission and Anticipated Discharge Date Admission Date: August 03, 2024 Subjective Patient seen and examined. No acute events overnight. Afebrile. Review of Systems Constitutional: no fever and no chills Eyes: no blind spots and no corrective lenses Ear, Nose, Mouth, Throat: no ear pain and no hearing loss Respiratory: no cough and no dyspnea Cardiovascular: no chest pain and no dyspnea on exertion Gastrointestinal: no abdominal pain, no nausea and no constipation Genitourinary: no dysuria and no urinary urgency Musculoskeletal: no back pain and no neck pain Integumentary: + skin ulcer, + wounds and + erythema; n o acne, no sores and no dry skin Neurologic: no gait abnormality and no headache(s) Psychiatric: no behavioral changes and no depression Hematologic / Lymphatic: no easy bleeding and no easy bruising Physical Exam Constitutional: WD/WN, vitals as above Eyes: PERRL, conjunctivae normal, anicteric sclerae ENMT: external ear and nose normal, oropharynx normal Neck: trachea midline, no thyromegaly Respiratory: normal respiratory effort, lungs clear to auscultation Cardiovascular: RRR, no murmur, no edema Gastrointestinal (Abdomen): normal bowel sounds, soft, nontender, no hepatosplenomegaly Musculoskeletal: no cyanosis or clubbing, extremities motor strength 5/5 Skin: no rashes, warm and dry Left posterior calf with erythema and edema as well as fluctuance had a central portion of what appears to be some necrotic skin, tender to palpation, mild seropurulent drainage Neurologic: PERRL, EOMI, accommodation nl, no face palsy, no dysarthria Results & Data Vital Signs (Past 12 Hours) Vital Signs Temp Pulse Resp BP Pulse Ox O2 Del Method 08/06/24 06:28 37.1 C 88 20 145/100 H 98 Room Air 08/05/24 20:15 Room Air 08/05/24 20:15 36.8 C 90 18 164/96 H 95 Room Air PG Care Time/CCT Total # of Minutes Spent Total Time Spent with Patient: Total time spent is greater than 50% in coordination of care (as documented) at patient's floor/unit and/or counseling patient: Coding Level of Care Code 22082 SUB INP/OBS CARE 12/19MIN Diagnoses Abscess of left leg L02.416
[2024-08-06] MEDS: BUPIVACAINE 0.5 % 5 MG/1 ML MPF 30ML VIAL ONE (07:40)
--- NOTE | 2024-08-06 07:43 | Post Operative Brief Note ---
PG Immediate Post Op with CF Date of Surgery August 06, 2024 Pre & Post Diagnosis Operation Date: 08/06/24 07:15 Pre-Op Diagnosis: Left Lower Extremity Abscess Post-Op Diagnosis: Left Lower Extremity Abscess I identified the patient and participated in the time-out.: Yes Procedure Operation Date: 08/06/24 07:15 Actual Procedures p Incision and Drainage of Left Lower Extremity Abscess(Not Applicable) - Basilio Lobo DO Surgeon Basilio Lobo DO Dining Service Supervisor Zack SALEH Estimated Blood Loss 5 Findings Consistent with Post-Op Diagnosis Specimens Specimen Description: Culture #1: Left Lower Extremity Abscess Anesthesia Type General Complications none Disposition Disposition: Recovery Room
--- NOTE | 2024-08-06 07:45 | Operative Report ---
PG Post Operative Report Pre & Post Diagnosis Operation Date: 08/06/24 07:15 Pre-Op Diagnosis: Left Lower Extremity Abscess Post-Op Diagnosis: Left Lower Extremity Abscess I identified the patient and participated in the time-out.: Yes Procedure Operation Date: 08/06/24 07:15 Actual Procedures p Incision and Drainage of Left Lower Extremity Abscess(Not Applicable) - Basilio Lobo DO Surgeon Basilio Lobo DO [place] Laborer Zack SALEH Estimated Blood Loss 5 Findings Consistent with Post-Op Diagnosis Specimens Left lower extremity abscess fluid for culture Drains None Anesthesia Type General Complications none Disposition Disposition: Recovery Room Indications 63 yo female with left lower extremity abscess Description of Procedure The patient was brought to the OR and placed in the supine position. At this time she underwent General LMA anesthesia without issue. She was given appropriate pre-operative antibiotics. She was then placed in the right lateral decubitus position. The left lower extremity was prepped and draped in the usual sterile fashion. A timeout was called. The procedure was verified as Incision and drainage of left lower extremity abscess. Surgical, anesthesia and nursing teams agreed and the procedure was begun. After injection of 0.5% Marcaine with epinephrine, an longitudinal elliptical incision was made directly over the most fluctuant area of abscess using a #15 blade scalpel in order to excise the necrotic skin overlying the abscess cavity. Purulent fluid was encountered. Wide drainage was ensured. Culture was taken. All loculations were broken up bluntly. At this time the incision was irrigated until clear. Hemostasis was achieved using electrocautery. Hemostasis was complete. The incision was packed with a half-inch iodoform packing. Sterile dressing was applied. The patient was awakened from anesthesia and taking to PACU having remained stable throughout the entire case. All needle and sponge counts correct x 2. The nurse practitioner was present and scrubbed for the entire case. She was essential in positioning, prepping and draping the patient, retraction exposure and placement of dressings. I attest to the content of the Intraoperative Record and any orders documented therein. Any exceptions are noted below.
--- NOTE | 2024-08-06 09:09 | Pharmacy Report ---
Pharmacy PK ABX Note - Date of Service August 06, 2024 - Assessment and Plan Assessment 08/06 * Random vancomycin level came back this AM at ~13 mcg/ml - current vancomycin dosing predicted to achieve goal AUC, therefore will continue current regimen. Patient did have I&D done of leg this AM. 08/04 * 63 year old F receiving vancomycin and zosyn for LLE cellulitis. PMHx significant for bug bite to left calf. Area developing erythema, pain. Patient recently had back surgery about 1-2 months ago. Denies any fevers. Blood cultures pending. Plan Vancomycin * Continue vancomycin 1000 mg iv q 12 hours * Awaiting I&D culture results Pharmacy will continue to follow and will adjust dose/frequency as necessary. Thank you. Pharmacy has transitioned to AUC monitoring for vancomycin. AUC/BOB is the preferred PK/PD target and is associated with decreased risk of nephrotoxicity compared to traditional trough targets.
[2024-08-06] MEDS: VANCOMYCIN LEVEL ONE (09:11)
--- NOTE | 2024-08-06 12:34 | Hospitalist Progress Note ---
Date of Service August 06, 2024 Assessment & Plan (1) Cellulitis of left leg: Plan: Ms Perla is a 63-year-old female with past medical history significant for prediabetes, hyperlipidemia, allergic rhinitis, incidental pulmonary nodule, hypertension, overactive bladder, osteoarthrosis, chronic bilateral low back pain, myelopathy, postconcussion syndrome, lichen sclerosis, obesity, insomnia, hyperthyroidism comes because of left lower extremity cellulitis. Patient states she had a bug bite in the left calf region about a week ago she thinks it might be a spider bite. MRI obtained with large abscess noted. Surgery consulted and patient underwent I&D on 08/06 Plan to undergo PT eval and await cultures for final antibiotic regimen #Cellulitis with abscess of LLE ?Bug bite Lyme negative Hemodynamics okay CRP 32,WBC 19 Received Vanco and Zosyn and clinda in the ER Continue Vanco and Zosyn BCx NGTD Surgery consulted for MRI findings:s/p I& D of abscess on 08/06 -GPC seen PT/OT ordered #Normocytic anemia Baseline appears to be 13-14 prior to thoracic decompression, 11.6 post operatively no overt bleeding on exam Anemia labs in am #Prediabetes a1c 5.9 Diabetic diet #Hyperthyroidism On methimazole TSH 0.4 #Hypertension On propranolol and lisinopril/hctz Will monitor #Hyperlipidemia On statin #Thoracic Myelopathy s/p decompression 05/11/2024 Dr Cazares #Chronic back pain Recent back surgery PT/OT ordered Continue home pain medications DVT prophylaxis Lovenox Disposition Medical floor Full code Admission and Anticipated Discharge Date Admission Date: August 03, 2024 Subjective evaluated at bedside s/p I&D Denies any acute post op pain Reports otherwise feeling great Agreeable to PT to ensure safety at home Physical Exam Constitutional: WD/WN, vitals as above Respiratory: normal respiratory effort, lungs clear to auscultation Skin: LLE wrapped in kerlex s/p procedure, CDI, no erythema noted around periphery of bandage Results & Data Results & Data Vital Signs (Past 12 Hours) Vital Signs Temp Pulse Pulse Resp BP BP Pulse Ox 08/06/24 11:40 36.7 C 95 H 16 142/84 H 95 08/06/24 10:54 08/06/24 10:32 36.8 C 90 17 122/78 95 08/06/24 09:40 36.4 C L 86 16 122/73 94 08/06/24 09:10 36.8 C 85 17 123/69 95 08/06/24 08:40 36.7 C 86 17 130/79 94 08/06/24 08:30 36.4 C L 90 19 131/81 94 08/06/24 08:20 90 19 134/82 94 08/06/24 08:10 91 H 19 132/83 94 08/06/24 08:00 93 H 18 136/81 100 08/06/24 07:53 36.6 C 99 H 18 127/77 99 08/06/24 06:28 37.1 C 88 20 145/100 H 98 O2 Del Method O2 Flow Rate 08/06/24 11:40 Room Air 08/06/24 10:54 Room Air 08/06/24 10:32 Room Air 08/06/24 09:40 Room Air 08/06/24 09:10 Room Air 08/06/24 08:40 Room Air 08/06/24 08:30 Room Air 08/06/24 08:20 Room Air 08/06/24 08:10 Room Air 08/06/24 08:00 Oxymask 5 08/06/24 07:53 Oxymask 5 08/06/24 06:28 Room Air Laboratory Results Short CBC 08/06/24 Range/Units 05:24 WBC 9.83 (4.8-10.8) K/ul Hgb 10.5 L (12.0-16.0) g/dl Hct 31.8 L (37.0-47.0) % Plt Count 435 H (130-400) K/uL BMP 08/06/24 05:24 Sodium 139 Potassium 3.4 L Chloride 104 Carbon Dioxide 27 BUN 9 Creatinine 0.75 Glucose 99 Calcium 9.0 Medications Administered Home Medications Medication Instructions Recorded Confirmed Last Taken nortriptyline 50 mg capsule 50 mg PO 03/20/24 08/03/24 08/02/24 propranolol 60 mg capsule,24 60 mg PO [facility] 03/20/24 08/03/24 08/03/24 hr,extended release rosuvastatin 10 mg tablet 10 mg PO HS 03/20/24 08/03/24 08/02/24 tolterodine 2 mg capsule,extended 2 mg PO [facility] 0408/03/24 08/03/24 release 24 hr acetaminophen 300 mg-codeine 30 mg 1 tab PO Q6H PRN Mild Pain (Scale 08/03/24 08/03/24 08/03/24 tablet Score 1-4) aspirin 81 mg tablet,delayed 81 mg PO DAILY 08/03/24 08/03/24 08/03/24 release celecoxib 200 mg capsule 200 mg PO DAILY 08/03/24 08/03/24 08/03/24 gabapentin 300 mg capsule 300 mg PO BID 08/03/24 08/03/24 08/03/24 lisinopril 10 1 tab PO DAILY 08/03/24 08/03/24 Unknown mg-hydrochlorothiazide 12.5 mg tablet methimazole 5 mg tablet 5 mg PO QAM 08/03/24 08/03/24 08/03/24 oxycodone 5 mg tablet 5 mg PO Q4H PRN Pain 08/03/24 08/03/24 08/03/24 Active Medications Generic Name Dose Route Start Last Admin Trade Name [facility] PRN Reason Stop Dose Admin Acetaminophen 650 mg 08/03/24 23:34 08/05/24 00:01 Acetaminophen 325 Mg Tab PO 09/02/24 23:33 650 mg Q4H PRN Administration pain/fever Aspirin 81 mg 08/04/24 09:00 08/06/24 09:59 Aspirin 81 Mg Ectab PO 09/03/24 08:59 81 mg DAILY CORY Administration Gabapentin 300 mg 08/03/24 23:34 08/06/24 10:00 Gabapentin 300 Mg Cap PO 09/02/24 23:33 300 mg BID CORY Administration Lisinopril/HCTZ 1 tab 08/04/24 09:00 08/06/24 09:58 Lisinopril/Hctz 09/05.5mg Tab PO 09/03/24 08:59 1 tab DAILY CORY Administration Piperacillin Sod/Tazobactam Sod 4.5 gm in 100 mls @ 25 mls/hr 08/04/24 01:00 08/06/24 13:18 Zosyn IV 08/11/24 00:59 Infused Q8H CORY Infusion Vancomycin HCl 1,000 mg/ 270 mls @ 200 mls/hr 08/04/24 09:00 08/06/24 11:24 Sodium Chloride IV 08/11/24 08:59 Infused Q12H [facility]ORY Infusion Magnesium Oxide 400 mg 08/04/24 09:00 08/06/24 09:59 Magnesium Oxide 400 Mg Tab PO 09/03/24 08:59 400 mg QAM CORY Administration Methimazole 5 mg 08/04/24 09:00 08/06/24 09:58 Methimazole 5 Mg Tablet PO 09/03/24 08:59 5 mg QAM CORY Administration Nortriptyline HCl 50 mg 08/03/24 23:34 08/05/24 20:20 Nortriptyline Hcl 25 Mg Cap PO 09/02/24 23:33 50 mg HS CORY Administration Oxybutynin Chloride 5 mg 08/04/24 09:00 08/06/24 09:58 Oxybutynin Chloride Xl 5 Mg Tabcr PO 09/03/24 08:59 5 mg QAM CORY Administration Oxycodone HCl 5 mg 08/03/24 23:34 08/05/24 02:08 Oxycodone Hcl Ir 5 Mg Tab (Immediate Release) PO 08/17/24 23:33 5 mg Q4H PRN Administration Pain Propranolol HCl 60 mg 08/04/24 09:00 08/06/24 10:59 Propranolol Hcl 60 Mg La Cap PO 09/03/24 08:59 60 mg QAM CORY Administration Rosuvastatin Calcium 10 mg 08/04/24 21:00 08/05/24 20:20 Rosuvastatin Calcium 10 Mg Tab PO 09/03/24 20:59 10 mg HS CORY Administration
--- NOTE | 2024-08-06 15:09 | Anesthesiology Progress Note ---
Date of Service August 06, 2024 Anesthesia Post Procedure Vital Signs Vital Signs: Temp Pulse Pulse Resp BP BP Pulse Ox 08/06/24 11:40 36.7 C 95 H 16 142/84 H 95 08/06/24 10:54 08/06/24 10:32 36.8 C 90 17 122/78 95 08/06/24 09:40 36.4 C L 86 16 122/73 94 08/06/24 09:10 36.8 C 85 17 123/69 95 08/06/24 08:40 36.7 C 86 17 130/79 94 08/06/24 08:30 36.4 C L 90 19 131/81 94 08/06/24 08:20 90 19 134/82 94 08/06/24 08:10 91 H 19 132/83 94 08/06/24 08:00 93 H 18 136/81 100 08/06/24 07:53 36.6 C 99 H 18 127/77 99 08/06/24 06:28 37.1 C 88 20 145/100 H 98 08/05/24 20:15 08/05/24 20:15 36.8 C 90 18 164/96 H 95 08/05/24 15:39 36.5 C 79 17 144/87 H 97 O2 Del Method O2 Flow Rate 08/06/24 11:40 Room Air 08/06/24 10:54 Room Air 08/06/24 10:32 Room Air 08/06/24 09:40 Room Air 08/06/24 09:10 Room Air 08/06/24 08:40 Room Air 08/06/24 08:30 Room Air 08/06/24 08:20 Room Air 08/06/24 08:10 Room Air 08/06/24 08:00 Oxymask 5 08/06/24 07:53 Oxymask 5 08/06/24 06:28 Room Air 08/05/24 20:15 Room Air 08/05/24 20:15 Room Air 08/05/24 15:39 Room Air Pain Intensity Left Lower Leg: Pain Intensity: 4 Transfer of Care Handoff Completed per policy Notes Mental Status: alert / awake / arousable and participated in evaluation Nausea / Vomiting: adequately controlled Pain: adequately controlled Airway Patency, RR, SpO2: stable & adequate BP & HR: stable & adequate Hydration State: stable & adequate Anesthetic Complications: no major complications apparent and Pt Satisfied with anesthetic care
[2024-08-06] MEDS: LACTOBACILLUS ACIDOPHILUS 1 GM PACK PO SCH (23:50)
[2024-08-06] MEDS: LOPERAMIDE HCL 2 MG CAP PO STA (23:50)
[2024-08-07 07:03] LABS: Hematocrit (blood only) 30.1 % (37.0-47.0); Hemoglobin 9.8 g/dl (12.0-16.0); Mean Corpuscular Hemoglobin 27.5 pg (25.0-34.0); Mean Corpuscular Hgb Conc 32.6 g/dL (32.0-36.0); Mean Corpuscular Volume 84.6 fL (80.0-100.0); Mean Platelet Volume 9.5 fL (9.4-12.4); Platelet Count 474 K/uL (130-400); RDW Coefficient of Variation 13.6 % (11.5-14.5); RDW Standard Deviation 42.6 fL (36.4-46.3); Red Blood Count 3.56 M/uL (4.20-5.40); White Blood Count 13.11 K/ul (4.8-10.8)
[2024-08-07 07:24] LABS: BUN Creatinine Ratio 18.5 (10-20); Calcium 8.7 mg/dl (8.6-10.3); Creatinine Clr Calc Pharmacy 78.6 ml/min; Est GFR (African American) 89.6 ml/min; Est GFR (Non-African American) 77.3 ml/min; Potassium 3.9 mmol/L (3.5-5.1)
[2024-08-07 07:44] LABS: Ferritin 128.3 ng/ml (8-388)
[2024-08-07 07:50] LABS: Folate (Folic Acid),Ser orPlas 10.67 ng/ml (>5.38)
--- NOTE | 2024-08-07 11:26 | Surgery Progress Note ---
Date of Service August 07, 2024 Assessment & Plan (1) Abscess of left leg: Plan: Her pain is much improved Wound care is going to apply a wound VAC today She can follow-up in the wound clinic for management of her wound VAC and wound at this point If she needs further debridement, please reach out Surgery will sign off at this time, please call with any questions or concerns Admission and Anticipated Discharge Date Admission Date: August 03, 2024 Subjective Patient seen and examined. Pain controlled. Wound care nurse at bedside. Physical Exam Constitutional: WD/WN, vitals as above Skin: Wound base clean without purulence Results & Data Vital Signs (Past 12 Hours) Vital Signs Temp Pulse Pulse Resp BP Pulse Ox O2 Del Method 08/07/24 09:17 Room Air 08/07/24 07:47 36.3 C L 90 18 122/72 97 Room Air 08/07/24 04:00 36.4 C L 91 H 18 136/77 92 Room Air PG Care Time/CCT Total # of Minutes Spent Total Time Spent with Patient: Total time spent is greater than 50% in coordination of care (as documented) at patient's floor/unit and/or counseling patient: Coding Level of Care Code 26600 Post Operative Follow-Up Diagnoses Abscess of left leg L02.416
--- NOTE | 2024-08-07 15:44 | Hospitalist Progress Note ---
Date of Service August 07, 2024 Assessment & Plan (1) Cellulitis of left leg: Plan: Ms Perla is a 63-year-old female with past medical history significant for prediabetes, hyperlipidemia, allergic rhinitis, incidental pulmonary nodule, hypertension, overactive bladder, osteoarthrosis, chronic bilateral low back pain, myelopathy, postconcussion syndrome, lichen sclerosis, obesity, insomnia, hyperthyroidism comes because of left lower extremity cellulitis. Patient states she had a bug bite in the left calf region about a week ago she thinks it might be a spider bite. MRI obtained with large abscess noted. Surgery consulted and patient underwent I&D on 08/06 Wound vac placed today 08/07 Waiting final cultures Will dispo tomorrow #Cellulitis with abscess of LLE ?Bug bite Lyme negative Hemodynamics okay CRP 32,WBC 19 Received Vanco and Zosyn and clinda in the ER Continue Vanco and Zosyn BCx NGTD Surgery consulted for MRI findings:s/p I& D of abscess on 08/06 -[facility]PC seen PT/OT: #Normocytic anemia Baseline appears to be 13-14 prior to thoracic decompression, 11.6 post operatively no overt bleeding on exam low b12, start po supplementation #Prediabetes a1c 5.9 Diabetic diet #Hyperthyroidism On methimazole TSH 0.4 #Hypertension On propranolol and lisinopril/hctz Will monitor #Hyperlipidemia On statin #Thoracic Myelopathy s/p decompression 05/11/2024 Dr Cazares #Chronic back pain Recent back surgery PT/OT HHPT Continue home pain medications DVT prophylaxis Lovenox Disposition Medical floor Full code Admission and Anticipated Discharge Date Admission Date: August 03, 2024 Subjective Reports feeling well today Wound vac place this am Denies any uncontrolled pain Pending dipso once wound vac is approved for home Physical Exam Constitutional: WD/WN, vitals as above Respiratory: normal respiratory effort, lungs clear to auscultation Cardiovascular: RRR, no murmur, no edema Skin: LLE with near resolution of erythema, wound vac in place with good suction Results & Data Results & Data Vital Signs (Past 12 Hours) Vital Signs Temp Pulse Pulse Resp BP Pulse Ox O2 Del Method 08/07/24 09:17 Room Air 08/07/24 07:47 36.3 C L 90 18 122/72 97 Room Air 08/07/24 04:00 36.4 C L 91 H 18 136/77 92 Room Air Laboratory Results Short CBC 08/07/24 Range/Units 06:26 WBC 13.11 H (4.8-10.8) K/ul Hgb 9.8 L (12.0-16.0) g/dl Hct 30.1 L (37.0-47.0) % Plt Count 474 H (130-400) K/uL BMP 08/07/24 06:26 Sodium 141 Potassium 3.9 Chloride 105 Carbon Dioxide 29 BUN 15 Creatinine 0.81 Glucose 146 H Calcium 8.7 Medications Administered Home Medications Medication Instructions Recorded Confirmed Last Taken nortriptyline 50 mg capsule 50 mg PO HS 03/20/24 08/03/24 08/02/24 propranolol 60 mg capsule,24 60 mg PO QA 03/20/24 08/03/24 08/03/24 hr,extended release rosuvastatin 10 mg tablet 10 mg PO HS 03/20/24 08/03/24 08/02/24 tolterodine 2 mg capsule,extended 2 mg PO QAM 03/20/24 08/03/24 08/03/24 release 24 hr acetaminophen 300 mg-codeine 30 mg 1 tab PO Q6H PRN Mild Pain (Scale 08/03/24 08/03/24 08/03/24 tablet Score 1-4) aspirin 81 mg tablet,delayed 81 mg PO DAILY 08/03/24 08/03/24 08/03/24 release celecoxib 200 mg capsule 200 mg PO DAILY 08/03/24 08/03/24 08/03/24 gabapentin 300 mg capsule 300 mg PO BID 08/03/24 08/03/24 08/03/24 lisinopril 10 1 tab PO DAILY 08/03/24 08/03/24 Unknown mg-hydrochlorothiazide 12.5 mg tablet methimazole 5 mg tablet 5 mg PO QAM 08/03/24 08/03/24 08/03/24 oxycodone 5 mg tablet 5 mg PO Q4H PRN Pain 08/03/24 08/03/24 08/03/24 Active Medications Generic Name Dose Route Start Last Admin Trade Name Freq PRN Reason Stop Dose Admin Acetaminophen 650 mg 08/03/24 23:34 08/05/24 00:01 Acetaminophen 325 Mg Tab PO 09/02/24 23:33 650 mg Q4H PRN Administration pain/fever Aspirin 81 mg 08/04/24 09:00 08/07/24 08:36 Aspirin 81 Mg Ectab PO 09/03/24 08:59 81 mg DAILY CROY Administration Gabapentin 300 mg 08/03/24 23:34 08/07/24 08:35 Gabapentin 300 Mg Cap PO 09/02/24 23:33 300 mg BID CORY Administration Lisinopril/HCTZ 1 tab 08/04/24 09:00 08/07/24 08:35 Lisinopril/Hctz 12.5mg Tab PO 09/03/24 08:59 1 tab DAILY CORY Administration Piperacillin Sod/Tazobactam Sod 4.5 gm in 100 mls @ 25 mls/hr 08/04/24 01:00 08/07/24 12:38 Zosyn IV 08/11/24 00:59 Infused Q8H [facility] Infusion Vancomycin HCl 1,000 mg/ 270 mls @ 200 mls/hr 08/04/24 09:00 08/07/24 10:00 Sodium Chloride IV 08/11/24 08:59 Infused Q12H CORY Infusion Lactobacillus Acidophilus 1 packet 08/06/24 23:15 08/07/24 08:36 Lactobacillus Acidophilus 1 Gm Pack PO 09/05/24 23:14 1 packet BID CORY Administration Magnesium Oxide 400 mg 08/04/24 09:00 08/07/24 08:36 Magnesium Oxide 400 Mg Tab PO 09/03/24 08:59 400 mg QAM CORY Administration Methimazole 5 mg 08/04/24 09:00 08/07/24 08:35 Methimazole 5 Mg Tablet PO 09/03/24 08:59 5 mg QAM CORY Administration Nortriptyline HCl 50 mg 08/03/24 23:34 08/06/24 21:04 Nortriptyline Hcl 25 Mg Cap PO 09/02/24 23:33 50 mg HS CORY Administration Oxybutynin Chloride 5 mg 08/04/24 09:00 08/07/24 08:35 Oxybutynin Chloride Xl 5 Mg Tabcr PO 09/03/24 08:59 5 mg QAM CORY Administration Oxycodone HCl 5 mg 08/03/24 23:34 08/07/24 09:59 Oxycodone Hcl Ir 5 Mg Tab (Immediate Release) PO 08/17/24 23:33 5 mg Q4H PRN Administration Pain Propranolol HCl 60 mg 08/04/24 09:00 08/07/24 09:11 Propranolol Hcl 60 Mg La Cap PO 09/03/24 08:59 60 mg QAM CORY Administration Rosuvastatin Calcium 10 mg 08/04/24 21:00 08/06/24 21:04 Rosuvastatin Calcium 10 Mg Tab PO 09/03/24 20:59 10 mg HS CORY Administration
[2024-08-07] MEDS: CYANOCOBALAMIN (B-12) 500 MCG TABLET PO SCH (16:25)
[2024-08-08 06:32] LABS: Hematocrit (blood only) 33.2 % (37.0-47.0); Hemoglobin 10.5 g/dl (12.0-16.0); Mean Corpuscular Hemoglobin 27.1 pg (25.0-34.0); Mean Corpuscular Hgb Conc 31.6 g/dL (32.0-36.0); Mean Corpuscular Volume 85.8 fL (80.0-100.0); Mean Platelet Volume 10.7 fL (9.4-12.4); Platelet Count 405 K/uL (130-400); RDW Coefficient of Variation 13.8 % (11.5-14.5); RDW Standard Deviation 43.1 fL (36.4-46.3); Red Blood Count 3.87 M/uL (4.20-5.40); White Blood Count 11.54 K/ul (4.8-10.8)
[2024-08-08 07:01] LABS: BUN Creatinine Ratio 18.9 (10-20); Calcium 8.8 mg/dl (8.6-10.3); Est GFR (African American) 73.9 ml/min; Est GFR (Non-African American) 63.7 ml/min; Potassium 3.6 mmol/L (3.5-5.1)
[2024-08-08 08:23] VITALS: PULSE 85; RESP 17; TEMP 97.5; O2SAT 94
--- NOTE | 2024-08-08 10:58 | Discharge Summary ---
Discharge Summary Date of Service August 08, 2024 Principal Dx & Hospital Course #1 = Principal Diagnosis (1) Cellulitis of left leg: Ms Perla is a 63-year-old female with past medical history significant for prediabetes, hyperlipidemia, allergic rhinitis, incidental pulmonary nodule, hypertension, overactive bladder, osteoarthrosis, chronic bilateral low back pain, myelopathy, postconcussion syndrome, lichen sclerosis, obesity, insomnia, hyperthyroidism comes because of left lower extremity cellulitis. Patient states she had a bug bite in the left calf region about a week ago she thinks it might be a spider bite. MRI obtained with large abscess noted. Surgery consulted and patient underwent I&D on 08/06 Wound vac placed 08/07, culture with MRSA Discussed case over TT with Dr. Young, given no bone involvement can dispo on course of doxycycline po On day of discharge, patient was much improved. Wound Vac was in place. Home health coordinated for patient. #Cellulitis with abscess of LLE ?Bug bite Lyme negative Hemodynamics okay CRP 32,WBC 19 Received Vanco and Zosyn and clinda in the ER Continue Vanco and Zosyn BCx NGTD Surgery consulted for MRI findings:s/p I& D of abscess on 08/06 -MRSA on culture Discussed with ID via TT: no IV necessary Complete course of abx with doxycycline 100mg bid x 10 more days PT/OT: HH #Normocytic anemia Baseline appears to be 13-14 prior to thoracic decompression, 11.6 post operatively no overt bleeding on exam low b12, start po supplementation #Prediabetes a1c 5.9 Diabetic diet #Hyperthyroidism On methimazole TSH 0.4 #Hypertension On propranolol and lisinopril/hctz Will monitor #Hyperlipidemia On statin #Thoracic Myelopathy s/p decompression 05/11/2024 Dr Cazares #Chronic back pain Recent back surgery PT/OT HHPT Continue home pain medications Notes For Next Care Provider MRSA+ wound LLE,s/p ID on 08/06, wound vac on 08/07 Medication Changes From Visit Doxycyline 100mg bid x 10 days Cyanocobalamin 500mcg daily for low b12 Admission HPI Per Admitting Provider 63-year-old female with past medical history significant for prediabetes, hyperlipidemia, allergic rhinitis, incidental pulmonary nodule, hypertension, overactive bladder, osteoarthrosis, chronic bilateral low back pain, myelopathy, postconcussion syndrome, lichen sclerosis, obesity, insomnia, hyperthyroidism comes because of left lower extremity cellulitis. Patient states she had a bug bite in the left calf region about a week ago she thinks it might be a spider bite. She developed small wound at the bite site. Also developed erythema spreading into the left leg below knee downwards. And having a lot of pain. And having pain while ambulating. As it is is getting worse she came to the ER today. Denies any fevers. About 6 to 7 weeks ago she had a back surgery in [place] and she is ambulating with the cane currently. Has mild headache. Vision is okay. No runny nose or sore throat. Appetite is okay. No chest pain or shortness of breath. No nausea. No abdominal pain. Normal bowel and bladder movements. Hemodynamics are okay currently. Resting comfortably. Past medical history. As mentioned above. Past surgical history.Colonoscopy. Ligation of oviducts. Laminectomy. Left Achilles tendon tenotomy. Social history. No smoking. Quit alcohol 1997. No drug use. Family history. Sister had breast cancer. Mother had hypertension. Maternal grandmother had SLE. Paternal grandmother had diabetes, heart disorder. Admission Exam Per Admitting Provider General- Not in distress. Head- atraumatic Eyes- PERRL. ENT- oropharynx clear Neck- supple, no JVD. Lungs- clear to auscultation no wheezing or crackles. Heart- regular rhythm; no murmur, no gallop. Abdomen- normal bowel sounds, soft, nontender, no distension. Extremities- Left lower extremity erythematous and edematous and warm on palpation. Small wound seen in left calf lateral aspect. no obvious drainage seen Neuro- alert, oriented PERRL, no facial palsy; no dysarthria; moves extremities Discharge Exam Constitutional WD/WN, vitals as above Respiratory normal respiratory effort, lungs clear to auscultation Cardiovascular RRR, no murmur, no edema Musculoskeletal wound vac in place on LLE with suction, minimal surrounding erythema, minimal residual edema of LLE Updated Medication List Medication Instructions Recorded Confirmed Type nortriptyline 50 mg capsule 50 mg PO HS 03/20/24 08/03/24 History propranolol 60 mg capsule,24 60 mg PO QAM 03/20/24 08/03/24 History hr,extended release rosuvastatin 10 mg tablet 10 mg PO HS 03/20/24 08/03/24 History tolterodine 2 mg capsule,extended 2 mg PO QAM 03/20/24 08/03/24 History release 24 hr acetaminophen 300 mg-codeine 30 mg 1 tab PO Q6H PRN Mild Pain (Scale 08/03/24 08/03/24 History tablet Score 1-4) aspirin 81 mg tablet,delayed 81 mg PO DAILY 08/03/24 08/03/24 History release celecoxib 200 mg capsule 200 mg PO DAILY 08/03/24 08/03/24 History gabapentin 300 mg capsule 300 mg PO BID 08/03/24 08/03/24 History lisinopril 10 1 tab PO DAILY 08/03/24 08/03/24 History mg-hydrochlorothiazide 12.5 mg tablet methimazole 5 mg tablet 5 mg PO QAM 08/03/24 08/03/24 History oxycodone 5 mg tablet 5 mg PO Q4H PRN Pain 08/03/24 08/03/24 History Lactobacillus acidophilus, 1 packet PO DAILY #12 ea 08/08/24 Rx bul[place] 100 million cell granules packet (Unified Color) cyanocobalamin (vitamin B-12) 500 500 mcg PO QAM #30 tabs 08/08/24 Rx mcg tablet doxycycline hyclate 100 mg capsule 100 mg PO BID 10 days #20 caps 08/08/24 Rx Hospital Stay Data Consultations 08/03/24 20:25 ED Decision to Admit Stat 08/05/24 08:03 Consult General Surgery Routine Procedures Performed Operation Date: 08/06/24 07:15 Actual Procedures p Incision and Drainage of Left Lower Extremity Abscess(Not Applicable) - Basilio Lobo DO Diagnostic Imagining Performed 08/04/24 US venous doppler LE LT Routine 08/05/24 00:55 MR lower leg LT wo/w con Routine Pending Results Patient Have Any Pending Studies at Discharge: No Discharge Instructions Given to Patient (Per Discharging Provider) Continue wound care per wound care recommendations: wound vac to be changed every Saturday, Saturday and Saturday Wound care nursing will assist with home management. Please follow up with wound care appointment on 08/19/2024 at 9am You were admitted for leg infection and found to have an abscess. You underwent drainage of abscess on 08/06 You will complete a course of oral antibiotics: Doxycycline 100mg 1 tablet two times a day, your next dose is this evening You were noted to have low B12, this can exacerbate neuropathy and other symptoms. Please start oral b12 500mcg daily in the morning please consider continuing a daily probiotic while on antibiotics or a daily yogurt like Activia with "active cultures" to help prevent diarrhea on antibiotics. Total Time Total Time Spent Total Time Spent (In Minutes): 35
[2024-08-08] MEDS: DOXYCYCLINE HYCLATE 100 MG CAP PO STA (11:21)
[2024-08-08 11:35] VITALS: BP 157/100
== END 2024-08-08 12:45 | disposition home health service (06) | DRG 603 ==
LOC: ED 18:58 → SUATTDRO 22:32 → 3W 22:32